=== PATIENT | female | born 1945 | race Caucasian/White ===

== ENCOUNTER 2022-05-27 07:14 | Outpatient (REF) | payer MEDICARE, OTHER, SELFPAY ==
--- NOTE | ~2022-05-27 | XR_ITS ---
EXAMINATION: XR HAND WRIST, RIGHT XR HAND WRIST, LEFT CLINICAL INFORMATION: Bilateral hand and wrist pain. No injury. Pain right ankle and joints right foot, M25.571 COMPARISON: None TECHNIQUE: The right hand and wrist are imaged together in 4 large [id number] images with an additional navicular view for a total of 5 views. The left hand and wrist are imaged together in 3 large [id number] images with an additional navicular view for a total of 4 views. FINDINGS: Right: Mild generalized osteopenia. No superimposed periarticular demineralization. Ulnar variance is within neutral. There is borderline narrowing proximal radial carpal compartment. No erosive change or chondrocalcinosis. There are moderate to prominent osteoarthritic changes first carpometacarpal joint. Mild narrowing second, third, and fifth MCP joints without erosive change or subchondral sclerosis. Mild narrowing PIP joints. There are mild degenerative changes DIP joints, greatest index finger. No erosive changes. Left: Mild generalized osteopenia. No superimposed periarticular demineralization. Ulnar variance is within neutral. No erosive change or chondrocalcinosis. There are moderate to prominent osteoarthritic changes first carpometacarpal joint. Mild narrowing second MCP joint without erosive change or subchondral sclerosis. Mild narrowing PIP joints. Mild degenerative changes DIP joints, greatest index finger. No erosive changes. XR/XR hand wrist RT IMPRESSION: -Bilateral moderate to prominent osteoarthritis first CMC joints. -Variable bilateral mild narrowing MCP and interphalangeal joints. No erosive changes.
--- NOTE | ~2022-05-27 | XR_ITS ---
EXAMINATION: XR HAND WRIST, RIGHT XR HAND WRIST, LEFT CLINICAL INFORMATION: Bilateral hand and wrist pain. No injury. Pain right ankle and joints right foot, M25.571 COMPARISON: None TECHNIQUE: The right hand and wrist are imaged together in 4 large [id number]-[id number] images with an additional navicular view for a total of 5 views. The left hand and wrist are imaged together in 3 large [id number] images with an additional navicular view for a total of 4 views. FINDINGS: Right: Mild generalized osteopenia. No superimposed periarticular demineralization. Ulnar variance is within neutral. There is borderline narrowing proximal radial carpal compartment. No erosive change or chondrocalcinosis. There are moderate to prominent osteoarthritic changes first carpometacarpal joint. Mild narrowing second, third, and fifth MCP joints without erosive change or subchondral sclerosis. Mild narrowing PIP joints. There are mild degenerative changes DIP joints, greatest index finger. No erosive changes. Left: Mild generalized osteopenia. No superimposed periarticular demineralization. Ulnar variance is within neutral. No erosive change or chondrocalcinosis. There are moderate to prominent osteoarthritic changes first carpometacarpal joint. Mild narrowing second MCP joint without erosive change or subchondral sclerosis. Mild narrowing PIP joints. Mild degenerative changes DIP joints, greatest index finger. No erosive changes. XR/XR hand wrist LT IMPRESSION: -Bilateral moderate to prominent osteoarthritis first CMC joints. -Variable bilateral mild narrowing MCP and interphalangeal joints. No erosive changes.
[2022-05-27 09:29] LABS: MANUAL DIFF FLAG NO
[2022-05-27 10:12] LABS: Basophils Absolute Auto 0.1 X10*3/uL (0.0-0.2); Basophils Percent Auto 0.5 % (0-2); Eosinophils Absolute Auto 0.2 X10*3/uL (0.0-0.4); Eosinophils Percent Auto 1.2 % (0-4); Hematocrit 39.7 % (37.0-47.0); Hemoglobin 12.4 g/dl (12.0-16.0); Imm Gran Pct Auto 0.8 % (0.0-0.4); Lymphocytes Absolute Auto 1.6 X10*3/uL (1.2-4.9); Mean Corpuscular HGB Conc 31.2 g/dl (31.0-35.0); Mean Corpuscular Hemoglobin 28.1 pg (27.0-33.0); Mean Platelet Volume 10.4 fL (9.4-12.3); Monocytes Absolute Auto 0.7 X10*3/uL (0.1-1.2); Monocytes Percent Auto 5.6 % (2-11); Neutrophils Absolute Auto 10.4 x10*3/uL (2.0-8.3); Neutrophils Percent Auto 79.9 % (45-73); Platelet Count 361 X10*3/uL (160-400); Red Blood Count 4.41 X10*6/uL (4.20-5.50); Red Cell Distribution Width 14.8 % (11.0-16.0)
[2022-05-27 10:53] LABS: Erythrocyte Sedimentation Rate 8 MM/HR (0-20)
[2022-05-27 11:06] LABS: Estimated Average Glucose 126 mg/dL
[2022-05-27 11:09] LABS: Alanine Aminotransferase 21 U/L (0-31); Albumin Level 4.3 g/dL (3.5-5.0); Alkaline Phosphatase 74 U/L (39-117); Anion Gap 17 (12-20); Aspartate Amino Transferase 14 U/L (5-31); Bilirubin Total 0.8 mg/dL (0.0-1.0); Blood Urea Nitrogen 22 mg/dL (9-16); C Reactive Protein 0.54 mg/dL (< or = 0.50); Calcium 9.8 mg/dL (8.4-10.2); Carbon Dioxide 27 mmol/L (22-29); Chloride 101 mmol/L (96-108); Estimated Glomerular Filt Rate > 60; Glucose Random 110 mg/dL (60-115); Potassium 4.2 mmol/L (3.3-5.1); Rheumatoid Factor < 13.0 IU/mL (<15.0); Sodium 141 mmol/L (135-145)
[2022-05-27 11:12] LABS: Creatinine Urine 124.45 mg/dL; Total Protein Urine Random 12 mg/dL (<12)
[2022-05-27 11:32] LABS: HBS Num1 86.19 mIU/mL (0-7.99); HBc Num1 0.14 S/CO (0.00-0.79); HBsAGNum1 0.27 S/CO (0.00-0.99); Hepatitis B Core Antibody Nonreactive (Nonreactive); Hepatitis B Surface Antigen Negative (Negative); ~HepC Num1 0.07 S/CO (0.00-0.79); ~Hepatitis A Antibody IgM Nonreactive (Nonreactive); ~Hepatitis B Surface Antibody REACTIVE (Nonreactive); ~Hepatitis C Antibody Nonreactive (Nonreactive)
[2022-05-27 15:24] LABS: Appearance Urine Cloudy; Color Urine Yellow; Glucose Urine UA Negative (Negative); Leukocyte Esterase Urine Moderate (2+) (Negative); Nitrite Urine Positive (Negative); UMIC TRIGGER UA YES; Urine Blood Negative (Negative); Urine Ketones Negative (Negative); Urine Protein Negative (Neg-Trace)
[2022-05-27 15:27] LABS: Bacteria Urine 4+ (None Seen); Hyaline Casts Urine 0-2 /LPF (0-2); RBC Urine 0-2 /HPF (0-2); WBC Urine 21-50 /HPF (0-5)
[2022-05-29 19:48] LABS: TS Negative Control Passed; TS Panel A 0; TS Panel B 0; TS Positive Control Passed; TSpotTB Negative (Negative)
[2022-05-30 13:33] LABS: IgA 123 mg/dL (70-320); IgG 1087 mg/dL (600-1540); IgM 29 mg/dL (50-300)
[2022-05-30 14:54] LABS: Anti Nuclear Antibody Screen POSITIVE (NEGATIVE); Anti Nuclear Antibody Titer 1:40 titer; Prot Elec - Albumin 4.2 g/dL (3.8-4.8); Prot Elec - Alpha1 0.3 g/dL (0.2-0.3); Prot Elec - Beta 1 0.5 g/dL (0.4-0.6); Prot Elec - Beta 2 0.3 g/dL (0.2-0.5); Prot Elec - Total Protein 7.3 g/dL (6.1-8.1)
[2022-05-30 20:58] LABS: Anti DNA DS Antibody <1 IU/mL; Antibody to SS-A Antigen <1.0 NEG AI (<1.0 NEG); Antibody to SS-B Antigen <1.0 NEG AI (<1.0 NEG); Myeloperoxidase Antibody <1.0 AI; Proteinase 3 PR3 Antibodies <1.0 AI; SM/Ribonucleoprotein Ab <1.0 NEG AI (<1.0 NEG); Smith Protein <1.0 NEG AI (<1.0 NEG)
[2022-05-31 06:09] LABS: Complement C3 158 mg/dL (83-193)
[2022-05-31 12:29] LABS: Cyclic Citrullinated Peptide <16 UNITS
[2022-06-01 23:44] LABS: PTT (LAC) Screen 31 sec (<=40)
[2022-06-02 14:24] LABS: DNAds, Crithidia Antibody Negative (Negative)
[2022-06-02 21:20] LABS: Aldolase 5.8 U/L (<=8.1)
[2022-06-03 14:54] LABS: Centromere Protein A Ab <11 SI (<11); Centromere Protein B Ab <11 SI (<11); Fibrillarin Ab <11 SI (<11); PM SCL 100 Ab <11 SI (<11); PM SCL 75 Ab <11 SI (<11); RNA Polymerase III RP11 Ab <11 SI (<11); RNA Polymerase III RP155 Ab <11 SI (<11); SCL-70 Extractable Nuclear Ab <11 SI (<11); Th-To Ab <11 SI (<11); U1 SNRNP RNP 70KD <11 SI (<11); U1 SNRNP RNP A <11 SI (<11); U1 SNRNP RNP C <11 SI (<11)
[2022-06-03 20:18] LABS: Beta-2 Glycoprotein IgG <2.0 U/mL (<20.0); Beta-2 Glycoprotein IgM <2.0 U/mL (<20.0)
[2022-06-09 17:07] LABS: Cytosolic 5'nuc 1A Ab IgG <5 Units; Ej Ab <11 SI (<11); HMGCR Ab IgG <2 CU (<20); Jo-1 Ab <11 SI (<11); MDA5 Ab <11 SI (<11); Mi-2 alpha Ab <11 SI (<11); Mi-2 beta Ab <11 SI (<11); NXP-2 (MJ) Ab <11 SI (<11); Oj Ab <11 SI (<11); Pl-12 Ab <11 SI (<11); Pl-7 Ab <11 SI (<11); SRP Ab <11 SI (<11); TIF1 gamma Ab <11 SI (<11)
[2022-06-18 04:47] LABS: Cardiolipin IgG Ab <2.0 GPL-U/mL (<20.0); Cardiolipin IgM Ab <2.0 MPL-U/mL (<20.0)
== END 2022-05-27 07:15 | disposition home or self-care (01) ==
LOC: HO.XRAY 07:14
PROVIDERS: PCP Internal Medicine; Visit Provider Student in an Organized Health Care Education/Training Program
DX: M25.571 Pain in right ankle and joints of right foot (principal); M32.9 Systemic lupus erythematosus, unspecified; D68.61 Antiphospholipid syndrome; G89.29 Other chronic pain; Z79.52 Long term (current) use of systemic steroids; Z11.59 Encounter for screening for other viral diseases; Z13.1 Encounter for screening for diabetes mellitus; Z11.7 Encounter for testing for latent tuberculosis infection; Z99.81 Dependence on supplemental oxygen; Z79.899 Other long term (current) drug therapy; Z72.89 Other problems related to lifestyle
CPT/HCPCS: 36415; 73110; 73130; 80053; 81001; 82085; 82550; 82784; 83036; 83516; 83520; 84156; 84165; 84182; 84550; 85025; 85597; 85613; 85652; 85730; 86021; 86038; 86039; 86140; 86146; 86147; 86160; 86200; 86225; 86235; 86255; 86334; 86431; 86481; 86704; 86706; 86709; 86803; 87340; 99202

== ENCOUNTER 2022-06-08 08:37 | Outpatient (REF) | payer MEDICARE, OTHER, SELFPAY ==
--- NOTE | ~2022-06-08 | MM_ITS ---
EXAMINATION: BONE DENSITOMETRY CLINICAL INDICATION: Long-term (current) use of systemic steroids. COMPARISON: None (current study represents initial baseline exam). TECHNIQUE: Using a [employer] DXA System (software version: 13.1) manufactured by [employer], dual-energy x-ray absorptiometry was performed of the lumbar spine and left hip. The images are of good technical quality. Summary results are attached. FINDINGS: AP SPINE L1-L4: BMD 1.267 g/cm2, Z-score 1.6, T-score 0.7, normal. LEFT FEMUR, NECK: BMD 0.830 g/cm2, Z-score -0.1, T-score -1.5, osteopenia. LEFT FEMUR, TOTAL: BMD 0.968 g/cm2, Z-score 0.9, T-score -0.3, normal. IDENTIFIED RISK FACTORS: Menopause, glucocorticoids (chronic), history of fracture (adult), thiazide. HISTORY OF FRACTURE: Other. MEDICATIONS: Calcium, vitamin D. MM/XR DEXA axial skeleton IMPRESSION: 1. DIAGNOSIS: Osteopenia based on the lowest T-score value of -1.5 in the femoral neck applying World Health Organization criteria. 2. 10-YEAR FRACTURE RISK PREDICTION, FRAX: Major osteoporotic fracture (clinical spine, forearm, hip or shoulder) 25.7%. Hip fracture 5.8%. 3. Treatment Recommendations: NOF guidelines recommend consideration for treatment in postmenopausal women and men age 50 and older presenting with the following: -A hip or vertebral (clinical or morphometric) fracture. -T-score less than or equal to -2.5 at the femoral neck or spine after appropriate evaluation to exclude secondary causes. -Low bone mass at the hip or spine and a 10-year fracture probability by FRAX of greater than or equal to 3% for hip fracture or greater than or equal to 20% for major osteoporotic fracture based on the [place] adapted WHO algorithm. 4. Other Recommendations: All treatment decisions require clinical judgment and consideration of individual patient factors, including patient preferences, comorbidities, previous drug use, risk factors not captured in the FRAX model (e.g. frailty, falls, vitamin D deficiency, increased bone turnover, interval significant decline in bone density) and possible under or overestimation of fracture risk by FRAX. Additional medical evaluation for secondary cause of low bone mineral density may be appropriate. FUTURE SCAN RECOMMENDATION: People with diagnosed cases of osteoporosis or at high risk for fracture should have regular bone mineral density tests. For patients eligible for Medicare, routine testing is allowed once every 2 years. The testing frequency can be increased to one year for patients who have rapidly progressing disease, those who are receiving or discontinuing medical therapy to restore bone mass, or have additional risk factors.
== END 2022-06-08 08:38 | disposition home or self-care (01) ==
LOC: HO.MAMMO 08:37
PROVIDERS: PCP Internal Medicine; Visit Provider Student in an Organized Health Care Education/Training Program
DX: Z13.820 Encounter for screening for osteoporosis (principal); Z79.52 Long term (current) use of systemic steroids; Z78.0 Asymptomatic menopausal state
CPT/HCPCS: 77080

== ENCOUNTER → 2022-07-01 14:06 | Outpatient (BNVA) | payer MEDICARE, OTHER, SELFPAY | PROVIDERS: PCP Internal Medicine; Visit Provider Student in an Organized Health Care Education/Training Program | DX: M06.9 Rheumatoid arthritis, unspecified (principal); J84.9 Interstitial pulmonary disease, unspecified; Z79.52 Long term (current) use of systemic steroids | CPT/HCPCS: 99212 ==

== ENCOUNTER → 2022-07-13 12:34 | Outpatient (REF) | payer MEDICARE, OTHER, SELFPAY ==
--- NOTE | 2022-07-13 12:40 | CA_ITS ---
Transthoracic Echo with Contrast Patient (Last, First, Middle): Feli Glover, Gender: Female Date of : 1945 Age: 76 Procedure Date: 07/13/2022 Procedure Type: Transthoracic Echo with Contrast Location: OP Height: 170.18 cm Weight: 106.6 kg BSA: 2.17 m2 Heart Rate: 69 bpm BP: 122 / 62 mmHg Certified Welder: SB Referring MD: Shaila Kelly MD [facility] Worker: Tien Issa MD Symptoms: R06.02 - Shortness of breath Study Quality: Adequate w contrast ECG Rhythm: Sinus Conclusions: - 1. Hyperdynamic LV ejection fraction greater than 70% with impaired relaxation filling pattern 2. Cardiac valvular Dopplers within normal limits 3. Upper limits of normal RV systolic pressure 4. Mildly dilated ascending aorta 5. No pericardial effusion Findings Procedure Information Contrast agent, definity, is being given per protocol without apparent complications. Left Ventricle Normal left ventricular cavity size. There is normal left ventricular wall thickness. The left ventricular systolic function is hyperdynamic. The visually estimated ejection fraction is >70%. Spectral Doppler is indicative of an impaired relaxation filling pattern. Right Ventricle The right ventricle was not well visualized. Atria The left atrium is normal in size. Interatrial shunt cannot be excluded. The right atrium was not well visualized. Aortic Valve The aortic valve was not well visualized. There is mild calcification of the aortic valve. There is no aortic valve stenosis. There is no aortic valve regurgitation. Mitral Valve The mitral valve was not well visualized. There is mild anterior mitral leaflet thickening. There is mild mitral annular calcification. There is trace mitral valve regurgitation. There is no mitral valve stenosis. Pulmonic Valve The pulmonic valve was not well visualized. Tricuspid Valve Likely normal tricuspid valve structure and function. There is mild tricuspid valve regurgitation. Normal right atrial pressure. There is no evidence of pulmonary hypertension. Great Vessels The pulmonary artery was not well visualized. There is mild dilatation of the ascending aorta. Venous The inferior vena cava is normal in size and collapses greater than 50% with inspiration. Pericardium/Pleural There is no evidence of pericardial effusion. Prior Study Comparison No prior study available for comparison. Measurements 2D Linear Measurements IVSd: 1.12 0.6-0.9/0.6-1.0 cm LVIDd: 4.67 3.9-5.3/4.2-5.9 cm LVIDd Index: 2.15 2.4-3.2/2.2-3.1 cm/m2 LVIDs: 3.15 2.0-3.6 cm LVPWd: 1.39 0.7-1.1 cm LA Diam: 3.90 2.7-3.8/3.0-4.0 cm LAIDs Index: 1.80 1.5-2.3 cm/m2 LV Mass: 279.03 67-162/88-224 g LV Mass Index: 128.59 43-95/49-115 g/m2 LVOT Diam: 2.20 3.0+(-)1.3 cm 2D Systolic Function EF 4C: 73.50 >55% EF 2C: 75.20 >55% EF BiP: 73.40 >55% Mitral Valve MV Pk E: 0.81 MV PK A: 1.22 MV Decel Time: 284.00 E/A: 0.70 E'Lateral: 4.73 E'Medial: 5.08 E/E' Med: 15.90 E/E' Lat: 17.10 PHT: 83.00 MVA PHT: 2.65 Decel Medina: 2.84 Aortic Valve AoV Pk Han: 1.48 AoV Pk Grad: 9.00 ANDREY: 3.42 LVOT LVOT Pk Han: 1.36 LVOT Mn Han: 0.98 LVOT VTI: 0.30 LVOT Pk Grad: 7.00 LVOT Mn Grad: 4.00 LVOT Diam: 2.20 LVOT Area: 3.80 Diastolic Function MV Pk E: 0.81 MV Pk A: 1.22 E/A: 0.70 E'Medial: 5.08 E/E' Med: 15.90 E' Laterial: 4.73 E/E' Lat: 17.10 Right Ventricle TAPSE (mm): 15.30 TVS' Han: 13.90 Tricuspid Valve TR Pk Han: 2.88 TR Pk Grad: 33.00 RA Press: 3.00 RVSP: 36.00 Great Vessels Aorta Sinus of Valsalva: 3.80 2.0-3.5 cm Ao Asc: 4.10 2.1-3.4 cm Pulmonary Valve PV Pk Han: 1.11 Peak PV Grad: 5.00 Updated in Other Vendor System with Status of Final Tien Issa MD electronically signed on 07/14/2022 11:58:56 AM with status of Final
[2022-07-13 12:51] LABS: MANUAL DIFF FLAG NO
[2022-07-13 13:16] LABS: Basophils Absolute Auto 0.1 X10*3/uL (0.0-0.2); Basophils Percent Auto 0.6 % (0-2); Eosinophils Percent Auto 0.3 % (0-4); Hematocrit 38.5 % (37.0-47.0); Hemoglobin 12.2 g/dl (12.0-16.0); Imm Gran Abs Auto 0.13 X10*3/uL (0.00-0.03); Imm Gran Pct Auto 1.1 % (0.0-0.4); Lymphocytes Absolute Auto 1.3 X10*3/uL (1.2-4.9); Lymphocytes Percent Auto 11.8 % (20-40); Mean Corpuscular HGB Conc 31.7 g/dl (31.0-35.0); Mean Corpuscular Hemoglobin 28.6 pg (27.0-33.0); Mean Corpuscular Volume 90.4 fL (80.0-98.0); Mean Platelet Volume 10.5 fL (9.4-12.3); Monocytes Absolute Auto 0.5 X10*3/uL (0.1-1.2); Monocytes Percent Auto 4.6 % (2-11); Neutrophils Absolute Auto 9.3 x10*3/uL (2.0-8.3); Neutrophils Percent Auto 81.6 % (45-73); Platelet Count 340 X10*3/uL (160-400); Red Blood Count 4.26 X10*6/uL (4.20-5.50); Red Cell Distribution Width 14.8 % (11.0-16.0); White Blood Count 11.4 X10*3/uL (4.8-10.8)
[2022-07-13 13:38] LABS: Alanine Aminotransferase 21 U/L (0-31); Albumin Level 4.4 g/dL (3.5-5.0); Alkaline Phosphatase 61 U/L (39-117); Anion Gap 14 (12-20); Aspartate Amino Transferase 18 U/L (5-31); Bilirubin Total 0.5 mg/dL (0.0-1.0); Blood Urea Nitrogen 25 mg/dL (9-16); C Reactive Protein < 0.10 mg/dL (< or = 0.50); Calcium 10.2 mg/dL (8.4-10.2); Carbon Dioxide 27 mmol/L (22-29); Chloride 101 mmol/L (96-108); Estimated Glomerular Filt Rate > 60; Glucose Random 130 mg/dL (60-115); Potassium 4.1 mmol/L (3.3-5.1); Sodium 138 mmol/L (135-145); Total Protein 6.8 g/dL (6.5-8.0)
[2022-07-13 14:03] LABS: Erythrocyte Sedimentation Rate 3 MM/HR (0-20)
== END ==
LOC: HO.CARD 12:34
PROVIDERS: PCP Internal Medicine; Visit Provider Student in an Organized Health Care Education/Training Program
DX: R06.02 Shortness of breath (principal); M06.9 Rheumatoid arthritis, unspecified
CPT/HCPCS: 36415; 80053; 85025; 85652; 86140; 93306; Q9957

== ENCOUNTER → 2022-08-23 11:48 | Outpatient (BNVA) | payer MEDICARE, OTHER, SELFPAY | PROVIDERS: Visit Provider Student in an Organized Health Care Education/Training Program | DX: Z71.89 Other specified counseling (principal) | CPT/HCPCS: 99211 ==

== ENCOUNTER 2022-10-18 11:44 | Outpatient (AMB) | payer MEDICARE, OTHER, SELFPAY ==
--- NOTE | 2022-10-18 12:04 | A.OFFVIS_ITS ---
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: No Allergies pirfenidone Adverse Reaction (Mild, Verified 10/18/22 12:11) Hives Iodinated Contrast Media Adverse Reaction (Unknown, Verified 10/18/22 12:11) Chest Pain Medication List - Last Reconciled 10/18/22 by Shaila Kelly MD alprazolam 1 mg PO TID PRN amlodipine 5 mg PO DAILY atorvastatin 40 mg PO DAILY benzonatate 100 mg PO TID PRN calcium carbonate-vitamin D2 600 mg calcium- 200 unit tabs PO DAILY clonidine HCl 0.2 mg PO BID diclofenac sodium 1% 4 grams topical QID fluoxetine 20 mg PO DAILY isosorbide mononitrate ER 30 mg PO DAILY lisinopril-hydrochlorothiazide 20-25 mg 1 tab PO DAILY montelukast 10 mg PO DAILY omeprazole 40 mg PO BID prednisone Take 2 tabs by mouth once daily for 2 weeks then 1.5 tabs for 2 weeks then 1 tab daily for 2 weeks then half tab daily for 2 weeks then stop tocilizumab (Actemra ACTPen) 162 mg (0.9 mL) subcut Q2W trazodone 50 mg PO BEDTIME PRN umeclidinium 62.5 mcg/actuation (Incruse Ellipta) ea inhalation HPI HPI Comments History of Present Illness Details 76-year-old female with seronegative rheumatoid arthritis and inters titial lung disease on 4 L of oxygen returns for follow-up. She has been using Actemra for almost 3 months now. She states that her joint inflammation is better overall but states that the medication works for about 1 week to 10 days and it starts wearing off. She continues to have pain in her lower back. States that her knees buckle and she feels that she is about to fall but she has not fallen any time recently. States that she sometimes gets chest pain with exertion. She is currently taking Ofev regularly without GI upset Initial history: This is a 76-year-old female with a past medical history of ILD on 4 L of oxygen who presents for evaluation of multiple joint pains. Patient states she used to follow up with tableau administrator Dr. Marroquin since her 50s. She states she was told she has osteoarthritis. She mentions that her sister was recently diagnosed with rheumatoid arthritis. 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 States that her shortness of breath have been progressively worsening. Patient mentions that over the last 6 months she has developed worsening joint pain affecting her wrists, knees, especially the ankles, back pain radiating to her hips.. Sometimes associated with swelling. States that the joint pain and stiffness is generally much worse in the morning, morning stiffness improving after at least 1 hour. She was prescribed varying doses of prednisone up to 40 mg daily, currently she is finishing up a prednisone taper. She is currently on 10 mg of prednisone daily. Stated that the prednisone at least gives her a 50% relief. She denies Raynaud's. Denies any skin changes. Mentions that recently she has been having difficulty swallowing liquids. Denies any history of DVT/PE. [facility] Medical History Anxiety Atherosclerosis Barretts esophagus Depression Gastroesophageal reflux disease with hiatal hernia Generalized osteoarthritis Hypertension [facility] systemic steroid user Low back pain Lung disease, interstitial Subclinical hypothyroidism Surgical History Hx of colonoscopy Family History Mother Type 2 diabetes mellitus Hypertension Rheumatoid arthritis Hyperlipidemia Renal failure Father Coronary artery disease Brother Hyperlipidemia Hypertension Sister Hyperlipidemia Hypertension Social History Alcohol intake: never Patient Tobacco Use Status: Former Tobacco user Quit Date: 1989 Current occupational status: retired 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 Review of Systems Const Reports weight gain (Due to reduced mobility) Eyes Reports no additional complaints ENT Reports dry mouth Card Reports dyspnea and Reports dyspnea on exertion Resp Reports dyspnea and Reports dyspnea on exertion GI Reports no additional complaints Musc Reports arthralgias, Reports joint swelling and Reports stiffness Neuro Reports no additional complaints Psych Reports abnormal sleep pattern, Reports anxiety and Reports depression Physical Exam Vital Signs: Last Vital Signs Temp 97.8 F 10/18/22 12:06 Pulse 96 10/18/22 12:06 Resp 19 10/18/22 12:06 BP 126/68 10/18/22 12:06 Oxygen Delivery Method Nasal Cannula 10/18/22 12:06 Oxygen Flow Rate 4 10/18/22 12:06 Const General: cooperative, healthy appearing and comfortable Nutritional Appearance: obese Orientation/consciousness: patient oriented x3 HEENT Other: Mildly dry oral mucosa Head: Yes normocephalic and Yes atraumatic Resp Effort & Inspection: normal respiratory effort and able to speak in complete sentences Auscultation: diminished lung sounds bilateral in the lower lung rayo Cardio Rate: regular rate Rhythm: regular rhythm Heart sounds: S1 normal heart sound present and S2 normal heart sound present GI Inspection: No distended Palpation (GI): Soft to palpation and nontender Skin General skin exam: no rashes or lesions noted Neuro General: patient oriented x3 Extrem Other: No synovitis hands wrists bilaterally Bilateral knee crepitus Left knee pain with full flexion Right ankle swelling and tenderness at the lateral aspect, left ankle swelling without tenderness Normal nailfold capillaroscopy Results Reviewed Results Reviewed: PFTs 2018? TLC 87%? FVC 87%? DLCO 62% PFTs 10/21/2019? TLC 73% FVC 89%? DLCO 52% PFTs 12/2020? TLC 69% FVC 74% DLCO 40% HRCT chest comment per patient's resource room teacher Dr. Robin Last CT chest was in 12/2020 and this noted subpleural reticulation and traction bronchiectasis, some mild ground-glass changes.? Overall the CT scan did show mild progresses since 2018 and the progression since 2016 Assessment & Plan Assessment & Plan (1) Rheumatoid arthritis: Comment: seroneg dx 06/23 Actemra started 07/24 Code(s): M06.9 - Rheumatoid arthritis, unspecified Plan: This is a 76-year-old female with seronegative RA& concomitant interstitial lung disease returns for follow-up. Was started on Actemra 3 months ago which is effective for about a week to 10 days then joint pain and swelling returns. Patient is heavier than 100 kg and should qualify for Actemra 162 mg once weekly. Advance Actemra to 162 mg once weekly. Patient stated that she has had labs done recently by her PCP and resource room teacher. Advised patient to reach out to her providers to send me recent labs. Labs before next visit in 3 months Patient has low back pain is likely due to degenerative disc disease of lumbar spine. Patient has done physical therapy for her back in the past without improvement. I suggested pain management evaluation but patient declined. She also states that her knees buckle, but no history of falls. 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 However her FRAX for major osteoporotic fracture is 25.7% and hip fracture is 5.8%. Steroids have been discontinued. Discussed risks and benefits of alendronate. Start alendronate 70 mg once weekly. Continue calcium and vitamin-D (3) Lung disease, interstitial: Code(s): J84.9 - Interstitial pulmonary disease, unspecified Plan: Patient now able to tolerate Ofev. Continue to follow-up with pulmonary. 2D echo did not show evidence of pulmonary arterial hypertension (4) Ascending aortic aneurysm: Code(s): I71.21 - Aneurysm of the ascending aorta, without rupture Qualifiers: Presence of rupture: without rupture Qualified Code(s): I71.21 - Aneurysm of the ascending aorta, without rupture Plan: Referred to Cardiology Plan I spent 49 minutes reviewing patient's chart, evaluating patient, ordering diagnostic workup, counseling patient and documenting in the chart Orders: Orders Complete Blood Count Auto Diff 3 Months M06.9 - Rheumatoid arthritis, unspecified Comprehensive Met. Panel 3 Months M06.9 - Rheumatoid arthritis, unspecified C Reactive Protein 3 Months M06.9 - Rheumatoid arthritis, unspecified Erythrocyte Sedimentation Rate 3 Months M06.9 - Rheumatoid arthritis, unspecified Vitamin D 25-OH (D2 and D3) Today Z13.21 - Encounter for screening for nutritional disorder Referrals Cardiology Referral I71.21 - Aneurysm of the ascending aorta, without rupture Medications: New alendronate Take 1 tab once weekly. 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
[2022-10-18 12:06] VITALS: BP 126/68; PULSE 96; RESP 19; TEMP 36.6; BMI 36.3
== END 2022-10-18 13:25 | disposition home or self-care (01) ==
PROVIDERS: PCP Internal Medicine; Visit Provider Student in an Organized Health Care Education/Training Program
DX: M06.9 Rheumatoid arthritis, unspecified (principal); Z79.52 Long term (current) use of systemic steroids; J84.9 Interstitial pulmonary disease, unspecified; I71.21 Aneurysm of the ascending aorta, without rupture
CPT/HCPCS: 99215

== ENCOUNTER → 2022-10-18 11:44 | Outpatient (BNVA) | payer MEDICARE, OTHER, SELFPAY | PROVIDERS: PCP Internal Medicine; Visit Provider Student in an Organized Health Care Education/Training Program | DX: M06.9 Rheumatoid arthritis, unspecified (principal); J84.9 Interstitial pulmonary disease, unspecified; M54.50 Low back pain, unspecified; I71.21 Aneurysm of the ascending aorta, without rupture; Z99.81 Dependence on supplemental oxygen; Z79.52 Long term (current) use of systemic steroids; Z79.899 Other long term (current) drug therapy | CPT/HCPCS: 99212 ==

== ENCOUNTER 2023-01-13 11:25 | Outpatient (REF) | payer MEDICARE, OTHER, SELFPAY ==
[2023-01-13 11:34] LABS: MANUAL DIFF FLAG NO
[2023-01-13 12:49] LABS: Basophils Absolute Auto 0.1 X10*3/uL (0.0-0.2); Basophils Percent Auto 0.8 % (0-2); Eosinophils Absolute Auto 0.5 X10*3/uL (0.0-0.4); Eosinophils Percent Auto 4.5 % (0-4); Hematocrit 37.5 % (37.0-47.0); Imm Gran Abs Auto 0.03 X10*3/uL (0.00-0.03); Imm Gran Pct Auto 0.3 % (0.0-0.4); Lymphocytes Absolute Auto 2.8 X10*3/uL (1.2-4.9); Lymphocytes Percent Auto 27.1 % (20-40); Mean Corpuscular Hemoglobin 27.9 pg (27.0-33.0); Mean Corpuscular Volume 87.2 fL (80.0-98.0); Mean Platelet Volume 10.7 fL (9.4-12.3); Monocytes Absolute Auto 0.9 X10*3/uL (0.1-1.2); Monocytes Percent Auto 8.8 % (2-11); Neutrophils Percent Auto 58.5 % (45-73); Platelet Count 351 X10*3/uL (160-400); Red Cell Distribution Width 15.6 % (11.0-16.0); White Blood Count 10.3 X10*3/uL (4.8-10.8)
[2023-01-13 13:21] LABS: Alanine Aminotransferase 15 U/L (0-31); Albumin Level 4.4 g/dL (3.5-5.0); Alkaline Phosphatase 67 U/L (39-117); Anion Gap 17 (12-20); Aspartate Amino Transferase 16 U/L (5-31); Bilirubin Total 0.6 mg/dL (0.0-1.0); Blood Urea Nitrogen 10 mg/dL (9-16); C Reactive Protein 0.88 mg/dL (< or = 0.50); Calcium 9.5 mg/dL (8.4-10.2); Carbon Dioxide 27 mmol/L (22-29); Chloride 100 mmol/L (96-108); Estimated Glomerular Filt Rate > 60; Glucose Random 88 mg/dL (60-115); Potassium 3.1 mmol/L (3.3-5.1); Sodium 141 mmol/L (135-145); Total Protein 7.7 g/dL (6.5-8.0)
[2023-01-13 13:29] LABS: Erythrocyte Sedimentation Rate 18 MM/HR (0-20)
[2023-01-17 15:48] LABS: Vitamin D 25-OH, D2 <4 ng/mL; Vitamin D 25-OH, D3 29 ng/mL; Vitamin D 25-OH, Total 29 ng/mL (30-100)
== END 2023-01-13 11:26 | disposition home or self-care (01) ==
LOC: HO.LAB 11:25
PROVIDERS: PCP Internal Medicine; Visit Provider Student in an Organized Health Care Education/Training Program
DX: M06.9 Rheumatoid arthritis, unspecified (principal); E55.9 Vitamin D deficiency, unspecified; Z13.21 Encounter for screening for nutritional disorder
CPT/HCPCS: 36415; 80053; 82306; 85025; 85652; 86140

== ENCOUNTER 2023-01-18 09:45 | Outpatient (AMB) | payer MEDICARE, OTHER, SELFPAY ==
[2023-01-18 10:06] VITALS: BP 106/78; PULSE 77; RESP 19; TEMP 36.6; O2SAT 95; BMI 35.5
--- NOTE | 2023-01-18 10:06 | MHC.OFFVIS ---
Intake Vital Signs 01/18/23 10:06 Height 5 ft 6 in Weight 220 lb BMI 35.5 BP 106/78 Blood Pressure Location Rt brachial Respiration 19 Pulse 77 Pulse Source Pulse Oximeter Temp 97.9 F Temp Source Skin Pulse Oximetry (%) 95 Oxygen Delivery Method Nasal Cannula Oxygen Flow Rate 4 Intake Visit Reasons: RA/follow up and actemra teaching Intake Note: Patient presents today to follow up on RA. Referrals- Cardio booked 01/16/23 Conservation Science Teacher Required: No Accompanied by: Self / Same As Patient Allergies pirfenidone Adverse Reaction (Mild, Verified 01/18/23 10:08) Hives Iodinated Contrast Media Adverse Reaction (Unknown, Verified 01/18/23 10:08) Chest Pain Medication List - Last Reconciled 01/18/23 by Sue Wiley RN alendronate 70 mg PO QWEEK alprazolam 1 mg PO TID PRN amlodipine 5 mg PO DAILY atorvastatin 40 mg PO DAILY benzonatate 100 mg PO TID PRN calcium carbonate-vitamin D2 600 mg calcium- 200 unit tabs PO DAILY clonidine HCl 0.2 mg PO BID diclofenac sodium 1% 4 grams topical QID fluoxetine 20 mg PO DAILY isosorbide mononitrate ER 30 mg PO DAILY lisinopril-hydrochlorothiazide 20-25 mg 1 tab PO DAILY montelukast 10 mg PO DAILY omeprazole 40 mg PO BID prednisone Take 2 tabs by mouth once daily for 2 weeks then 1.5 tabs for 2 weeks then 1 tab daily for 2 weeks then half tab daily for 2 weeks then stop tocilizumab (Actemra ACTPen) 162 mg (0.9 mL) subcut QWEEK trazodone 50 mg PO BEDTIME PRN umeclidinium 62.5 mcg/actuation (Incruse Ellipta) ea inhalation HPI HPI Comments History of Present Illness Details 76-year-old female with seronegative rheumatoid arthritis and interstitial lung disease on 4 L of oxygen returns for follow-up. States that since Actemra was increased to weekly dosing her joint stiffness and inflammation is much better overall. She states that some days she has difficulty with injecting the Actemra. She received teaching by Sue butterfield nurse in clinic today. Her her ankle swelling is improved and she can wear shoes now. She states however that she would still get some days with joint pain. Over the last 3 months, she used prednisone about 6 days. She recalls an episode of diffuse joint pain after taking the flu vaccine, COVID vaccine and RSV vaccine in 1 day. Mentions that her knees buckle rarely. Did not fall. Shortness of breath is about the same. She gets intermittent mid sternal chest pain. Unrelated to activity. Compliant with Fosamax. Initial history: This is a 76-year-old female with a past medical history of ILD on 4 L of oxygen who presents for evaluation of multiple joint pains. Patient states she used to follow up with wildlife conservation officer Dr. Marroquin since her 50s. She states she was told she has osteoarthritis. She mentions that her sister was recently diagnosed with rheumatoid arthritis. 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 States that her shortness of breath have been progressively worsening. Patient mentions that over the last 6 months she has developed worsening joint pain affecting her wrists, knees, especially the ankles, back pain radiating to her hips.. Sometimes associated with swelling. States that the joint pain and stiffness is generally much worse in the morning, morning stiffness improving after at least 1 hour. She was prescribed varying doses of prednisone up to 40 mg daily, currently she is finishing up a prednisone taper. She is currently on 10 mg of prednisone daily. Stated that the prednisone at least gives her a 50% relief. She denies Raynaud's. Denies any skin changes. Mentions that recently she has been having difficulty swallowing liquids. Denies any history of DVT/PE. [facility] Medical History [facility] systemic steroid user Subclinical hypothyroidism Depression Lung disease, interstitial Low back pain Hypertension Generalized osteoarthritis Gastroesophageal reflux disease with hiatal hernia Barretts esophagus Atherosclerosis Anxiety Surgical History Hx of colonoscopy Family History Mother Type 2 diabetes mellitus Hypertension Rheumatoid arthritis Hyperlipidemia Renal failure Father Coronary artery disease Brother Hyperlipidemia Hypertension Sister Hyperlipidemia Hypertension Social History Alcohol intake: never Patient Tobacco Use Status: Former Tobacco user Quit Date: 1989 Current occupational status: retired 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 Review of Systems Card Reports dyspnea and Reports dyspnea on exertion Resp Reports dyspnea and Reports dyspnea on exertion Musc Reports arthralgias and Reports stiffness Neuro Reports no additional complaints Psych Reports abnormal sleep pattern, Reports anxiety and Reports depression Physical Exam Vital Signs: Last Vital Signs Temp 97.9 F 01/18/23 10:06 Pulse 77 01/18/23 10:06 Resp 19 01/18/23 10:06 BP 106/78 01/18/23 10:06 Pulse Ox 95 01/18/23 10:06 Oxygen Delivery Method Nasal Cannula 01/18/23 10:06 Oxygen Flow Rate 4 01/18/23 10:06 BMI result Body Mass Index 35.5 Const General: cooperative, healthy appearing and comfortable Nutritional Appearance: obese Orientation/consciousness: patient oriented x3 HEENT Other: Mildly dry oral mucosa Head: Yes normocephalic and Yes atraumatic Resp Effort & Inspection: normal respiratory effort and able to speak in complete sentences Auscultation: diminished lung sounds bilateral in the lower lung rayo Cardio Rate: regular rate Rhythm: regular rhythm Heart sounds: S1 normal heart sound present and S2 normal heart sound present GI Inspection: No distended Palpation (GI): Soft to palpation and nontender Skin General skin exam: no rashes or lesions noted Neuro General: patient oriented x3 Extrem Other: No synovitis hands wrists bilaterally Bilateral knee crepitus Left knee pain with full flexion Bilateral soft tissue ankle swelling without tenderness or warmth Normal nailfold capillaroscopy Results Reviewed Results Reviewed: PFTs 2018? TLC 87%? FVC 87%? DLCO 62% PFTs 10/21/2019? TLC 73% FVC 89%? DLCO 52% PFTs 12/2020? TLC 69% FVC 74% DLCO 40% HRCT chest comment per patient's group home manager Dr. Robin Last CT chest was in 12/2020 and this noted subpleural reticulation and traction bronchiectasis, some mild ground-glass changes.? Overall the CT scan did show mild progresses since 2018 and the progression since 2016 Assessment & Plan Assessment & Plan (1) Rheumatoid arthritis: Comment: seroneg dx 06/23 Actemra started 07/24 Code(s): M06.9 - Rheumatoid arthritis, unspecified Qualifiers: Rheumatoid arthritis location: multiple sites Rheumatoid factor presence: without rheumatoid factor Qualified Code(s): M06.09 - Rheumatoid arthritis without rheumatoid factor, multiple sites Plan: This is a 76-year-old female with seronegative RA& concomitant interstitial lung disease returns for follow-up. Doing better since Actemra dose was increased to weekly dosing. Continue Actemra 162 mg weekly. Can take prednisone 5-10 mg once daily as needed for joint pain She also states that her knees buckle rarely, but no history of falls. I suggested Orthopedics evaluation, patient declined. 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 However her FRAX for major osteoporotic fracture is 25.7% and hip fracture is 5.8%. Patient is now only on prednisone 5-10 mg daily as needed. Over the last 3 months but, patient used prednisone 6 6 times Alendronate was started 10/2022. Well tolerated. Continue. Plan to repeat DEXA 10/2024 (3) Lung disease, interstitial: Code(s): J84.9 - Interstitial pulmonary disease, unspecified Plan: Patient now able to tolerate Ofev. Continue to follow-up with pulmonary. 2D echo did not show evidence of pulmonary arterial hypertension (4) Ascending aortic aneurysm: Code(s): I71.21 - Aneurysm of the ascending aorta, without rupture Qualifiers: Presence of rupture: without rupture Qualified Code(s): I71.21 - Aneurysm of the ascending aorta, without rupture Plan: Referred to Cardiology (5) Chest pain: Code(s): R07.9 - Chest pain, unspecified Qualifiers: Chest pain type: other chest pain Qualified Code(s): R07.89 - Other chest pain Plan: Patient has an appointment with Cardiology tomorrow (6) Chronic hypokalemia: Code(s): E87.6 - Hypokalemia Plan: Mild hypokalemia, can be related to diarrhea from Ofev. Advised patient to follow-up with her group home manager. Plan I spent 49 minutes reviewing patient's chart, evaluating patient, ordering diagnostic workup, counseling patient and documenting in the chart Orders: Orders Complete Blood Count Auto Diff 3 Months M06.9 - Rheumatoid arthritis, unspecified Erythrocyte Sedimentation Rate 3 Months M06.9 - Rheumatoid arthritis, unspecified Comprehensive Met. Panel 3 Months M06.9 - Rheumatoid arthritis, unspecified C Reactive Protein 3 Months M06.9 - Rheumatoid arthritis, unspecified Medications: Changed From prednisone Take 2 tabs by mouth once daily for 2 weeks then 1.5 tabs for 2 weeks then 1 tab daily for 2 weeks then half tab daily for 2 weeks then stop 70 tabs 1RF To prednisone 10 mg PO DAILY PRN 30 tabs 1RF pain NS Coding Level of Care Code Est Pt Level 5 (58006) Diagnoses Rheumatoid arthritis of multiple sites with negative rheumatoid factor M06.09 Rheumatoid arthritis location: multiple sites Rheumatoid factor presence: without rheumatoid factor [facility] systemic steroid user Z79.52 Lung disease, interstitial J84.9 Aneurysm of ascending aorta without rupture I71.21 Presence of rupture: without rupture Other chest pain R07.89 Chest pain type: other chest pain Chronic hypokalemia E87.6
== END 2023-01-18 10:44 | disposition home or self-care (01) ==
PROVIDERS: PCP Internal Medicine; Visit Provider Student in an Organized Health Care Education/Training Program
DX: M06.09 Rheumatoid arthritis without rheumatoid factor, multiple sites (principal); Z79.52 Long term (current) use of systemic steroids; J84.9 Interstitial pulmonary disease, unspecified; I71.21 Aneurysm of the ascending aorta, without rupture; R07.89 Other chest pain; E87.6 Hypokalemia
CPT/HCPCS: 99215

== ENCOUNTER → 2023-01-18 09:45 | Outpatient (BNVA) | payer MEDICARE, OTHER, SELFPAY | PROVIDERS: PCP Internal Medicine; Visit Provider Student in an Organized Health Care Education/Training Program | DX: M06.09 Rheumatoid arthritis without rheumatoid factor, multiple sites (principal); J84.9 Interstitial pulmonary disease, unspecified; I71.21 Aneurysm of the ascending aorta, without rupture; R07.89 Other chest pain; E87.6 Hypokalemia; Z79.52 Long term (current) use of systemic steroids | CPT/HCPCS: 99212 ==

== ENCOUNTER 2023-01-19 13:12 | Outpatient (AMB) | payer MEDICARE, OTHER, SELFPAY ==
[2023-01-19 13:19] VITALS: BP 114/62; PULSE 84
--- NOTE | 2023-01-19 13:19 | MHC.OFFVIS ---
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/Mild dilation of thoracic aorta+ CP Intake Note: NPV w/ EKG Speech And Language Assistant Required: No Accompanied by: Self / Same As Patient Allergies pirfenidone Adverse Reaction (Mild, Verified 01/18/23 10:08) Hives Iodinated Contrast Media Adverse Reaction (Unknown, Verified 01/18/23 10:08) Chest Pain Medication List - Last Reconciled 01/19/23 by Ashutosh Valdovinos MD alendronate 70 mg PO QWEEK alprazolam 1 mg PO TID PRN amlodipine 5 mg PO DAILY atorvastatin 40 mg PO DAILY benzonatate 100 mg PO TID PRN calcium carbonate-vitamin D2 600 mg calcium- 200 unit tabs PO DAILY clonidine HCl 0.2 mg PO BID diclofenac sodium 1% 4 grams topical QID fluoxetine 20 mg PO DAILY isosorbide mononitrate ER 30 mg PO DAILY lisinopril-hydrochlorothiazide 20-25 mg 1 tab PO DAILY montelukast 10 mg PO DAILY omeprazole 40 mg PO BID prednisone 10 mg PO DAILY PRN NS tocilizumab (Actemra ACTPen) 162 mg (0.9 mL) subcut QWEEK trazodone 50 mg PO BEDTIME PRN umeclidinium 62.5 mcg/actuation (Incruse Ellipta) ea inhalation HPI HPI Comments History of Present Illness Details Feli is here for evaluation of dilated aorta seen on the echocardiogram. Patient herself denies any history of coronary disease or myocardial infarction. She states that she has seen [facility] [place] cardiology few years ago but does not have any regular follow-up. She gets occasional chest pains as well as jaw pain. These can happen randomly at rest as well as during exertion. However, her main issues rather chronic lung disease. She states she has a diagnosis of idiopathic pulmonary fibrosis and is on supplemental oxygen. Her life is quite limited because of that. She also has significant anxiety and depression which is evident on just having a conversation with her. [facility] Medical History nursing home systemic steroid user Subclinical hypothyroidism Depression Lung disease, interstitial Low back pain Hypertension Generalized osteoarthritis Gastroesophageal reflux disease with hiatal hernia Barretts esophagus Atherosclerosis Anxiety Surgical History Hx of colonoscopy Family History Mother Type 2 diabetes mellitus Hypertension Rheumatoid arthritis Hyperlipidemia Renal failure Father Coronary artery disease Brother Hyperlipidemia Hypertension Sister Hyperlipidemia Hypertension Social History Alcohol intake: never Patient Tobacco Use Status: Former Tobacco user Quit Date: 1989 Current occupational status: retired 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) Review of Systems Const Denies chills, Denies daytime sleepiness, Denies fatigue, Denies fever(s), Denies frequent falls, Denies night sweats, Denies snoring, Denies weakness, Denies weight gain and Denies weight loss Eyes Denies loss of vision ENT Denies dizziness and Denies hearing loss Card Denies chest pain, Denies chest pain with activity, Denies syncope, Denies rapid heart rate, Denies edema, Denies claudication, Denies leg edema, Denies lightheadedness, Denies palpitations, Denies dyspnea, Denies dyspnea on exertion and Denies orthopnea Resp Denies cough, Denies excessive phlegm production, Denies dyspnea, Denies dyspnea on exertion, Denies snoring and Denies wheezing GI Denies abdominal pain, Denies hematochezia, Denies change in bowel habits, Denies change in stool character, Denies heartburn, Denies nausea and Denies vomiting Denies hematuria, Denies urinary frequency and Denies dysuria Musc Denies arthralgias, Denies muscle weakness, Denies numbness and Denies tingling Skin/Breast Denies nail changes and Denies rash Neuro Denies Abnormal speech present, Denies dizziness, Denies syncope, Denies frequent falls, Denies loss of vision, Denies memory loss, Denies numbness, Denies tingling and Denies weakness Psych Denies depression and Denies memory loss Endo Denies fatigue and Denies palpitations Aller/Immun Denies wheezing Physical Exam Vital Signs: Last Vital Signs Pulse 84 01/19/23 13:19 BP 114/62 01/19/23 13:19 Const General: comfortable and no acute distress Orientation/consciousness: patient oriented x3 HEENT Other: Unremarkable Head: Yes normal to inspection Neck Neck: Yes normal visual inspection Chest Chest palpation & inspection: normal inspection of the chest Resp Auscultation: crackles Cardio Palpation: normal PMI Heart sounds: S1 normal heart sound present, S2 normal heart sound present, no gallops, no murmurs and no rubs GI Palpation (GI): Soft to palpation Back/Spine/Pelvis Other: unremarkable Skin General skin exam: no rashes or lesions noted Neuro General: patient oriented x3 Speech: No Abnormal speech present Extrem General: Yes normal to inspection Psych Mental Status: mental status grossly normal Office Procedures EKG Details: EKG with sinus rhythm at 84/Min; rightward axis; incomplete right bundle-branch block; inferior as well as anterolateral ST depression. In her specific case, suspect mostly from right ventricular strain. Less likely from LAD ischemia. [id number], Complete Assessment & Plan Assessment & Plan (1) Ascending aortic aneurysm: Code(s): I71.21 - Aneurysm of the ascending aorta, without rupture Qualifiers: Presence of rupture: without rupture Qualified Code(s): I71.21 - Aneurysm of the ascending aorta, without rupture (2) Chest pain: Code(s): R07.9 - Chest pain, unspecified Qualifiers: Chest pain type: other chest pain Qualified Code(s): R07.89 - Other chest pain (3) Abnormal EKG: Code(s): R94.31 - Abnormal electrocardiogram [ECG] [EKG] Plan In the recent echocardiogram, LVEF hyperdynamic at greater than 70%. No reported wall motion abnormalities. Otherwise unremarkable. Ascending aortic size 4.[address] chest from [facility] [place] 2021, ascending aortic size was 4.4 cm with heavy mural calcification. With regard to the dilated aorta itself, no specific management in her case. Pathophysiology discussed. The current size, no indication for intervention. Due to chronic lung disease, highly unlikely that she will ever qualify for surgery even if it enlarges to a massive size in the future. With regard to abnormal EKG with ST depressions, suspect it is all because of the chronic lung disease and right ventricular strain type patterns. Suspect LAD ischemia to be less likely but can not rule it out. Discussed about this with the patient. Considering her chronic lung issues as well as supplemental oxygen use, not a candidate for stress testing. Cardiac catheterization may also be too invasive as she does not have any clear-cut symptoms apart from occasional chest pains. Rational for care discussed. Patient also feels that she would rather not get any procedures and just take medications only, as she feels that the lung disease is going to keep progressing- limiting her quality as well as length of her life. Hence she can continue long-acting nitrates that she already takes. Additionally, take sublingual nitroglycerin as needed. She is on aspirin statins. Risk factor modification as much able. Will try to review old cardiology records from [facility] [place] and a prior EKG. Medications: New nitroglycerin do not exceed 3 doses per episode 0.4 mg sublingual Q5M PRN 30 tabs 5RF chest pain R07.2 - Precordial pain nitroglycerin do not exceed 3 doses per episode 0.4 mg sublingual Q5M PRN 30 tabs 5RF chest pain R07.2 - Precordial pain Coding Level of Care Code New Pt Level 4 (46004) Diagnoses Aneurysm of ascending aorta without rupture I71.21 Presence of rupture: without rupture Other chest pain R07.89 Chest pain type: other chest pain Abnormal EKG R94.31 CPT Codes EKG - CPT: 95553-[id number], Complete ([id number])
== END 2023-01-19 13:59 | disposition home or self-care (01) ==
PROVIDERS: PCP Internal Medicine; Visit Provider Internal Medicine
DX: I71.21 Aneurysm of the ascending aorta, without rupture (principal); R07.89 Other chest pain; R94.31 Abnormal electrocardiogram [ECG] [EKG]
CPT/HCPCS: 93010; 99204

== ENCOUNTER → 2023-01-19 13:12 | Outpatient (BNVA) | payer MEDICARE, OTHER, SELFPAY | PROVIDERS: PCP Internal Medicine; Visit Provider Internal Medicine | DX: R94.31 Abnormal electrocardiogram [ECG] [EKG] (principal); R07.89 Other chest pain; I71.21 Aneurysm of the ascending aorta, without rupture | CPT/HCPCS: 93005 ==

== ENCOUNTER 2023-04-17 13:27 | Outpatient (REF) | payer MEDICARE, OTHER, SELFPAY ==
[2023-04-17 13:39] LABS: MANUAL DIFF FLAG NO
[2023-04-17 13:58] LABS: Basophils Absolute Auto 0.1 X10*3/uL (0.0-0.2); Basophils Percent Auto 0.7 % (0-2); Eosinophils Absolute Auto 0.4 X10*3/uL (0.0-0.4); Hemoglobin 12.1 g/dl (12.0-16.0); Imm Gran Abs Auto 0.05 X10*3/uL (0.00-0.03); Imm Gran Pct Auto 0.5 % (0.0-0.4); Lymphocytes Absolute Auto 2.8 X10*3/uL (1.2-4.9); Mean Corpuscular HGB Conc 31.8 g/dl (31.0-35.0); Mean Corpuscular Hemoglobin 28.3 pg (27.0-33.0); Mean Platelet Volume 10.7 fL (9.4-12.3); Monocytes Absolute Auto 0.8 X10*3/uL (0.1-1.2); Monocytes Percent Auto 7.4 % (2-11); Neutrophils Absolute Auto 6.3 x10*3/uL (2.0-8.3); Neutrophils Percent Auto 60.4 % (45-73); Platelet Count 330 X10*3/uL (160-400); Red Blood Count 4.27 X10*6/uL (4.20-5.50); Red Cell Distribution Width 15.2 % (11.0-16.0); White Blood Count 10.4 X10*3/uL (4.8-10.8)
[2023-04-17 14:31] LABS: Alanine Aminotransferase 19 U/L (0-31); Albumin Level 4.1 g/dL (3.5-5.0); Alkaline Phosphatase 65 U/L (39-117); Anion Gap 14 (12-20); Aspartate Amino Transferase 16 U/L (5-31); Bilirubin Total 0.4 mg/dL (0.0-1.0); Blood Urea Nitrogen 19 mg/dL (9-16); C Reactive Protein 0.41 mg/dL (< or = 0.50); Calcium 9.6 mg/dL (8.4-10.2); Carbon Dioxide 28 mmol/L (22-29); Chloride 101 mmol/L (96-108); Estimated Glomerular Filt Rate > 60; Glucose Random 105 mg/dL (60-115); Sodium 140 mmol/L (135-145); Total Protein 7.4 g/dL (6.5-8.0)
[2023-04-17 14:38] LABS: Erythrocyte Sedimentation Rate 12 MM/HR (0-20)
== END 2023-04-17 13:28 | disposition home or self-care (01) ==
LOC: HO.LAB 13:27
PROVIDERS: PCP Internal Medicine; Visit Provider Student in an Organized Health Care Education/Training Program
DX: M06.9 Rheumatoid arthritis, unspecified (principal)
CPT/HCPCS: 36415; 80053; 85025; 85652; 86140

== ENCOUNTER 2023-04-24 10:41 | Outpatient (AMB) | payer MEDICARE, OTHER, SELFPAY ==
[2023-04-24 10:51] VITALS: BP 100/60; PULSE 96
--- NOTE | 2023-04-24 10:51 | A.OFFVIS_ITS ---
Intake Vital Signs 04/24/23 10:51 Height 5 ft 6 in BMI Reason not done Patient refused/unable BP 100/60 Blood Pressure Location Lt brachial Position Sitting Pulse 96 Intake Visit Reasons: 3 month Intake Note: 3 month follow up Fish Housekeeper Required: No Accompanied by: Self / Same As Patient Allergies pirfenidone Adverse Reaction (Mild, Verified 04/24/23 10:56) Hives Iodinated Contrast Media Adverse Reaction (Unknown, Verified 04/24/23 10:56) Chest Pain Medication List - Last Reconciled 04/24/23 by Ashutosh Valdovinos MD alendronate 70 mg PO QWEEK alprazolam 1 mg PO TID PRN amlodipine 5 mg PO DAILY aspirin 81 mg PO DAILY atorvastatin 40 mg PO DAILY benzonatate 100 mg PO TID PRN calcium carbonate-vitamin D2 600 mg calcium- 200 unit tabs PO DAILY clonidine HCl 0.2 mg PO BID diclofenac sodium 1% 4 grams topical QID fluoxetine 20 mg PO DAILY isosorbide mononitrate ER 30 mg PO DAILY lisinopril-hydrochlorothiazide 20-25 mg 1 tab PO DAILY montelukast 10 mg PO DAILY nitroglycerin 0.4 mg sublingual Q5M PRN omeprazole 40 mg PO BID prednisone 10 mg PO DAILY PRN tocilizumab (Actemra ACTPen) 162 mg (0.9 mL) subcut QWEEK trazodone 50 mg PO BEDTIME PRN umeclidinium 62.5 mcg/actuation (Incruse Ellipta) ea inhalation HPI HPI Comments History of Present Illness Details Feli returns for follow-up. In the past seen regarding dilated aorta on the echocardiogram. Patient herself does not have any known coronary disease. She does occasionally get chest/jaw pain. Can randomly happened. Main issue still chronic pulmonary disease with diagnosis of idiopathic pulmonary fibrosis and she is also on supplemental oxygen. Overall, limited activities mainly from shortness of breath. 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 Subclinical hypothyroidism Depression Lung disease, interstitial Low back pain Hypertension Generalized osteoarthritis Gastroesophageal reflux disease with hiatal hernia Barretts esophagus Atherosclerosis Anxiety Surgical History Hx of colonoscopy Family History Mother Type 2 diabetes mellitus Hypertension Rheumatoid arthritis Hyperlipidemia Renal failure Father Coronary artery disease Brother Hyperlipidemia Hypertension Sister Hyperlipidemia Hypertension Social History Alcohol intake: never Patient Tobacco Use Status: Former Tobacco user Quit Date: 1989 Current occupational status: retired 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 Review of Systems Const Denies weakness ENT Denies dizziness Card Denies chest pain, Denies chest pain with activity, Denies syncope, Denies rapid heart rate, Denies pedal edema, Denies edema, Denies leg edema, Denies lightheadedness, Denies palpitations, Denies dyspnea, Denies dyspnea on exertion and Denies orthopnea Resp Denies cough, Denies dyspnea and Denies dyspnea on exertion GI Denies hematochezia and Denies change in stool character Musc Denies abnormal gait, Denies muscle cramps, Denies muscle weakness, Denies numbness, Denies radiating pain into limb and Denies tingling Neuro Denies Abnormal speech present, Denies abnormal gait, Denies dizziness, Denies syncope, Denies numbness, Denies tingling and Denies weakness Endo Denies palpitations Physical Exam Vital Signs: Last Vital Signs Pulse 96 04/24/23 10:51 BP 100/60 04/24/23 10:51 Const General: comfortable and no acute distress Orientation/consciousness: patient oriented x3 HEENT Other: Unremarkable Head: Yes normal to inspection Neck Neck: Yes normal visual inspection Chest Chest palpation & inspection: normal inspection of the chest Resp Auscultation: crackles Cardio Palpation: normal PMI Heart sounds: S1 normal heart sound present, S2 normal heart sound present, no gallops, no murmurs and no rubs GI Palpation (GI): Soft to palpation Back/Spine/Pelvis Other: unremarkable Skin General skin exam: no rashes or lesions noted Neuro General: patient oriented x3 Speech: No Abnormal speech present Extrem General: Yes normal to inspection Psych Mental Status: mental status grossly normal Assessment & Plan Assessment & Plan (1) Ascending aortic aneurysm: Code(s): I71.21 - Aneurysm of the ascending aorta, without rupture Qualifiers: Presence of rupture: without rupture Qualified Code(s): I71.21 - Aneurysm of the ascending aorta, without rupture (2) Chest pain: Code(s): R07.9 - Chest pain, unspecified Qualifiers: Chest pain type: other chest pain Qualified Code(s): R07.89 - Other chest pain (3) Abnormal EKG: Code(s): R94.31 - Abnormal electrocardiogram [ECG] [EKG] Plan Echocardiogram from 2022- LVEF hyperdynamic at greater than 70%. No reported wall motion abnormalities. Otherwise unremarkable. Ascending aortic size 4.[address] chest from [facility] 2021, ascending aortic size was 4.4 cm with heavy mural calcification. With regard to the ascending aortic size, no specific management in her care. She will not be suitable for any major aortic surgery even if it enlarges mainly due to her advanced lung disease. Specifically discussed this in great detail. She also has an abnormal EKG with ST depressions. It was thought to be from chronic lung disease and right ventricular strain but less likely from LAD ischemia. With regard to the occasional chest/jaw pain, we discussed different options. She is certainly not suitable for stress testing from advanced lung disease. With regard to cardiac catheterization, again will be difficult as she may not be able to lie flat and also on supplemental oxygen. We discussed risks/benefits at great length and per her own preference, we decided to just manage this medically as we had done in the past. Any case, this chest pain/jaw pain is too bothersome, she will immediately contact us. She can continue long-acting nitrates and sublingual nitroglycerin as needed. Aspirin/statins. [facility] cardiology note from 2021 also reviewed and plan was somewhat similar with mainly recommend medical therapy and avoid cardiac catheterization as much able. Coding Level of Care Code Est Pt Level 4 (83755) Diagnoses Aneurysm of ascending aorta without rupture I71.21 Presence of rupture: without rupture Other chest pain R07.89 Chest pain type: other chest pain Abnormal EKG R94.31
== END 2023-04-24 11:21 | disposition home or self-care (01) ==
PROVIDERS: PCP Internal Medicine; Visit Provider Internal Medicine
DX: I71.21 Aneurysm of the ascending aorta, without rupture (principal); R07.89 Other chest pain; R94.31 Abnormal electrocardiogram [ECG] [EKG]
CPT/HCPCS: 99214

== ENCOUNTER → 2023-04-24 10:41 | Outpatient (BNVA) | payer MEDICARE, OTHER, SELFPAY | PROVIDERS: PCP Internal Medicine; Visit Provider Internal Medicine | DX: I71.21 Aneurysm of the ascending aorta, without rupture (principal); R94.31 Abnormal electrocardiogram [ECG] [EKG]; R07.89 Other chest pain | CPT/HCPCS: 99212 ==

== ENCOUNTER 2023-04-25 09:21 | Outpatient (AMB) | payer MEDICARE, OTHER, SELFPAY ==
--- NOTE | 2023-04-25 09:24 | MHC.OFFVIS ---
Intake Vital Signs 04/25/23 09:32 Height 5 ft 6 in BMI Reason not done Patient refused/unable BP 98/60 Pulse 78 Pulse Source Pulse Oximeter Temp 96.4 F L Temp Source Skin Pulse Oximetry (%) 95 Oxygen Delivery Method Room Air Comment Pt states she weighs 224lbs. Intake Visit Reasons: RA Intake Note: Patient last seen 01/18/23 presents today for follow up and test results. Reports increased joint pain, especially with cold weather. 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 Accompanied by: Self / Same As Patient Allergies pirfenidone Adverse Reaction (Mild, Verified 04/25/23 09:35) Hives Iodinated Contrast Media Adverse Reaction (Unknown, Verified 04/25/23 09:35) Chest Pain Medication List - Last Reconciled 04/25/23 by Shaila Kelly MD alendronate 70 mg PO QWEEK alprazolam 1 mg PO TID PRN amlodipine 5 mg PO DAILY aspirin 81 mg PO DAILY atorvastatin 40 mg PO DAILY benzonatate 100 mg PO TID PRN calcium carbonate-vitamin D2 600 mg calcium- 200 unit tabs PO DAILY clonidine HCl 0.2 mg PO BID diclofenac sodium 1% 4 grams topical QID fluoxetine 20 mg PO DAILY isosorbide mononitrate ER 30 mg PO DAILY lisinopril-hydrochlorothiazide 20-25 mg 1 tab PO DAILY loperamide (Anti-Diarrheal (loperamide)) mg PO montelukast 10 mg PO DAILY nintedanib (Ofev) 100 mg PO Q12H nitroglycerin 0.4 mg sublingual Q5M PRN omeprazole 40 mg PO BID prednisone 10 mg PO DAILY PRN tocilizumab (Actemra ACTPen) 162 mg (0.9 mL) subcut QWEEK trazodone 50 mg PO BEDTIME PRN umeclidinium 62.5 mcg/actuation (Incruse Ellipta) ea inhalation HPI HPI Comments History of Present Illness Details 77-year-old female with seronegative rheumatoid arthritis and interstitial lung disease on 4 L of oxygen returns for follow-up. On Actemra weekly and prednisone 5-10 mg as needed for joint pain. She generally uses prednisone about 3 times a month. She stated that over the last 2 weeks she has been having more joint pain especially in her lower back, ankles, knees she took prednisone today. She states that she has been having back pain for years. It radiates to her hips. She does not recall getting any specific treatment related to her back arthritis Compliant with Fosamax. Initial history: This is a 76-year-old female with a past medical history of ILD on 4 L of oxygen who presents for evaluation of multiple joint pains. Patient states she used to follow up with general office associate Dr. Marroquin since her 50s. She states she was told she has osteoarthritis. She mentions that her sister was recently diagnosed with rheumatoid arthritis. 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 States that her shortness of breath have been progressively worsening. Patient mentions that over the last 6 months she has developed worsening joint pain affecting her wrists, knees, especially the ankles, back pain radiating to her hips.. Sometimes associated with swelling. States that the joint pain and stiffness is generally much worse in the morning, morning stiffness improving after at least 1 hour. She was prescribed varying doses of prednisone up to 40 mg daily, currently she is finishing up a prednisone taper. She is currently on 10 mg of prednisone daily. Stated that the prednisone at least gives her a 50% relief. She denies Raynaud's. Denies any skin changes. Mentions that recently she has been having difficulty swallowing liquids. Denies any history of DVT/PE. [facility] Medical History care home systemic steroid user Subclinical hypothyroidism Depression Lung disease, interstitial Low back pain Hypertension Generalized osteoarthritis Gastroesophageal reflux disease with hiatal hernia Barretts esophagus Atherosclerosis Anxiety Surgical History Hx of colonoscopy Family History Mother Type 2 diabetes mellitus Hypertension Rheumatoid arthritis Hyperlipidemia Renal failure Father Coronary artery disease Brother Hyperlipidemia Hypertension Sister Hyperlipidemia Hypertension Social History Alcohol intake: never Patient Tobacco Use Status: Former Tobacco user Quit Date: 1989 Current occupational status: retired Current occupation: [employer] Review of Systems Card Reports dyspnea and Reports dyspnea on exertion Resp Reports dyspnea and Reports dyspnea on exertion Musc Reports back pain, Reports arthralgias, Reports joint swelling and Reports stiffness Neuro Reports no additional complaints Psych Reports abnormal sleep pattern, Reports anxiety and Reports depression Physical Exam Vital Signs: Last Vital Signs Temp 96.4 F L 04/25/23 09:32 Pulse 78 04/25/23 09:32 BP 98/60 04/25/23 09:32 Pulse Ox 95 04/25/23 09:32 Oxygen Delivery Method Room Air 04/25/23 09:32 Const General: cooperative, healthy appearing and comfortable Nutritional Appearance: obese Orientation/consciousness: patient oriented x3 HEENT Other: Mildly dry oral mucosa Head: Yes normocephalic and Yes atraumatic Resp Effort & Inspection: normal respiratory effort and able to speak in complete sentences Auscultation: crackles bilateral at the base and diminished lung sounds bilateral in the lower lung rayo Cardio Rate: regular rate Rhythm: regular rhythm Heart sounds: S1 normal heart sound present and S2 normal heart sound present GI Inspection: No distended Palpation (GI): Soft to palpation and nontender Skin General skin exam: no rashes or lesions noted Neuro General: patient oriented x3 Extrem Other: No synovitis hands wrists bilaterally Bilateral knee crepitus Left knee pain with full flexion Right lateral malleolus swelling and tenderness Normal nailfold capillaroscopy Results Reviewed Results Reviewed: PFTs 2018? TLC 87%? FVC 87%? DLCO 62% PFTs 10/21/2019? TLC 73% FVC 89%? DLCO 52% PFTs 12/2020? TLC 69% FVC 74% DLCO 40% HRCT chest comment per patient's soaking tank worker Dr. Robin Last CT chest was in 12/2020 and this noted subpleural reticulation and traction bronchiectasis, some mild ground-glass changes.? Overall the CT scan did show mild progresses since 2018 and the progression since 2016 Assessment & Plan Assessment & Plan (1) Rheumatoid arthritis: Comment: seroneg dx 06/23 Actemra started 07/24 advanced to weekly 11/2022 Code(s): M06.9 - Rheumatoid arthritis, unspecified Qualifiers: Rheumatoid arthritis location: multiple sites Rheumatoid factor presence: without rheumatoid factor Qualified Code(s): M06.09 - Rheumatoid arthritis without rheumatoid factor, multiple sites Plan: This is a 77-year-old female with seronegative RA& concomitant interstitial lung disease returns for follow-up. On Actemra weekly. Doing well overall except for mild RA flare. Continue Actemra 162 mg weekly. Take prednisone 10 mg daily for 5 days then 5 mg daily for 5 days then go back to her usual dosing schedule (5-10 mg once daily as needed for joint pain). 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 However her FRAX for major osteoporotic fracture is 25.7% and hip fracture is 5.8%. Patient is now only on prednisone 5-10 mg daily as needed. Over the last 3 months but, patient used prednisone 6 6 times Alendronate was started 10/2022. Well tolerated. Continue. Plan to repeat DEXA 10/2024 (3) Lung disease, interstitial: Code(s): J84.9 - Interstitial pulmonary disease, unspecified Plan: Patient now able to tolerate Ofev. Continue to follow-up with pulmonary. 2D echo did not show evidence of pulmonary arterial hypertension (4) Ascending aortic aneurysm: Code(s): I71.21 - Aneurysm of the ascending aorta, without rupture Qualifiers: Presence of rupture: without rupture Qualified Code(s): I71.21 - Aneurysm of the ascending aorta, without rupture Plan: Per cardiology. Patient will not be a candidate for any major intervention (5) Chest pain: Code(s): R07.9 - Chest pain, unspecified Qualifiers: Chest pain type: other chest pain Qualified Code(s): R07.89 - Other chest pain Plan: Evaluated by clinical academic allergist. They recommended against stress testing or cardiac catheterization as patient has advanced lung disease and will not tolerate the procedure (6) Chronic hypokalemia: Code(s): E87.6 - Hypokalemia Plan: Mild hypokalemia, can be related to diarrhea from Ofev. Advised patient to follow-up with her soaking tank worker. Plan I spent 49 minutes reviewing patient's chart, evaluating patient, ordering diagnostic workup, counseling patient and documenting in the chart Orders: Orders Complete Blood Count Auto Diff 3 Months M06.9 - Rheumatoid arthritis, unspecified Comprehensive Met. 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
[2023-04-25 09:32] VITALS: BP 98/60; PULSE 78; TEMP 35.8; O2SAT 95
== END 2023-04-25 10:11 | disposition home or self-care (01) ==
PROVIDERS: PCP Internal Medicine; Visit Provider Student in an Organized Health Care Education/Training Program
DX: M06.09 Rheumatoid arthritis without rheumatoid factor, multiple sites (principal); Z79.52 Long term (current) use of systemic steroids; J84.9 Interstitial pulmonary disease, unspecified; I71.21 Aneurysm of the ascending aorta, without rupture; R07.89 Other chest pain; E87.6 Hypokalemia
CPT/HCPCS: 99215

== ENCOUNTER → 2023-04-25 09:21 | Outpatient (BNVA) | payer MEDICARE, OTHER, SELFPAY | PROVIDERS: PCP Internal Medicine; Visit Provider Student in an Organized Health Care Education/Training Program | DX: M06.09 Rheumatoid arthritis without rheumatoid factor, multiple sites (principal); J98.4 Other disorders of lung; I71.21 Aneurysm of the ascending aorta, without rupture; R07.89 Other chest pain; E87.6 Hypokalemia; Z79.52 Long term (current) use of systemic steroids; Z79.899 Other long term (current) drug therapy | CPT/HCPCS: 99212 ==

== ENCOUNTER 2023-05-05 08:58 | Outpatient (AMB) | payer MEDICARE, OTHER, SELFPAY ==
--- NOTE | 2023-05-05 09:05 | MHC.OFFVIS ---
Intake Vital Signs 05/05/23 09:10 Height 5 ft 6 in Weight 220 lb BMI 35.5 BP 117/62 Blood Pressure Location Rt brachial Position Sitting Pulse 84 Pulse Source Pulse Oximeter Intake Visit Reasons: Other intervertebral disc degen, lumbar region Intake Note: Pain today 10/10. Forensic Science Technician Required: No Accompanied by: Self / Same As Patient Allergies pirfenidone Adverse Reaction (Mild, Verified 05/05/23 09:10) Hives Iodinated Contrast Media Adverse Reaction (Unknown, Verified 05/05/23 09:10) Chest Pain HPI Other intervertebral disc degen, lumbar region HPI Details Patient is a pleasant 77 years old female with prior history of seronegative rheumatoid arthritis, idiopathic pulmonary fibrosis, interstitial lung disease on 4 L of oxygen, knee osteoarthritis and polyarthralgia, presents today for initial evaluation of chronic low back pain. Denies any past or recent trauma, injury or falls. Back pain is constant, starts early in the morning as aching and stiffness and worsens through the day as pulsing and throbbing with intermittent radiation of pain into her lateral hips but not lower extremities. She also have bilateral knee pain in medial and lateral joint lines due to OA. Denies previous spine or knee surgery or injections. Patient is under the care of our [facility] and receives Actemra weekly and prednisone 5-10 mg as needed for joint pain for flare ups which she can use up to 3 times per month. She has tried toical applications, Tylenol, and heat therapy as well as course of physical therapy with continued symptoms. Pain affects her daily functioning, mobility, mood, sleep and quality of life. Denies any fever, abdominal or groin pain, foot drop, bladder or bowel dysfunction or saddle anesthesia. Patient lives alone and receives housekeeping assistance once a week for 2 hours which is insufficient and she is requesting her PCP to increase LICENSED PHYSICAL THERAPIST's weekly hours. 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 Subclinical hypothyroidism Depression Lung disease, interstitial Low back pain Hypertension Generalized osteoarthritis Gastroesophageal reflux disease with hiatal hernia Barretts esophagus Atherosclerosis Anxiety Surgical History Hx of colonoscopy Family History Mother Type 2 diabetes mellitus Hypertension Rheumatoid arthritis Hyperlipidemia Renal failure Father Coronary artery disease Brother Hyperlipidemia Hypertension Sister Hyperlipidemia Hypertension Social History Alcohol intake: never Patient Tobacco Use Status: Former Tobacco user Quit Date: 1989 Substance Use Type: Caffiene Current occupational status: retired 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 Alert and oriented. Mood and affect appropriate. Follows and participates in conversation appropriately. Respiratory effort is unlabored. No cough. Able to transition from sit to stand with assistance of walker. Continous O2 @4L via nasal cannula. Back/Spine/Pelvis Other: Limited lumbar ROM due to pain. Antalgic, slow gait. O2 dependant. Can flex forward to 50-60 degrees and extend to 5-10 degrees before experiencing lumbar pain. Demonstrates 5/5 strength of quadriceps bilaterally as well as flexion/dorsiflexion of bilateral feet against resistance. 2+ pedal pulses bilaterally. Seated straight leg rise with dorsiflexion negative bilaterally. Diminished patellar and achilles reflexes bilaterally. Facet loading test positive bilaterally. Eric sign negative bilaterally. No groin pain with I/E hip rotations. Unable to complete exam due to aggravation of pain. Cervical Spine: cervical ROM normal Thoracic/Lumbar Spine: thoracic and lumbar spine normal to inspection, No Thoracic/lumbar spine scar(s), Lasegue's sign negative, straight leg raise negative bilaterally, pain with thoraco-lumbar ROM, thoraco-lumbar ROM limited, No thoracic spinal tenderness and lumbar spinal tenderness at L4 and at L5 Extrem General: Yes capillary refill normal, Yes no calf tenderness, No clubbing, No cyanosis and Yes edema (nonpitting bilateral ankle) Results Reviewed Results Reviewed: BONE DENSITOMETRY 06/08/22 CLINICAL INDICATION: Long-term (current) use of systemic steroids. FINDINGS: AP SPINE L1-L4: BMD 1.267 g/cm2, Z-score 1.6, T-score 0.7, normal. LEFT FEMUR, NECK: BMD 0.830 g/cm2, Z-score -0.1, T-score -1.5, osteopenia. LEFT FEMUR, TOTAL: BMD 0.968 g/cm2, Z-score 0.9, T-score -0.3, normal. IDENTIFIED RISK FACTORS: Menopause, glucocorticoids (chronic), history of fracture (adult), thiazide. HISTORY OF FRACTURE: Other. MEDICATIONS: Calcium, vitamin D. IMPRESSION: 1. DIAGNOSIS: Osteopenia based on the lowest T-score value of -1.5 in the femoral neck applying World Health Organization criteria. Assessment & Plan Assessment & Plan (1) Lumbar degenerative disc disease: Code(s): M51.36 - Other intervertebral disc degeneration, lumbar region (2) Lumbosacral spondylosis: Code(s): M47.817 - Spondylosis without myelopathy or radiculopathy, lumbosacral region (3) Osteopenia: Code(s): M85.80 - Other specified disorders of bone density and structure, unspecified site (4) Bilateral knee pain: Code(s): M25.561 - Pain in right knee; M25.562 - Pain in left knee Plan Lumbar spine imaging to assess degree of degenerative changes, any subluxation, listhesis, compression fractures or pars defects. For axial low back pain, we discussed diagnostic injections for potential Sprint PNS trial vs lumbar medial branch RFA procedure or therapeutic injections. Tentatively plan for Bilateral Diagnostic L3-L4 DR L5 MBB with local and fluoroscopy. Expectations, risks and benefits were reviewed. Patient is aware she will be contacted to schedule this procedure. Scripts provided for lidocaine patches and Tylenol Arthritis, side effects and precautions reviewed with patient. All questions were answered and the patient is in agreement of plan. Follow-up after xray/injections and sooner as needed. Orders: Orders XR lumbar spine 4V min 05/05/23 M47.817 - Spondylosis without myelopathy or radiculopathy, lumbosacral region, M51.36 - Other intervertebral disc degeneration, lumbar region Medications: New lidocaine 5% 1 patch topical DAILY 30 ea 0RF pain 30 days M47.817 - Spondylosis without myelopathy or radiculopathy, lumbosacral region, M51.36 - Other intervertebral disc degeneration, lumbar region acetaminophen ER (Tylenol Arthritis Pain) 650 mg PO Q8H PRN 90 tabs 5RF pain 30 days M47.817 - Spondylosis without myelopathy or radiculopathy, lumbosacral region, M51.36 - Other intervertebral disc degeneration, lumbar region Coding Level of Care Code New Pt Level 4 (81415) Diagnoses Lumbar degenerative disc disease M51.36 Lumbosacral spondylosis M47.817 Osteopenia M85.80 Bilateral knee pain M25.561; M25.562
[2023-05-05 09:10] VITALS: BP 117/62; PULSE 84; BMI 35.5
== END 2023-05-05 09:57 | disposition home or self-care (01) ==
PROVIDERS: PCP Internal Medicine; Referring Provider Student in an Organized Health Care Education/Training Program; Visit Provider Nurse Practitioner Family
DX: M51.36 Other intervertebral disc degeneration, lumbar region (principal); M47.817 Spondylosis without myelopathy or radiculopathy, lumbosacral region; M85.80 Other specified disorders of bone density and structure, unspecified site; M25.561 Pain in right knee; M25.562 Pain in left knee
CPT/HCPCS: 99204

== ENCOUNTER → 2023-05-05 08:58 | Outpatient (BNVA) | payer MEDICARE, OTHER, SELFPAY | PROVIDERS: PCP Internal Medicine; Referring Provider Student in an Organized Health Care Education/Training Program; Visit Provider Nurse Practitioner Family | DX: M51.36 Other intervertebral disc degeneration, lumbar region (principal); M47.817 Spondylosis without myelopathy or radiculopathy, lumbosacral region; M85.80 Other specified disorders of bone density and structure, unspecified site; M25.561 Pain in right knee; M25.562 Pain in left knee | CPT/HCPCS: 99202 ==

== ENCOUNTER 2023-05-11 10:05 | Outpatient (REF) | payer MEDICARE, OTHER, SELFPAY ==
--- NOTE | ~2023-05-11 | XR_ITS ---
EXAMINATION: XR LUMBOSACRAL SPINE CLINICAL INFORMATION: Reason for Exam M51.36 - Other intervertebral disc degeneration, lumbar region COMPARISON: None TECHNIQUE: 5 views of the lumbar spine FINDINGS: 5 nonrib-bearing lumbar-type vertebral bodies. Vertebral body heights are maintained. Dextroconvex curvature of the lumbar spine. Grade 1 retrolisthesis of T12 on L1 and L1 on L2. No pars defects. Moderate multilevel degenerative disease with loss of disc space height, facet arthropathy and vacuum disc phenomenon. Atherosclerotic calcifications of the abdominal aorta which appears ectatic to 2.8 cm, recommend correlation with dedicated abdominal aortic ultrasound. XR/XR lumbar spine 4V min IMPRESSION: 1. Dextroconvex curvature of the lumbar spine. Grade 1 retrolisthesis of T12 on L1 and L1 on L2. 2. Moderate multilevel degenerative disease with loss of disc space height, facet arthropathy and vacuum disc phenomenon. 3. Atherosclerotic calcifications of the abdominal aorta which appears ectatic to 2.8 cm, recommend correlation with dedicated abdominal aortic ultrasound.
== END 2023-05-11 10:06 | disposition home or self-care (01) ==
LOC: HO.XRAY 10:05
PROVIDERS: PCP Internal Medicine; Visit Provider Nurse Practitioner Family
DX: M47.817 Spondylosis without myelopathy or radiculopathy, lumbosacral region (principal); M51.36 Other intervertebral disc degeneration, lumbar region
CPT/HCPCS: 72110

== ENCOUNTER 2023-06-06 08:37 | Outpatient (REF) | payer MEDICARE, OTHER, SELFPAY ==
--- NOTE | ~2023-06-06 | US_ITS ---
EXAMINATION: US RETROPERITONEAL LIMITED (AORTA) CLINICAL INFORMATION: Atherosclerosis of aorta. Atherosclerotic calcifications of the abdominal aorta which appears ectatic to 2.8 cm per recent lumbar spine x-ray. COMPARISON: X-ray lumbosacral spine 05/11/2023. TECHNIQUE: Cornejo-scale, color Doppler and spectral Doppler evaluation of the abdominal aorta. FINDINGS: There is atherosclerotic disease. The measurements of the aorta in maximum AP and transverse dimensions respectively are as follows: Proximal: 2.2 x 2.7 cm. Mid: 2.5 x 3.2 cm. Distal: 1.9 x 2.0 cm. PSV: 86.1 cm/s. The measurements of the common iliac arteries in maximum AP and TRV dimensions are as follows: Right Common Iliac Artery: 1.0 x 1.2 cm. Left Common Iliac Artery: 1.2 x 1.1 cm. US/US abdominal aortic aneurysm IMPRESSION: No abdominal aortic or iliac artery aneurysm.
== END 2023-06-06 08:38 | disposition home or self-care (01) ==
LOC: HO.US 08:37
PROVIDERS: PCP Internal Medicine; Visit Provider Nurse Practitioner Family
DX: I70.0 Atherosclerosis of aorta (principal)
CPT/HCPCS: 76706

== ENCOUNTER 2023-06-08 06:14 | Outpatient (REF) | payer MEDICARE, OTHER, SELFPAY ==
--- NOTE | ~2023-06-08 | FL_ITS ---
INDICATION: Intraoperative fluoroscopy. FLUOROSCOPY: Fluoroscopy Time: 0.1 minutes Dose/air kerma: 3.56 mGy Images saved: 2 FINDINGS: Multiple intraoperative fluoroscopic images are submitted during bilateral lumbar injection. Correlation with operative report. Evaluation is limited secondary to fluoroscopic technique. IMPRESSION: Intra-operative fluoroscopic imaging provided by radiology during bilateral lumbar injection. Please refer to operative note for further information.
== END 2023-06-08 06:15 | disposition home or self-care (01) ==
LOC: CF 06:14
PROVIDERS: Visit Provider Internal Medicine
DX: M47.817 Spondylosis without myelopathy or radiculopathy, lumbosacral region (principal)
CPT/HCPCS: 64493; 64494; J2795; Q9967

== ENCOUNTER 2023-06-08 08:01 | Outpatient (AMB) | payer MEDICARE, OTHER, SELFPAY ==
[2023-06-08 08:12] VITALS: BP 110/64; PULSE 94; RESP 16; O2SAT 93; BMI 35.5
--- NOTE | 2023-06-08 08:12 | MHC.OFFVIS ---
Intake Vital Signs 06/08/23 08:12 06/08/23 08:47 Height 5 ft 6 in Weight 220 lb BMI 35.5 BP 110/64 102/62 Blood Pressure Location Lt brachial Lt brachial Position Sitting Sitting Respiration 16 Pulse 94 90 Pulse Source Pulse Oximeter Pulse Oximeter Pulse Oximetry (%) 93 94 Oxygen Delivery Method Room Air Room Air Comment Pre-Op Post-Op Intake Visit Reasons: maulik Dx L3-L4-DR-L5 MBB Allergies pirfenidone Adverse Reaction (Mild, Verified 05/05/23 09:10) Hives Iodinated Contrast Media Adverse Reaction (Unknown, Verified 05/05/23 09:10) Chest Pain HPI maulik Dx L3-L4-DR-L5 MBB HPI Details Patient presents for scheduled procedure. Denies any recent cough, cold, infection, fever or other significant changes in medical history since last office visit. 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 Subclinical hypothyroidism Depression Lung disease, interstitial Low back pain Hypertension Generalized osteoarthritis Gastroesophageal reflux disease with hiatal hernia Barretts esophagus Atherosclerosis Anxiety Surgical History Hx of colonoscopy Family History Mother Type 2 diabetes mellitus Hypertension Rheumatoid arthritis Hyperlipidemia Renal failure Father Coronary artery disease Brother Hyperlipidemia Hypertension Sister Hyperlipidemia Hypertension Social History Alcohol intake: never Patient Tobacco Use Status: Former Tobacco user Quit Date: 1989 Substance Use Type: Caffiene Current occupational status: retired 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 The patient was placed in a prone position. The respective lumbosacral area was prepped with chloraprep and draped in sterile fashion. The skin over the target medial branch nerves was anesthetized with 0.5% lidocaine. A 22 gauge 3.5 inch needle was inserted into the target medial branch nerve under fluoroscopic guidance. No paresthesias were elicited with needle placement and aspiration was negative for blood and CSF. Next, 0.2cc of omnipaque 180 was injected to verify positioning. Next [10mg of methylprednisone mixed with] 0.5 ml 0.5% bupivicaine was injected (0.5cc total per level). The identical procedure was performed at the remaining levels. The skin was cleansed and a sterile bandage was applied. Following the procedure the patient's vital signs were stable. The patient tolerated the procedure well and no complications were encountered. Following the procedure the patient's vital signs were stable. The patient was discharged home in good condition with post-procedural instructions. Time Out: Immediately prior to the procedure, the following was verbally confirmed that there is a signed consent form and that the correct patient, planned procedure, site and side are consistent with documentation and that necessary equipment and/or blood products are available prior to the start of the case. Complications: none EBL: <5 cc 56639 - second level, with Fluoroscopy (bilateral) Procedure code (CPT) selection complete Assessment & Plan Assessment & Plan (1) Lumbosacral spondylosis: Code(s): M47.817 - Spondylosis without myelopathy or radiculopathy, lumbosacral region Plan Patient is status post diagnostic L3, L4 medial branch, L5 dorsal ramus blocks. Patient tolerated procedure well and was discharged home in stable condition with discharge instructions. All questions were answered. We will follow-up via telephone or in clinic to assess response to therapy. A follow-up appointment was made during today's visit. Orders: Orders FL guidance in treatment room Today M47.817 - Spondylosis without myelopathy or radiculopathy, lumbosacral region Coding Level of Care Code Procedure Only Diagnoses Lumbosacral spondylosis M47.817 CPT Codes Facet Injection-Lumbar/Sacral - CPT: 10598 - second level, with Fluoroscopy ([id number])
[2023-06-08 08:47] VITALS: BP 102/62; PULSE 90; O2SAT 94
== END 2023-06-08 08:41 | disposition home or self-care (01) ==
LOC: HO.PMCPRC 08:01
PROVIDERS: PCP Internal Medicine; Visit Provider Internal Medicine
DX: M47.817 Spondylosis without myelopathy or radiculopathy, lumbosacral region (principal)
CPT/HCPCS: 64493; 64494

== ENCOUNTER 2023-06-12 08:23 | Outpatient (AMB) | payer MEDICARE, OTHER, SELFPAY ==
--- NOTE | 2023-06-12 08:32 | A.OFFVIS_ITS ---
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 Bowman. Patient reports 100% pain relief for 2 hours and after that her pain returned to 5-6/10 across her lower back and into her sacral areas and left lateral hip. She has tenderness in her both sacroiliac joint areas bilaterally. Patient denies any significant improvement in her functioning or ROM since procedure. We are awaiting [place] [facility] [place] will resubmit this request again today. She reports this was completed within past 2-3 years. Patient continues to experience intermittent unsteadiness with walking and significant pain with forward flexion, bending and prolonged standing or walking. Patient continues to take Tylenol, ice/heat therapy and prednisone 10 mg daily prn for her COPD but also finds partial relief in her joints and lower back. Denies any groin pain, bladder or bowel dysfunction or saddle anesthesia. Past Procedures: 06/08/23: Bilateral Diagnostic L3-L4 DR L5-100% for 2hours, 50% for 20 hours PRIOR: Patient is a pleasant 77 years old female with prior history of seronegative rheumatoid arthritis, idiopathic pulmonary fibrosis, interstitial lung disease on 4 L of oxygen, knee osteoarthritis and polyarthralgia, presents today for initial evaluation of chronic low back pain. Denies any past or recent trauma, injury or falls. Back pain is constant, starts early in the morning as aching and stiffness and worsens through the day as pulsing and throbbing with intermittent radiation of pain into her lateral hips but not lower extremities. She also have bilateral knee pain in medial and lateral joint lines due to OA. Denies previous spine or knee surgery or injections. Patient [place] under the [place] [facility] [place] and receives Actemra weekly and prednisone 5-10 mg as needed for joint pain for flare ups which she can use up to 3 times per month. She has tried toical applications, Tylenol, and heat therapy as well as course of physical therapy with continued symptoms. Pain affects her daily functioning, mobility, mood, sleep and quality of life. Denies any fever, abdominal or groin pain, foot drop, bladder or bowel dysfunction or saddle anesthesia. 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 Location Bilateral lower back, at times will radiate to hips Duration Chronic pain for many years, worsening for past 6 months Characteristics of symptom or complaint Aching, stiffness, heavy, pulsing, throbbing Aggravating or associated factors Any movements or activity, bending, walking, standing Relieving factors Valtrum topical, Tylenol, heating pad Treatment PT- no improvement; O2 dependant PFSH Medical History [facility] systemic steroid user Subclinical hypothyroidism Depression Lung disease, interstitial Low back pain Hypertension Generalized osteoarthritis Gastroesophageal reflux disease with hiatal hernia Barretts esophagus Atherosclerosis Anxiety Surgical History Hx of colonoscopy Family History Mother Type 2 diabetes mellitus Hypertension Rheumatoid arthritis Hyperlipidemia Renal failure Father Coronary artery disease Brother Hyperlipidemia Hypertension Sister Hyperlipidemia Hypertension Social History Alcohol intake: never Patient Tobacco Use Status: Former Tobacco user Quit Date: 1989 Substance Use Type: Caffiene Current occupational status: retired 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 Alert and oriented. Mood and affect appropriate. Follows and participates in conversation appropriately. Respiratory effort is unlabored. No cough. Able to transition from sit to stand with assistance of walker. Continous O2 @4L via nasal cannula. Back/Spine/Pelvis Other: Limited lumbar ROM due to pain. Antalgic, slow gait. O2 dependant. Lumbar flexion and extension with lateral rotation reproduce moderate symptoms. Cervical Spine: cervical ROM normal Thoracic/Lumbar Spine: thoracic and lumbar spine normal to inspection, No Thoracic/lumbar spine scar(s), Lasegue's sign negative, straight leg raise negative bilaterally, pain with thoraco-lumbar ROM, thoraco-lumbar ROM limited, No thoracic spinal tenderness and lumbar spinal tenderness at L4 and at L5 Extrem General: Yes capillary refill normal, Yes no calf tenderness, No clubbing, No cyanosis and Yes edema (nonpitting bilateral ankle) Results Reviewed Results Reviewed: BONE DENSITOMETRY 06/08/22 CLINICAL INDICATION: Long-term (current) use of systemic steroids. FINDINGS: AP SPINE L1-L4: BMD 1.267 g/cm2, Z-score 1.6, T-score 0.7, normal. LEFT FEMUR, NECK: BMD 0.830 g/cm2, Z-score -0.1, T-score -1.5, osteopenia. LEFT FEMUR, TOTAL: BMD 0.968 g/cm2, Z-score 0.9, T-score -0.3, normal. IDENTIFIED RISK FACTORS: Menopause, glucocorticoids (chronic), history of fracture (adult), thiazide. HISTORY OF FRACTURE: Other. MEDICATIONS: Calcium, vitamin D. IMPRESSION: 1. DIAGNOSIS: Osteopenia based on the lowest T-score value of -1.5 in the femoral neck applying World Health Organization criteria. Assessment & Plan Assessment & Plan (1) Lumbar degenerative disc disease: Code(s): M51.36 - Other intervertebral disc degeneration, lumbar region (2) Lumbosacral spondylosis: Code(s): M47.817 - Spondylosis without myelopathy or radiculopathy, lumbosacral region (3) Osteopenia: Code(s): M85.80 - Other specified disorders of bone density and structure, unspecified site (4) Vertebrogenic low back pain: Code(s): M54.51 - Vertebrogenic low back pain Plan Patient status post diagnostic bilateral lumbar medial branch blocks with partial pain relief and no significant function improvement. We will send another medical release [place] [facility] [place] recent [place] spine [place] prior to consideration of therapeutic TIAGO for her discogenic related pain. Continue lidocaine patches and Tylenol Arthritis, ice and heat therapy and activity modifications. All questions were answered and the patient is in agreement of plan. Follow-up as needed. Coding Level of Care Code Est Pt Level 3 (21488) Diagnoses Lumbar degenerative disc disease M51.36 Lumbosacral spondylosis M47.817 Osteopenia M85.80 Vertebrogenic low back pain M54.51
[2023-06-12 08:38] VITALS: BP 110/57; PULSE 85; O2SAT 90; BMI 35.5
== END 2023-06-12 09:04 | disposition home or self-care (01) ==
PROVIDERS: PCP Internal Medicine; Visit Provider Nurse Practitioner Family
DX: M51.36 Other intervertebral disc degeneration, lumbar region (principal); M47.817 Spondylosis without myelopathy or radiculopathy, lumbosacral region; M85.80 Other specified disorders of bone density and structure, unspecified site; M54.51 Vertebrogenic low back pain
CPT/HCPCS: 99213

== ENCOUNTER → 2023-06-12 08:23 | Outpatient (BNVA) | payer MEDICARE, OTHER, SELFPAY | PROVIDERS: PCP Internal Medicine; Visit Provider Nurse Practitioner Family | DX: M51.36 Other intervertebral disc degeneration, lumbar region (principal); M47.817 Spondylosis without myelopathy or radiculopathy, lumbosacral region; M85.80 Other specified disorders of bone density and structure, unspecified site; M54.51 Vertebrogenic low back pain | CPT/HCPCS: 99212 ==

== ENCOUNTER 2023-06-29 11:16 | Outpatient (AMB) | payer MEDICARE, OTHER, SELFPAY ==
[2023-06-29 11:17] VITALS: BMI 35.5
--- NOTE | 2023-06-29 11:17 | MHC.OFFVIS ---
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 She reports significant ongoing low back pain with radicular symptoms to both of her lateral hips and legs with walking or prolonged standing. Patient has been taking prednisone for COPD and Tylenol daily for pain with continued symptoms. Denies any fever, chills, groin pain, bladder or bowel dysfunction or saddle anesthesia. Past Procedures: 06/08/23: Bilateral Diagnostic L3-L4 DR L5-100% for 2 hours, 50% for 20 hours PRIOR: Patient is a pleasant 77 years old female with prior history of seronegative rheumatoid arthritis, idiopathic pulmonary fibrosis, interstitial lung disease on 4 L of oxygen, knee osteoarthritis and polyarthralgia, presents today for initial evaluation of chronic low back pain. Denies any past or recent trauma, injury or falls. Back pain is constant, starts early in the morning as aching and stiffness and worsens through the day as pulsing and throbbing with intermittent radiation of pain into her lateral hips but not lower extremities. She also have bilateral knee pain in medial and lateral joint lines due to OA. Denies previous spine or knee surgery or injections. Patient is under the care of our [facility] services and receives Actemra weekly and prednisone 5-10 mg as needed for joint pain for flare ups which she can use up to 3 times per month. She has tried toical applications, Tylenol, and heat therapy as well as course of physical therapy with continued symptoms. Pain affects her daily functioning, mobility, mood, sleep and quality of life. Denies any fever, abdominal or groin pain, foot drop, bladder or bowel dysfunction or saddle anesthesia. 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 Location Bilateral lower back, at times will radiate to hips Duration Chronic pain for many years, worsening for past 6 months Characteristics of symptom or complaint Aching, stiffness, heavy, pulsing, throbbing Aggravating or associated factors Any movements or activity, bending, walking, standing Relieving factors Valtrum topical, Tylenol, heating pad Treatment PT- no improvement; O2 dependant PFSH Medical History residential systemic steroid user Subclinical hypothyroidism Depression Lung disease, interstitial Low back pain Hypertension Generalized osteoarthritis Gastroesophageal reflux disease with hiatal hernia Barretts esophagus Atherosclerosis Anxiety Surgical History Hx of colonoscopy Family History Mother Type 2 diabetes mellitus Hypertension Rheumatoid arthritis Hyperlipidemia Renal failure Father Coronary artery disease Brother Hyperlipidemia Hypertension Sister Hyperlipidemia Hypertension Social History Alcohol intake: never Patient Tobacco Use Status: Former Tobacco user Quit Date: 1989 Substance Use Type: Caffiene Current occupational status: retired 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 Review of Systems Const All systems reviewed & are unremarkable except as noted in HPI and below ENT Reports Normal hearing present Neuro Reports Normal hearing present and Denies confusion Psych Denies confusion Physical Exam Vital Signs: BMI result Body Mass Index 35.5 Const General: cooperative, alert and awake; No confusion Orientation/consciousness: patient oriented x3 and No confusion Resp Effort & Inspection: able to speak in complete sentences, no audible wheezes and no cough Neuro General: patient oriented x3 and No confusion Cranial nerves: Yes Normal hearing present Cognition (Neuro): normal cognition Psych Mental Status: mental status grossly normal Speech and movement: Clear speech present Affect: normal affect Attitude: cooperative Thought process: Normal thought process present Thought content: Normal thought content present and No Depressive thoughts present Insight: Good insight present (Psych) Judgement: Good judgement present (Psych) Results Reviewed Results Reviewed: MR SPINE LUMBAR without CONTRAST at [facility] on 06/22/23 INDICATION: Low back pain for six months. TECHNIQUE: Unenhanced multiplanar, multisequence MR imaging of the lumbar spine. FINDINGS: Normal lumbar alignment is demonstrated. Vertebral heights are well maintained. Bone marrow signal is within normal limits, and no suspicious osseous lesion is identified. Intraosseous hemangioma noted at T12. Conus medullaris is unremarkable and terminates at L1. Partially imaged sacral perineural cysts. Perineural cysts also noted in the thoracic spine. T2 hyperintense Bosniak cyst within the left kidney. Colonic diverticula without adjacent fat stranding. T10-11: Small circumferential disc bulge mildly indents the ventral thecal sac. No significant spinal canal or neural foraminal stenosis. T11-12: Small circumferential disc bulge mildly indents the ventral thecal sac. No significant spinal canal or neural foraminal stenosis. T12-L1: Small circumferential disc bulge mildly indents the ventral thecal sac. No significant spinal canal stenosis. Mild bilateral facet arthrosis. Moderate left and mild right neural foraminal stenosis. At L1-2 there is a moderate circumferential disc bulge which mildly indents the ventral thecal sac. Mild right and moderate left facet arthrosis no significant spinal canal stenosis. Mild right and severe left neural foraminal stenosis.. At L2-3 there is moderate disc osteophyte complex, which mildly indents the ventral thecal sac. Mild bilateral facet arthrosis. Mild bilateral neural foraminal stenosis. At L3-4 there is a moderate disc osteophyte complex which moderately indents the ventral thecal sac. Moderate bilateral facet arthrosis contributes to mild spinal canal stenosis. Mild narrowing of bilateral subarticular recesses. Severe right and moderate left neural foraminal stenosis.. At L4-5 there is moderate disc osteophyte complex with a left subarticular disc protrusion which mildly impinges the left L5 nerve root in the subarticular zone. Moderate bilateral facet arthrosis. Moderate spinal canal stenosis. Mild bilateral neural foraminal stenosis. At L5-S1 there is moderate circumferential disc bulge. Moderate bilateral facet arthrosis. No significant spinal canal stenosis. Moderate right and mild left neural foraminal stenosis. IMPRESSION: Multilevel degenerative disc, worse at L4-5 with disc osteophyte complex and left subarticular disc protrusion which impinges the left L5 nerve root. Correlate for left L5 radicular symptoms. Moderate spinal canal stenosis at this level. Advanced multilevel neural foraminal stenoses as above. Correlate for reticular symptoms. MM/XR DEXA axial skeleton 06/08/22 IMPRESSION: 1. DIAGNOSIS: Osteopenia based on the lowest T-score value of -1.5 in the femoral neck applying World Health Organization criteria. Assessment & Plan Assessment & Plan (1) Lumbar degenerative disc disease: Code(s): M51.36 - Other intervertebral disc degeneration, lumbar region (2) Lumbosacral spondylosis: Code(s): M47.817 - Spondylosis without myelopathy or radiculopathy, lumbosacral region (3) Osteopenia: Code(s): M85.80 - Other specified disorders of bone density and structure, unspecified site (4) Vertebrogenic low back pain: Code(s): M54.51 - Vertebrogenic low back pain (5) Spinal stenosis of lumbar region with neurogenic claudication: Code(s): M48.062 - Spinal stenosis, lumbar region with neurogenic claudication Plan Lumbar spine MRI results were discussed with patient today and are noted above. Patient had no pain relief with diagnostic lumbar medial branch block injections. She continues with significant low back pain and spinal-stenosis related pain with neurogenic claudication. Patient requests epidural steroid injection for her symptoms. She reports she cannot undergo surgery due to her pulmonary status and Oxygen dependence. Schedule L4-L5 Interlaminal TIAGO with local and fluoroscopy. Expectations, risks and benefits were reviewed. Patient is aware she will be contacted to schedule this procedure. Discussed effects of steroids which increase risk for osteoporotic fractures. She verbalized understanding steroid use risks on her bone quality. Patient has osteopenia and has been taking Calcium with Vitamin D and Fosamax. Continue lidocaine patches and Tylenol Arthritis, patient is aware not to exceed more than 4 g of Tylenol per day. All questions were answered and the patient is in agreement of plan. Follow-up after xray/injections and sooner as needed. I hereby testify that I spent 16 minutes in conversation with this patient as well as with planning and coordinating care for this patient and organizing this note. Telehealth Telehealth Location of provider rendering services: practice address Location of patient: address on file Patient Identification confirmed using: Name, : Yes Telehealth method: voice only Patient verbally consented to treatment: Yes Patient verbally consented to billing insurance company: Yes Patient informed of any privacy concerns related to visit: Yes Minutes spent on Phone/Video with Pt.: 16 Coding Level of Care Code Tele Est Pt Level 4 (11336) Diagnoses Lumbar degenerative disc disease M51.36 Lumbosacral spondylosis M47.817 Osteopenia M85.80 Vertebrogenic low back pain M54.51 Spinal stenosis of lumbar region with neurogenic claudication M48.062
== END 2023-06-29 11:26 | disposition home or self-care (01) ==
LOC: HO.PMC 11:16
PROVIDERS: PCP Internal Medicine; Visit Provider Nurse Practitioner Family
DX: M51.36 Other intervertebral disc degeneration, lumbar region (principal); M47.817 Spondylosis without myelopathy or radiculopathy, lumbosacral region; M85.80 Other specified disorders of bone density and structure, unspecified site; M54.51 Vertebrogenic low back pain; M48.062 Spinal stenosis, lumbar region with neurogenic claudication
CPT/HCPCS: 99442

== ENCOUNTER → 2023-06-29 11:16 | Outpatient (BNVA) | payer MEDICARE, OTHER, SELFPAY | PROVIDERS: PCP Internal Medicine; Visit Provider Nurse Practitioner Family ==

== ENCOUNTER 2023-07-18 11:43 | Outpatient (REF) | payer MEDICARE, OTHER, SELFPAY ==
[2023-07-18 12:01] LABS: MANUAL DIFF FLAG NO
[2023-07-18 12:53] LABS: Basophils Absolute Auto 0.1 X10*3/uL (0.0-0.2); Basophils Percent Auto 0.7 % (0-2); Eosinophils Absolute Auto 0.2 X10*3/uL (0.0-0.4); Eosinophils Percent Auto 1.6 % (0-4); Hematocrit 39.3 % (37.0-47.0); Hemoglobin 12.2 g/dl (12.0-16.0); Imm Gran Abs Auto 0.07 X10*3/uL (0.00-0.03); Imm Gran Pct Auto 0.7 % (0.0-0.4); Lymphocytes Absolute Auto 1.8 X10*3/uL (1.2-4.9); Lymphocytes Percent Auto 17.9 % (20-40); Mean Corpuscular Hemoglobin 27.8 pg (27.0-33.0); Mean Corpuscular Volume 89.5 fL (80.0-98.0); Mean Platelet Volume 10.9 fL (9.4-12.3); Monocytes Absolute Auto 0.6 X10*3/uL (0.1-1.2); Monocytes Percent Auto 6.2 % (2-11); Neutrophils Absolute Auto 7.2 x10*3/uL (2.0-8.3); Neutrophils Percent Auto 72.9 % (45-73); Platelet Count 282 X10*3/uL (160-400); Red Blood Count 4.39 X10*6/uL (4.20-5.50); Red Cell Distribution Width 16.4 % (11.0-16.0); White Blood Count 9.9 X10*3/uL (4.8-10.8)
[2023-07-18 13:47] LABS: Erythrocyte Sedimentation Rate 10 MM/HR (0-20)
[2023-07-18 14:17] LABS: Alanine Aminotransferase 17 U/L (0-31); Albumin Level 4.3 g/dL (3.5-5.0); Alkaline Phosphatase 60 U/L (39-117); Anion Gap 13 (12-20); Aspartate Amino Transferase 15 U/L (5-31); Bilirubin Total 0.6 mg/dL (0.0-1.0); Blood Urea Nitrogen 13 mg/dL (9-16); C Reactive Protein 1.01 mg/dL (< or = 0.50); Calcium 9.4 mg/dL (8.4-10.2); Carbon Dioxide 26 mmol/L (22-29); Chloride 100 mmol/L (96-108); Estimated Glomerular Filt Rate > 60; Glucose Random 93 mg/dL (60-115); Potassium 3.6 mmol/L (3.3-5.1); Sodium 135 mmol/L (135-145); Total Protein 7.6 g/dL (6.5-8.0)
== END 2023-07-18 11:44 | disposition home or self-care (01) ==
LOC: HO.LAB 11:43
PROVIDERS: Visit Provider Student in an Organized Health Care Education/Training Program
DX: M06.9 Rheumatoid arthritis, unspecified (principal)
CPT/HCPCS: 36415; 80053; 85025; 85652; 86140

== ENCOUNTER 2023-07-25 11:14 | Outpatient (AMB) | payer MEDICARE, OTHER, SELFPAY ==
[2023-07-25 11:15] VITALS: BP 122/70; PULSE 82; O2SAT 92
--- NOTE | 2023-07-25 11:15 | MHC.OFFVIS ---
Vital Signs 07/25/23 11:15 Height 5 ft 6 in BP 122/70 Blood Pressure Location Rt brachial Position Sitting Pulse 82 Pulse Source Pulse Oximeter Pulse Oximetry (%) 92 Oxygen Delivery Method Nasal Cannula Comment Pt states 221lbs Intake Visit Reasons: RA Intake Note: Patient last seen 04/25/23 presents today for follow up and test results. States she is not doing good, lots of back pain. Lumbar injection scheduled this week with pain mgmt [employer] Required: No Information Interpreted: clinical only Accompanied by: Self / Same As Patient Allergies pirfenidone Adverse Reaction (Mild, Verified 07/25/23 11:24) Hives Iodinated Contrast Media Adverse Reaction (Unknown, Verified 07/25/23 11:24) Chest Pain Medication List - Last Reconciled 07/25/23 by Shaila Kelly MD acetaminophen ER (Tylenol Arthritis Pain) 650 mg PO Q8H PRN 30 days alendronate 70 mg PO QWEEK alprazolam 1 mg PO TID PRN amlodipine 5 mg PO DAILY aspirin 81 mg PO DAILY atorvastatin 40 mg PO DAILY benzonatate 100 mg PO TID PRN calcium carbonate-vitamin D2 600 mg calcium- 200 unit tabs PO DAILY clonidine HCl 0.2 mg PO BID diclofenac sodium 1% 4 grams topical QID fluoxetine 20 mg PO DAILY isosorbide mononitrate ER 30 mg PO DAILY lidocaine 5% 1 patch topical DAILY 30 days lisinopril-hydrochlorothiazide 20-25 mg 1 tab PO DAILY loperamide (Anti-Diarrheal (loperamide)) mg PO loperamide mg PO montelukast 10 mg PO DAILY nintedanib (Ofev) 100 mg PO Q12H nitroglycerin 0.4 mg sublingual Q5M PRN omeprazole 40 mg PO BID prednisone 10 mg PO DAILY PRN tocilizumab (Actemra ACTPen) 162 mg (0.9 mL) subcut QWEEK trazodone 50 mg PO BEDTIME PRN umeclidinium 62.5 mcg/actuation (Incruse Ellipta) ea inhalation HPI Comments Details: 77-year-old female with seronegative rheumatoid arthritis and interstitial lung disease on 5 L of oxygen returns for follow-up. On Actemra weekly and prednisone 10 mg daily. She states that she has been having progressively worsening lower back pain recently over the last 3-4 weeks. He was evaluated by pain management and had a therapeutic trial injection with anesthetic which did provide 100% relief but the pain came back in a few hours. She is scheduled for a therapeutic steroid injection this . She has been taking the prednisone 10 mg daily over the last few weeks and she feels it helps with her spine. She continues to take the Ofev and Fosamax. That the joint pain and swelling in her hands, knees and ankles has been well controlled. States that recently her waste water or water plant operator increased her O2 to 5 L. she will be going back for a walk test Initial history: This is a 76-year-old female with a past medical history of ILD on 4 L of oxygen who presents for evaluation of multiple joint pains. Patient states she used to follow up with case reviewer Dr. Marroquin since her 50s. She states she was told she has osteoarthritis. She mentions that her sister was recently diagnosed with rheumatoid arthritis. 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 States that her shortness of breath have been progressively worsening. Patient mentions that over the last 6 months she has developed worsening joint pain affecting her wrists, knees, especially the ankles, back pain radiating to her hips.. Sometimes associated with swelling. States that the joint pain and stiffness is generally much worse in the morning, morning stiffness improving after at least 1 hour. She was prescribed varying doses of prednisone up to 40 mg daily, currently she is finishing up a prednisone taper. She is currently on 10 mg of prednisone daily. Stated that the prednisone at least gives her a 50% relief. She denies Raynaud's. Denies any skin changes. Mentions that recently she has been having difficulty swallowing liquids. Denies any history of DVT/PE. [facility] Medical History senior care systemic steroid user Subclinical hypothyroidism Depression Lung disease, interstitial Low back pain Hypertension Generalized osteoarthritis Gastroesophageal reflux disease with hiatal hernia Barretts esophagus Atherosclerosis Anxiety Surgical History Hx of colonoscopy Family History Mother Type 2 diabetes mellitus Hypertension Rheumatoid arthritis Hyperlipidemia Renal failure Father Coronary artery disease Brother Hyperlipidemia Hypertension Sister Hyperlipidemia Hypertension Social History Alcohol intake: never Patient Tobacco Use Status: Former Tobacco user Quit Date: 1989 Substance Use Type: Caffiene Current occupational status: retired 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[employer] Review of Systems Card Reports dyspnea and Reports dyspnea on exertion Resp Reports dyspnea and Reports dyspnea on exertion Musc Reports back pain, Reports arthralgias, Denies joint swelling and Reports radiating pain into limb Neuro Reports no additional complaints Psych Reports abnormal sleep pattern, Reports anxiety and Reports depression Physical Exam Vital Signs: Last Vital Signs Pulse 82 07/25/23 11:15 BP 122/70 07/25/23 11:15 Pulse Ox 92 07/25/23 11:15 Oxygen Delivery Method Nasal Cannula 07/25/23 11:15 Const General: cooperative, healthy appearing and comfortable Nutritional Appearance: obese Orientation/consciousness: patient oriented x3 HEENT Head: Yes normocephalic and Yes atraumatic Resp Effort & Inspection: normal respiratory effort and able to speak in complete sentences Auscultation: crackles bilateral at the base and diminished lung sounds bilateral in the lower lung rayo Cardio Rate: regular rate Rhythm: regular rhythm Heart sounds: S1 normal heart sound present and S2 normal heart sound present GI Inspection: No distended Palpation (GI): Soft to palpation and nontender Skin General skin exam: no rashes or lesions noted Neuro General: patient oriented x3 Extrem Other: No synovitis hands wrists bilaterally Bilateral knee crepitus No ankle synovitis today Normal nailfold capillaroscopy Results Reviewed Results Reviewed: PFTs 2018? TLC 87%? FVC 87%? DLCO 62% PFTs 10/21/2019? TLC 73% FVC 89%? DLCO 52% PFTs 12/2020? TLC 69% FVC 74% DLCO 40% HRCT chest comment per patient's waste water or water plant operator Dr. Garcia Last CT chest was in 12/2020 and this noted subpleural reticulation and traction bronchiectasis, some mild ground-glass changes.? Overall the CT scan did show mild progresses since 2018 and the progression since 2016 Assessment & Plan Assessment & Plan (1) Rheumatoid arthritis: Comment: seroneg dx 06/23 Actemra started 07/24 advanced to weekly 11/2022 On prednisone intermittently Code(s): M06.9 - Rheumatoid arthritis, unspecified Category: Medical Qualifiers: Rheumatoid arthritis location: multiple sites Rheumatoid factor presence: without rheumatoid factor Qualified Code(s): M06.09 - Rheumatoid arthritis without rheumatoid factor, multiple sites Plan: This is a 77-year-old female with seronegative RA& concomitant interstitial lung disease returns for follow-up. On Actemra weekly. She has been taking prednisone 10 mg daily for back pain. There is no active synovitis on exam. Continue Actemra 162 mg weekly. 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 However her FRAX for major osteoporotic fracture is 25.7% and hip fracture is 5.8%. Patient is on prednisone 10 mg daily last few weeks due to degenerative disc disease of her spine advised patient to start to taper it as soon as she gets the steroid injections Alendronate was started 10/2022. Well tolerated. Continue. Plan to repeat DEXA 10/2024 (3) Lung disease, interstitial: Code(s): J84.9 - Interstitial pulmonary disease, unspecified Category: Medical Plan: Patient now able to tolerate Ofev. She states that Recently Dr. Garcia, increased her oxygen to 5 L Continue to follow-up with pulmonary. 2D echo did not show evidence of pulmonary arterial hypertension (4) Ascending aortic aneurysm: Code(s): I71.21 - Aneurysm of the ascending aorta, without rupture Category: Medical Qualifiers: Presence of rupture: without rupture Qualified Code(s): I71.21 - Aneurysm of the ascending aorta, without rupture Plan: Per cardiology. 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
== END 2023-07-25 11:48 | disposition home or self-care (01) ==
PROVIDERS: PCP Internal Medicine; Visit Provider Student in an Organized Health Care Education/Training Program
DX: M06.09 Rheumatoid arthritis without rheumatoid factor, multiple sites (principal); Z79.52 Long term (current) use of systemic steroids; J84.9 Interstitial pulmonary disease, unspecified; I71.21 Aneurysm of the ascending aorta, without rupture; E87.6 Hypokalemia
CPT/HCPCS: 99215

== ENCOUNTER → 2023-07-25 11:14 | Outpatient (BNVA) | payer MEDICARE, OTHER, SELFPAY | PROVIDERS: PCP Internal Medicine; Visit Provider Student in an Organized Health Care Education/Training Program | DX: M06.09 Rheumatoid arthritis without rheumatoid factor, multiple sites (principal); J84.9 Interstitial pulmonary disease, unspecified; I71.21 Aneurysm of the ascending aorta, without rupture; E87.6 Hypokalemia; Z79.52 Long term (current) use of systemic steroids; Z99.81 Dependence on supplemental oxygen | CPT/HCPCS: 99212 ==

== ENCOUNTER 2023-07-27 06:09 | Outpatient (REF) | payer MEDICARE, OTHER, SELFPAY ==
--- NOTE | ~2023-07-27 | FL_ITS ---
EXAMINATION: XR FLUOROSCOPY WITH IMAGES CLINICAL INFORMATION: Vertebrogenic low back pain. COMPARISON: None available. TECHNIQUE: Fluoroscopy Supervised By: Dr. Bowman. Fluoroscopy Time: 0.1 min. Cumulative Dose: 2.35 mGy. DAP: 0.196 Gy-cm2. Images: 2. FINDINGS: Fluoroscopic imaging provided for procedure supervised by Dr. Bowman. Needle/wire at the level of the lumbar spine. Please refer to operative report for more detailed evaluation. FL/FL guidance in treatment room IMPRESSION: Fluoroscopic imaging provided for procedure. Please refer to operative report for more detailed evaluation.
== END 2023-07-27 06:10 | disposition home or self-care (01) ==
LOC: CF 06:09
PROVIDERS: Visit Provider Internal Medicine
DX: M54.51 Vertebrogenic low back pain (principal); M54.16 Radiculopathy, lumbar region
CPT/HCPCS: 62323; J3301; Q9967

== ENCOUNTER 2023-07-27 07:57 | Outpatient (AMB) | payer MEDICARE, OTHER, SELFPAY ==
[2023-07-27 08:04] VITALS: BP 118/60; PULSE 75; RESP 14; O2SAT 92; BMI 35.7
--- NOTE | 2023-07-27 08:04 | A.OFFVIS_ITS ---
Vital Signs 07/27/23 08:04 07/27/23 09:07 Height 5 ft 6 in 5 ft 6 in Weight 221 lb 221 lb BMI 35.7 35.7 BP 118/60 104/66 Blood Pressure Location Lt brachial Lt brachial Position Sitting Sitting Respiration 14 14 Pulse 75 68 Pulse Source Pulse Oximeter Pulse Oximeter Pulse Oximetry (%) 92 98 Oxygen Delivery Method Nasal Cannula Nasal Cannula Oxygen Flow Rate 4 4 Comment Pre-op post-op Intake Visit Reasons: L4-L5 interlaminar TIAGO [address] [address] Service Required: No Accompanied by: Self / Same As Patient Allergies pirfenidone Adverse Reaction (Mild, Verified 07/27/23 09:08) Hives Iodinated Contrast Media Adverse Reaction (Unknown, Verified 07/27/23 09:08) Chest Pain HPI HPI L4-L5 interlaminar TIAGO: Details: Patient presents for scheduled procedure. Denies any recent cough, cold, infection, fever or other significant changes in medical history since last office visit. PFS Medical History care home systemic steroid user Subclinical hypothyroidism Depression Lung disease, interstitial Low back pain Hypertension Generalized osteoarthritis Gastroesophageal reflux disease with hiatal hernia Barretts esophagus Atherosclerosis Anxiety Surgical History Hx of colonoscopy Family History Mother Type 2 diabetes mellitus Hypertension Rheumatoid arthritis Hyperlipidemia Renal failure Father Coronary artery disease Brother Hyperlipidemia Hypertension Sister Hyperlipidemia Hypertension Social History Alcohol intake: never Patient Tobacco Use Status: Former Tobacco user Quit Date: 1989 Substance Use Type: Caffiene Current occupational status: retired 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 Standard monitors were applied. The patient was placed in the prone position. The lumbar area was widely prepped with chloraprep and draped in sterile fashion. Fluoroscopic guidance was used to identify the desired interlaminar space and for needle placement. Subcutaneous 0.5% lidocaine was used to anesthetize the skin overlying the target. A 20-gauge Araujo needle was advanced to the epidural space using loss of resistance to contrast technique under fluoroscopic AP and contralateral oblique views. There was no evidence of heme or CSF and no paresthesias were elicited with needle placement. Confirmation of epidural needle placement was performed with 1cc of omnipaque 180. Next 3 ml 0.5% lidocaine mixed with 80 mg methylprednisolone was administered epidurally with no pain elicited on injection. The needle tract tubing was then cleared with 1 ml of 0.5% lidocaine. The needle was removed, skin cleansed and a sterile bandage was applied. The patient tolerated the procedure well and no complications were encountered. Following the procedure the patient's vital signs were stable. The patient was discharged home in good condition with post-procedural instructions. Time Out: Immediately prior to the procedure, the following was verbally confirmed that there is a signed consent form and that the correct patient, planned procedure, site and side are consistent with documentation and that necessary equipment and/or blood products are available prior to the start of the case. Complications: none EBL: <5 cc Coding 08714 - Caudal/Lumbar Epidural/Interlaminar with fluoroscopy Procedure code (CPT) selection complete Assessment & Plan Assessment & Plan (1) Lumbar radiculopathy: Code(s): M54.16 - Radiculopathy, lumbar region Category: Medical Plan Patient is status post a left parasagittal L4-5 interlaminar TIAGO. Patient tolerated procedure well and was discharged home in stable condition with discharge instructions. All questions were answered. We will follow-up via telephone or in clinic to assess response to therapy. A follow-up appointment was made during today's visit. Orders: Orders FL guidance in treatment room Today M54.51 - Vertebrogenic low back pain Coding Level of Care Code Procedure Only Diagnoses Lumbar radiculopathy M54.16 CPT Codes Coding - Joint 11: 68901 - Caudal/Lumbar Epidural/Interlaminar with fluoroscopy ([id number])
[2023-07-27 09:07] VITALS: BP 104/66; PULSE 68; RESP 14; O2SAT 98; BMI 35.7
== END 2023-07-27 09:03 | disposition home or self-care (01) ==
LOC: HO.PMCPRC 07:57
PROVIDERS: PCP Internal Medicine; Visit Provider Internal Medicine
DX: M54.16 Radiculopathy, lumbar region (principal)
CPT/HCPCS: 62323

== ENCOUNTER 2023-08-25 08:16 | Outpatient (AMB) | payer MEDICARE, OTHER, SELFPAY ==
[2023-08-25 09:00] VITALS: PULSE 81; RESP 14; O2SAT 94; BMI 35.8
--- NOTE | 2023-08-25 09:00 | MHC.OFFVIS ---
Vital Signs 08/25/23 09:00 Height 5 ft 6 in Weight 222 lb BMI 35.8 Respiration 14 Pulse 81 Pulse Source Pulse Oximeter Pulse Oximetry (%) 94 Oxygen Delivery Method Nasal Cannula Intake Visit Reasons: s/p L4-L5 interlaminar TIAGO Allergies pirfenidone Adverse Reaction (Mild, Verified 08/25/23 09:02) Hives Iodinated Contrast Media Adverse Reaction (Unknown, Verified 08/25/23 09:02) Chest Pain Medication List - Last Reconciled 08/25/23 by Archana Hernandez LPN acetaminophen ER (Tylenol Arthritis Pain) 650 mg PO Q8H PRN 30 days alendronate 70 mg PO QWEEK alprazolam 1 mg PO TID PRN amlodipine 5 mg PO DAILY aspirin 81 mg PO DAILY atorvastatin 40 mg PO DAILY benzonatate 100 mg PO TID PRN calcium carbonate-vitamin D2 600 mg calcium- 200 unit tabs PO DAILY clonidine HCl 0.2 mg PO BID diclofenac sodium 1% 4 grams topical QID fluoxetine 20 mg PO DAILY isosorbide mononitrate ER 30 mg PO DAILY lidocaine 5% 1 patch topical DAILY 30 days lisinopril-hydrochlorothiazide 20-25 mg 1 tab PO DAILY loperamide (Anti-Diarrheal (loperamide)) mg PO loperamide mg PO montelukast 10 mg PO DAILY nintedanib (Ofev) 100 mg PO Q12H nitroglycerin 0.4 mg sublingual Q5M PRN omeprazole 40 mg PO BID prednisone 10 mg PO DAILY PRN tocilizumab (Actemra ACTPen) 162 mg (0.9 mL) subcut QWEEK trazodone 50 mg PO BEDTIME PRN umeclidinium 62.5 mcg/actuation (Incruse Ellipta) ea inhalation HPI HPI s/p L4-L5 interlaminar TIAGO: Details: 77-year-old female who presents today to the office for a status post L4-L5 interlaminar TIAGO. The patient reports 50% relief following the procedure. While her symptoms have improved significantly, she continues to have debilitating residual symptoms. She reports low back pain (L>R). She has been waking up in the morning with back pain. She describes her pain as a real, sharp pain ?like a knife? going through her back. She tries to move around and get up. 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 She has to sit down two or three times before she finishes a meal. She also walks short distances. She has to rest after walking some distance. She is using a walker. She has been using Tylenol with minimal benefit. She has been using both hot and cold compression. She lives alone. Her daughter studies at a nearby college and can come for her care as needed. Past procedures 07/27/23: Interlaminar epidural steroid injection, L4/5, Left parasaggital: 50% relief. 06/08/23: Bilateral Diagnostic L3-L4 DR L5-100% for 2 hours, 50% for 20 hours PFSH Medical History care home systemic steroid user Subclinical hypothyroidism Depression Lung disease, interstitial Low back pain Hypertension Generalized osteoarthritis Gastroesophageal reflux disease with hiatal hernia Barretts esophagus Atherosclerosis Anxiety Surgical History Hx of colonoscopy Family History Mother Type 2 diabetes mellitus Hypertension Rheumatoid arthritis Hyperlipidemia Renal failure Father Coronary artery disease Brother Hyperlipidemia Hypertension Sister Hyperlipidemia Hypertension Social History Alcohol intake: never Patient Tobacco Use Status: Former Tobacco user Quit Date: 1989 Substance Use Type: Caffiene Current occupational status: retired 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 Alert and oriented. Mood and affect appropriate. Follows and participates in conversation appropriately. Respiratory effort is unlabored. Able to transition from sit to stand unassisted. Ambulates with bilaterally normal heel strike and toe off. Unable to perfor lumbar ROM due to pain. Results Reviewed Results Reviewed: No imaging is available for review. Assessment & Plan Assessment & Plan (1) Intractable low back pain: Code(s): M54.59 - Other low back pain Category: Medical (2) Lumbar degenerative disc disease: Code(s): M51.36 - Other intervertebral disc degeneration, lumbar region Category: Medical Plan Discussed the details of the trial of left L3 medial branch simulation for intractable low back pain that is severely limiting her activities of daily living and causing debilitating symptoms. We will request insurance authorization and proceed once we get approval. Discussed the risks and benefits of the procedure with the patient in detail. All questions were answered. The patient is on board with the plan. Justification for interventional therapy: ? Patient with average pain > 6/10 ? Patient has exhausted conservative therapy ? Patient unable to tolerate physical therapy due to pain . Patient has a good understanding of their pain condition and has appropriate mental and social support Scribed for Dr. Bowman by Haresh Doll, medical legal investigator, on 08/25/2023. I, Dr. Bowman, have personally reviewed and agree with the information entered by the scribe. Coding Level of Care Code Est Pt Level 4 (48007) Diagnoses Intractable low back pain M54.59 Lumbar degenerative disc disease M51.36
== END 2023-08-25 09:25 | disposition home or self-care (01) ==
PROVIDERS: PCP Internal Medicine; Visit Provider Internal Medicine
DX: M54.59 Other low back pain (principal); M51.36 Other intervertebral disc degeneration, lumbar region
CPT/HCPCS: 99214

== ENCOUNTER → 2023-08-25 08:16 | Outpatient (BNVA) | payer MEDICARE, OTHER, SELFPAY | PROVIDERS: PCP Internal Medicine; Visit Provider Internal Medicine | DX: M54.59 Other low back pain (principal); M51.36 Other intervertebral disc degeneration, lumbar region | CPT/HCPCS: 99212 ==

== ENCOUNTER 2023-09-14 06:09 | Outpatient (REF) | payer MEDICARE, OTHER, SELFPAY ==
--- NOTE | ~2023-09-14 | FL_ITS ---
EXAMINATION: XR FLUOROSCOPY WITH IMAGES CLINICAL INFORMATION: Lumbar radiculopathy. COMPARISON: None available. TECHNIQUE: Fluoroscopy Supervised By: Dr. Tony Bowman. Fluoroscopy Time: 0.1 minute. Cumulative Dose: 2.03 mGy. DAP: 0.0180 Gycm2. Images: 2. FINDINGS: Intraoperative fluoroscopy and spot films were performed during a procedure in the OR. Thin curvilinear structure is seen with its tip ending just below a left-sided pedicle. Exact level is difficult to ascertain because of coning of the radiographs. Please correlate with Dr. Tony Bowman's report for complete details. FL/FL guidance in treatment room IMPRESSION: Intraoperative fluoroscopy and spot films were obtained. Please see Dr. Tony Bowman's report for complete details.
== END 2023-09-14 06:10 | disposition home or self-care (01) ==
LOC: CF 06:09
PROVIDERS: Visit Provider Internal Medicine
DX: M47.817 Spondylosis without myelopathy or radiculopathy, lumbosacral region (principal); M54.59 Other low back pain
CPT/HCPCS: 64555; C1778

== ENCOUNTER 2023-09-14 08:15 | Outpatient (AMB) | payer MEDICARE, OTHER, SELFPAY ==
--- NOTE | 2023-09-14 08:18 | A.OFFVIS_ITS ---
Vital Signs 09/14/23 09:12 09/14/23 09:12 Height 5 ft 6 in Weight 222 lb BMI 35.8 BP 126/68 130/74 Blood Pressure Location Lt brachial Lt brachial Position Sitting Sitting Respiration 18 18 Pulse 83 80 Pulse Source Pulse Oximeter Pulse Oximeter Pulse Oximetry (%) 97 94 Oxygen Delivery Method Room Air Room Air Comment Pre-Op Post-Op Intake Visit Reasons: Left L3 MB Sprint Allergies pirfenidone Adverse Reaction (Mild, Verified 08/25/23 09:02) Hives Iodinated Contrast Media Adverse Reaction (Unknown, Verified 08/25/23 09:02) Chest Pain HPI HPI Left L3 MB Sprint: Details: Patient presents for scheduled procedure. Denies any recent cough, cold, infection, fever or other significant changes in medical history since last office visit. [facility] Medical History long-term systemic steroid user Subclinical hypothyroidism Depression Lung disease, interstitial Low back pain Hypertension Generalized osteoarthritis Gastroesophageal reflux disease with hiatal hernia Barretts esophagus Atherosclerosis Anxiety Surgical History Hx of colonoscopy Family History Mother Type 2 diabetes mellitus Hypertension Rheumatoid arthritis Hyperlipidemia Renal failure Father Coronary artery disease Brother Hyperlipidemia Hypertension Sister Hyperlipidemia Hypertension Social History Alcohol intake: never Patient Tobacco Use Status: Former Tobacco user Substance Use Type: Caffiene Current occupational status: retired 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 After the risks, benefits and alternatives were discussed with the patient and informed consent was obtained, patient was placed in the prone position and padded to foster comfort. The skin overlying the lumbosacral spine was prepped and draped in sterile fashion. Fluoroscopy was used to identify the spinous process and lamina in the center of the patient?s region of pain. After identifying and marking the intended target along the course of the medial branch nerve, the skin around the planned entry point and the subcutaneous tissues were injected with lidocaine 1%. An introducer needle and stimulating probe were assembled, inserted and advanced along the intended course of the medial branch nerve as it traverses the lamina medial and inferior to the zygapophyseal joint, taking care to maintain the proper depth of insertion as the introducer is advanced under fluoroscopic guidance. The introducer needle was delivered to a location in proximity to the nerve. Multiple stimulation parameters were used to deliver stimulation to the target medial branch nerve in concert with stimulating at multiple positions around the nerve. Nerve target acquisition was confirmed noting generation of paresthesias in the paravertebral regions corresponding to the level being stimulated. Various electrical parameter combinations were tested, and the lead location was adjusted (physically relocated) until the patient indicated paresthesia/muscle tension overlapping the distribution of the patient?s typical region of pain. The stimulating probe was removed from the introducer and a percutaneous lead was guided through the needle and delivered to a location in similar proximity to the nerve. Final location was verified with electrical stimulation and documented with fluoroscopy. The introducer needle was removed, and the exposed end of the percutaneous lead was attached to an external stimulator unit. Various electrical parameter combinations were again tested until the patient indicated paresthesia or muscle tension overlapping the distribution of the patient?s typical region of pain. After confirming that lead impedance was in the normal range, the external unit was detached, the needle was removed, and the lead was anchored at the skin. The lead was threaded into the connector block and electrical continuity and desired patient response was confirmed. The connector block was attached to the external stimulator unit. The site was covered with a sterile occlusive dressing. The patient was observed for stability of vital signs and comfort. Sprint PNS Device: Sprint PNS Device [id number] Percutaneous Peripheral Neuroelectrode Procedure: 64559 - Percutaneous Peripheral Neuroelectrode Procedure code (CPT) selection complete Office Meds lidocaine (PF) 50 mg/5 mL (1 %) injection syringe Performing Provider: Halle Young APRN, HYACINTH Performing Location: [facility] [place] [facility] Administered by: Archana Hernandez LPN on 09/14/23 08:56 Dose Route Admin Location Dispensed Lot Number Expiration Date [facility] Topographic Computator 5 mL subcut 5 mL Assessment & Plan Assessment & Plan (1) Intractable low back pain: Code(s): M54.59 - Other low back pain Category: Medical (2) Lumbosacral spondylosis: Code(s): M47.817 - Spondylosis without myelopathy or radiculopathy, lumbosacral region Category: Medical Plan Patient is status post left L3 medial branch temporary nerve stimulator placement. Patient tolerated procedure well and was discharged home in stable condition with discharge instructions. All questions were answered. We will follow-up via telephone or in clinic to assess response to therapy. A follow-up appointment was made during today's visit. Orders: Orders AMB Sprint PNS Today M47.817 - Spondylosis without myelopathy or radiculopathy, lumbosacral region FL guidance in treatment room Today M47.817 - Spondylosis without myelopathy or radiculopathy, lumbosacral region Coding Level of Care Code Procedure Only Diagnoses Intractable low back pain M54.59 Lumbosacral spondylosis M47.817 CPT Codes Sprint PNS - Sprint PNS Device: Sprint PNS Device ([id number]) Sprint PNS - SPRINT: 20873 - Percutaneous Peripheral Neuroelectrode ([id number]) Implantable Device Implantable Device Implantable Devices Qty Topographic Computator Implant Date Expiration Date Analgesic PENS system 1 [employer] 09/14/23 09/30/24
[2023-09-14 09:12] VITALS: BP 126/68; BP 130/74; PULSE 80; PULSE 83; RESP 18; O2SAT 94; O2SAT 97; BMI 35.8
== END 2023-09-14 09:30 | disposition home or self-care (01) ==
LOC: HO.PMCPRC 08:15
PROVIDERS: PCP Internal Medicine; Visit Provider Internal Medicine
DX: M47.817 Spondylosis without myelopathy or radiculopathy, lumbosacral region (principal); M54.59 Other low back pain
CPT/HCPCS: 64555

== ENCOUNTER 2023-09-21 08:59 | Outpatient (AMB) | payer MEDICARE, OTHER, SELFPAY ==
--- NOTE | 2023-09-21 09:00 | MHC.OFFVIS ---
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 Bowman. Patient reports 50-60% pain relief since procedure with improvement in her daily activities and functioning, range of motion and sleep. She reports turning off her device for the past 24 hours after having it set at 70 stimulation setting for 12 hours per day for 5 days and noted increased pain and tenderness. We restarted Sprint device during today's visit and were able to achieve positive paresthesia for left low back at 65 without any discomfort. The dressing was removed today. Lead insertion site is clean, dry, intact, no redness, no swelling, no pathological discharge. Area was cleansed with Chloraprep, applied Bacitracin and covered with Sprint Tegaderm film and gauze dressing.?Patient's daughter was present during today's visit for dressing changes and prefers patient comes to our office for weekly dressing changes. Past procedures 09/14/23: Left L3 medial branch Sprint PNS trial-50-60% pain relief 07/27/23: Interlaminar epidural steroid injection, L4/5, Left parasaggital: 50% relief. 06/08/23: Bilateral Diagnostic L3-L4 DR L5-100% for 2 hours, 50% for 20 hours PRIOR: Patient is a pleasant 77 years old female with prior history of seronegative rheumatoid arthritis, idiopathic pulmonary fibrosis, interstitial lung disease on 4 L of oxygen, knee osteoarthritis and polyarthralgia, presents today for initial evaluation of chronic low back pain. Denies any past or recent trauma, injury or falls. Back pain is constant, starts early in the morning as aching and stiffness and worsens through the day as pulsing and throbbing with intermittent radiation of pain into her lateral hips but not lower extremities. She also have bilateral knee pain in medial and lateral joint lines due to OA. Denies previous spine or knee surgery or injections. Patient is under the care of our [facility] and receives Actemra weekly and prednisone 5-10 mg as needed for joint pain for flare ups which she can use up to 3 times per month. She has tried toical applications, Tylenol, and heat therapy as well as course of physical therapy with continued symptoms. Pain affects her daily functioning, mobility, mood, sleep and quality of life. Denies any fever, abdominal or groin pain, foot drop, bladder or bowel dysfunction or saddle anesthesia. 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 Location Bilateral lower back, at times will radiate to hips Duration Chronic pain for many years, worsening for past 6 months Characteristics of symptom or complaint Aching, stiffness, heavy, pulsing, throbbing Aggravating or associated factors Any movements or activity, bending, walking, standing Relieving factors Valtrum topical, Tylenol, heating pad Treatment PT- no improvement; O2 dependant PFSH Medical History detention systemic steroid user Subclinical hypothyroidism Depression Lung disease, interstitial Low back pain Hypertension Generalized osteoarthritis Gastroesophageal reflux disease with hiatal hernia Barretts esophagus Atherosclerosis Anxiety Surgical History Hx of colonoscopy Family History Mother Type 2 diabetes mellitus Hypertension Rheumatoid arthritis Hyperlipidemia Renal failure Father Coronary artery disease Brother Hyperlipidemia Hypertension Sister Hyperlipidemia Hypertension Social History Alcohol intake: never Patient Tobacco Use Status: Former Tobacco user Substance Use Type: Caffiene Current occupational status: retired 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 Alert and oriented. Mood and affect appropriate. Follows and participates in conversation appropriately. Respiratory effort is unlabored. Able to transition from sit to stand unassisted. Ambulates with bilaterally normal heel strike and toe off. Lead Insertion Site: Lead insertion site looks clean, dry, intact.? No pathological discharge, no swelling and no erythema.? Lead site dressings were changed today in the clinic. Achieved positive paresthesia at 65 on the left. Results Reviewed Results Reviewed: MR SPINE LUMBAR without CONTRAST at [facility] on 06/22/23 INDICATION: Low back pain for six months. TECHNIQUE: Unenhanced multiplanar, multisequence MR imaging of the lumbar spine. FINDINGS: Normal lumbar alignment is demonstrated. Vertebral heights are well maintained. Bone marrow signal is within normal limits, and no suspicious osseous lesion is identified. Intraosseous hemangioma noted at T12. Conus medullaris is unremarkable and terminates at L1. Partially imaged sacral perineural cysts. Perineural cysts also noted in the thoracic spine. T2 hyperintense Bosniak cyst within the left kidney. Colonic diverticula without adjacent fat stranding. T10-11: Small circumferential disc bulge mildly indents the ventral thecal sac. No significant spinal canal or neural foraminal stenosis. T11-12: Small circumferential disc bulge mildly indents the ventral thecal sac. No significant spinal canal or neural foraminal stenosis. T12-L1: Small circumferential disc bulge mildly indents the ventral thecal sac. No significant spinal canal stenosis. Mild bilateral facet arthrosis. Moderate left and mild right neural foraminal stenosis. At L1-2 there is a moderate circumferential disc bulge which mildly indents the ventral thecal sac. Mild right and moderate left facet arthrosis no significant spinal canal stenosis. Mild right and severe left neural foraminal stenosis.. At L2-3 there is moderate disc osteophyte complex, which mildly indents the ventral thecal sac. Mild bilateral facet arthrosis. Mild bilateral neural foraminal stenosis. At L3-4 there is a moderate disc osteophyte complex which moderately indents the ventral thecal sac. Moderate bilateral facet arthrosis contributes to mild spinal canal stenosis. Mild narrowing of bilateral subarticular recesses. Severe right and moderate left neural foraminal stenosis.. At L4-5 there is moderate disc osteophyte complex with a left subarticular disc protrusion which mildly impinges the left L5 nerve root in the subarticular zone. Moderate bilateral facet arthrosis. Moderate spinal canal stenosis. Mild bilateral neural foraminal stenosis. At L5-S1 there is moderate circumferential disc bulge. Moderate bilateral facet arthrosis. No significant spinal canal stenosis. Moderate right and mild left neural foraminal stenosis. IMPRESSION: Multilevel degenerative disc, worse at L4-5 with disc osteophyte complex and left subarticular disc protrusion which impinges the left L5 nerve root. Correlate for left L5 radicular symptoms. Moderate spinal canal stenosis at this level. Advanced multilevel neural foraminal stenoses as above. Correlate for reticular symptoms. MM/XR DEXA axial skeleton 06/08/22 IMPRESSION: 1. DIAGNOSIS: Osteopenia based on the lowest T-score value of -1.5 in the femoral neck applying World Health Organization criteria. Assessment & Plan Assessment & Plan (1) Intractable low back pain: Code(s): M54.59 - Other low back pain Category: Medical (2) Lumbosacral spondylosis: Code(s): M47.817 - Spondylosis without myelopathy or radiculopathy, lumbosacral region Category: Medical (3) Lumbar degenerative disc disease: Code(s): M51.36 - Other intervertebral disc degeneration, lumbar region Category: Medical Plan Patient presented today 1 week s/p Sprint PNS temporary left L3 medial branch nerve lead placement on 09/14/[address] Bowman with? 50-60%? pain relief with improvement in her functioning, ROM and sleep for left sided back pain. She will continue to slowly increase her stimulation setting and monitor her pain levels. Dressing site was without any signs of infection or pathological discharge, dressing was changed today. All questions were answered and the patient agreed with the plan. Follow up for Sprint removal and sooner if needed. Coding Level of Care Code Est Pt Level 3 (45566) Diagnoses Intractable low back pain M54.59 Lumbosacral spondylosis M47.817 Lumbar degenerative disc disease M51.36
[2023-09-21 09:14] VITALS: BP 119/63; PULSE 84; O2SAT 98
== END 2023-09-21 09:27 | disposition home or self-care (01) ==
PROVIDERS: PCP Internal Medicine; Visit Provider Nurse Practitioner Family
DX: M54.59 Other low back pain (principal); M47.817 Spondylosis without myelopathy or radiculopathy, lumbosacral region; M51.36 Other intervertebral disc degeneration, lumbar region
CPT/HCPCS: 99024

== ENCOUNTER → 2023-09-21 08:59 | Outpatient (BNVA) | payer MEDICARE, OTHER, SELFPAY | PROVIDERS: PCP Internal Medicine; Visit Provider Nurse Practitioner Family | DX: M54.59 Other low back pain (principal); M47.817 Spondylosis without myelopathy or radiculopathy, lumbosacral region; M51.36 Other intervertebral disc degeneration, lumbar region | CPT/HCPCS: 99212 ==

== ENCOUNTER → 2023-09-28 08:08 | Outpatient (BNVA) | payer MEDICARE, OTHER, SELFPAY | PROVIDERS: PCP Internal Medicine; Visit Provider Nurse Practitioner Family ==

== ENCOUNTER 2023-10-06 09:19 | Outpatient (AMB) | payer MEDICARE, OTHER, SELFPAY ==
--- NOTE | 2023-10-06 09:21 | MHC.OFFVIS ---
Vital Signs 10/06/23 09:22 Height 5 ft 6 in BP 80/50 L Blood Pressure Location Lt brachial Position Sitting Respiration 14 Pulse 90 Pulse Source Pulse Oximeter Pulse Oximetry (%) 91 L Oxygen Delivery Method Nasal Cannula Intake Visit Reasons: SPRINT FOLLOW UP/WIRE CAME OUT Allergies pirfenidone Adverse Reaction (Mild, Verified 10/06/23 09:24) Hives Iodinated Contrast Media Adverse Reaction (Unknown, Verified 10/06/23 09:24) Chest Pain Medication List - Last Reconciled 10/06/23 by Archana Hernandez LPN acetaminophen ER (Tylenol Arthritis Pain) 650 mg PO Q8H PRN 30 days Actemra ACTPen (tocilizumab) 162 mg (0.9 mL) subcut QWEEK NS alendronate 70 mg PO QWEEK alprazolam 1 mg PO TID PRN amlodipine 5 mg PO DAILY aspirin 81 mg PO DAILY atorvastatin 40 mg PO DAILY benzonatate 100 mg PO TID PRN calcium carbonate-vitamin D2 600 mg calcium- 200 unit tabs PO DAILY clonidine HCl 0.2 mg PO BID diclofenac sodium 1% 4 grams topical QID fluoxetine 20 mg PO DAILY isosorbide mononitrate ER 30 mg PO DAILY lidocaine 5% 1 patch topical DAILY 30 days lisinopril-hydrochlorothiazide 20-25 mg 1 tab PO DAILY loperamide (Anti-Diarrheal (loperamide)) mg PO loperamide mg PO montelukast 10 mg PO DAILY nintedanib (Ofev) 100 mg PO Q12H nitroglycerin 0.4 mg sublingual Q5M PRN omeprazole 40 mg PO BID prednisone 10 mg PO DAILY PRN trazodone 50 mg PO BEDTIME PRN umeclidinium 62.5 mcg/actuation (Incruse Ellipta) ea inhalation HPI HPI SPRINT FOLLOW UP/WIRE CAME OUT: Details: 78-year-old female who presents today to the office for follow-up after inadvertent sprint PNS lead removal. The patient reports mild relief for the limited duration of the trial. he reports back pain. She has to rest or sit down after prolonged walking or standing while cooking or shopping. She has been taking Tylenol 1000 mg every five hours. She visited her provider, who recommended trying baclofen. So far she has had 1 round of diagnostic lumbar medial branch block with 100 % relief for the anesthetic phase. Past procedures 09/14/2023: Lumbar Medial Branch Nerve Stimulation Lead Placement, SPR (Sprint) System, Left L3: % relief. 07/27/23: Interlaminar epidural steroid injection, L4/5, Left parasaggital: 50% relief. 06/08/23: Bilateral Diagnostic L3-L4 DR L5-100% for 2 hours, 50% for 20 hours PFS Medical History care home systemic steroid user Subclinical hypothyroidism Depression Lung disease, interstitial Low back pain Hypertension Generalized osteoarthritis Gastroesophageal reflux disease with hiatal hernia Barretts esophagus Atherosclerosis Anxiety Surgical History Hx of colonoscopy Family History Mother Type 2 diabetes mellitus Hypertension Rheumatoid arthritis Hyperlipidemia Renal failure Father Coronary artery disease Brother Hyperlipidemia Hypertension Sister Hyperlipidemia Hypertension Social History Alcohol intake: never Patient Tobacco Use Status: Former Tobacco user Substance Use Type: Caffiene Current occupational status: retired 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 Alert and oriented. Mood and affect appropriate. Follows and participates in conversation appropriately. Respiratory effort is unlabored. Able to transition from sit to stand unassisted. Ambulates with bilaterally normal heel strike and toe off. Results Reviewed Results Reviewed: No imaging is available for review. Assessment & Plan Assessment & Plan (1) Lumbosacral spondylosis: Code(s): M47.817 - Spondylosis without myelopathy or radiculopathy, lumbosacral region Category: Medical Plan Given the difficulty she has with maintaining a PNS lead in her back, I discussed lumbar radiofrequency ablation as a more optimal treatment option for her. She has had 1 positive diagnostic lumbar medial branch block so far so we will schedule her for a 2nd round in anticipation of lumbar medial branch radiofrequency ablation. Will schedule her for a Lumbar Medial Branch Block, Bilateral L3, L4 medial branches and L5 Dorsal Ramus. Discussed the risks and benefits of the procedure with the patient in detail. All questions were answered. The patient is on board with the plan. Informed the patient that insurance approval is required. We will file a PA for approval and keep her updated. Justification for interventional therapy: ? Patient with average pain > 6/10 ? Patient has exhausted conservative therapy ? Patient unable to tolerate physical therapy due to pain. ? Previous injection provided 100% relief for 2 hours . Patient has a good understanding of their pain condition and has appropriate mental and social support Scribed for Dr. Bowman by Haresh Doll, medical device sales representative, on 10/06/2023. I, Dr. Bowman, have personally reviewed and agree with the information entered by the scribe. Coding Level of Care Code Est Pt Level 3 (98281) Diagnoses Lumbosacral spondylosis M47.817
[2023-10-06 09:22] VITALS: BP 80/50; PULSE 90; RESP 14; O2SAT 91
== END 2023-10-06 09:52 | disposition home or self-care (01) ==
PROVIDERS: PCP Internal Medicine; Visit Provider Internal Medicine
DX: M47.817 Spondylosis without myelopathy or radiculopathy, lumbosacral region (principal)
CPT/HCPCS: 99213

== ENCOUNTER → 2023-10-06 09:19 | Outpatient (BNVA) | payer MEDICARE, OTHER, SELFPAY | PROVIDERS: PCP Internal Medicine; Visit Provider Internal Medicine | DX: M47.817 Spondylosis without myelopathy or radiculopathy, lumbosacral region (principal) | CPT/HCPCS: 99212 ==

== ENCOUNTER 2023-10-20 08:17 | Outpatient (REF) | payer MEDICARE, OTHER, SELFPAY ==
[2023-10-20 10:14] LABS: MANUAL DIFF FLAG NO
[2023-10-20 10:23] LABS: Basophils Absolute Auto 0.1 X10*3/uL (0.0-0.2); Basophils Percent Auto 0.6 % (0-2); Eosinophils Absolute Auto 0.2 X10*3/uL (0.0-0.4); Eosinophils Percent Auto 1.6 % (0-4); Hematocrit 37.7 % (37.0-47.0); Imm Gran Abs Auto 0.05 X10*3/uL (0.00-0.03); Imm Gran Pct Auto 0.4 % (0.0-0.4); Lymphocytes Absolute Auto 1.1 X10*3/uL (1.2-4.9); Lymphocytes Percent Auto 9.3 % (20-40); Mean Corpuscular HGB Conc 31.8 g/dl (31.0-35.0); Mean Corpuscular Hemoglobin 29.4 pg (27.0-33.0); Mean Corpuscular Volume 92.4 fL (80.0-98.0); Monocytes Absolute Auto 0.4 X10*3/uL (0.1-1.2); Monocytes Percent Auto 3.1 % (2-11); Platelet Count 310 X10*3/uL (160-400); Red Blood Count 4.08 X10*6/uL (4.20-5.50); Red Cell Distribution Width 14.9 % (11.0-16.0); White Blood Count 11.8 X10*3/uL (4.8-10.8)
[2023-10-20 11:01] LABS: Erythrocyte Sedimentation Rate 20 MM/HR (0-20)
[2023-10-20 16:53] LABS: Chloride 103 mmol/L (96-108); Potassium 3.8 mmol/L (3.3-5.1); Sodium 140 mmol/L (135-145)
[2023-10-20 16:54] LABS: Alanine Aminotransferase 16 U/L (0-31); Albumin Level 4.2 g/dL (3.5-5.0); Alkaline Phosphatase 59 U/L (39-117); Anion Gap 15 (12-20); Aspartate Amino Transferase 18 U/L (5-31); Bilirubin Total 0.5 mg/dL (0.0-1.0); Blood Urea Nitrogen 15 mg/dL (9-16); Calcium 9.7 mg/dL (8.4-10.2); Carbon Dioxide 26 mmol/L (22-29); Estimated Glomerular Filt Rate > 60; Glucose Random 139 mg/dL (60-115); Total Protein 7.2 g/dL (6.5-8.0); Vitamin D 25-OH Total 33.4 ng/mL (>30)
[2023-10-21 03:49] LABS: HBS Num1 110.81 mIU/mL (0-7.99); HBc Num1 0.17 S/CO (0.00-0.79); HBsAGNum1 0.39 S/CO (0.00-0.99); Hepatitis A Antibody IgM 0.13 Index (0-0.79); Hepatitis B Core Antibody Nonreactive (Nonreactive); Hepatitis B Surface Antigen Negative (Negative); ~HepC Num1 0.07 S/CO (0.00-0.79); ~Hepatitis A Antibody IgM Nonreactive (Nonreactive); ~Hepatitis B Surface Antibody REACTIVE (Nonreactive); ~Hepatitis C Antibody Nonreactive (Nonreactive)
[2023-10-22 21:43] LABS: TS Negative Control Passed; TS Panel A 2; TS Panel B 0; TS Positive Control Passed; TSpotTB Negative (Negative)
[2023-10-25 22:24] LABS: Collagen Type I C-Telopeptide 136 pg/mL (see note)
== END 2023-10-20 08:18 | disposition home or self-care (01) ==
LOC: HO.LAB 08:17
PROVIDERS: PCP Internal Medicine; Visit Provider Student in an Organized Health Care Education/Training Program
DX: M06.09 Rheumatoid arthritis without rheumatoid factor, multiple sites (principal); E55.9 Vitamin D deficiency, unspecified; M81.0 Age-related osteoporosis without current pathological fracture; Z11.7 Encounter for testing for latent tuberculosis infection; Z11.59 Encounter for screening for other viral diseases; Z72.89 Other problems related to lifestyle
CPT/HCPCS: 36415; 80053; 82306; 82523; 85025; 85652; 86140; 86481; 86704; 86706; 86709; 86803; 87340

== ENCOUNTER 2023-10-25 08:42 | Outpatient (AMB) | payer MEDICARE, OTHER, SELFPAY ==
--- NOTE | 2023-10-25 08:52 | MHC.OFFVIS ---
Vital Signs 10/25/23 08:55 Height 5 ft 6 in Weight 218 lb BMI 35.2 BP 88/62 L Blood Pressure Location Lt brachial Position Sitting Respiration 14 Pulse 88 Pulse Source Pulse Oximeter Pulse Oximetry (%) 97 Oxygen Delivery Method Room Air Intake Visit Reasons: RA/cm Intake Note: Patient presents for RA. Allergies pirfenidone Adverse Reaction (Mild, Verified 10/25/23 08:54) Hives Iodinated Contrast Media Adverse Reaction (Unknown, Verified 10/25/23 08:54) Chest Pain Medication List - Last Reconciled 10/25/23 by Shaila Kelly MD acetaminophen ER (Tylenol Arthritis Pain) 650 mg PO Q8H PRN 30 days Actemra ACTPen (tocilizumab) 162 mg (0.9 mL) subcut QWEEK NS alendronate 70 mg PO QWEEK alprazolam 1 mg PO TID PRN amlodipine 5 mg PO DAILY aspirin 81 mg PO DAILY atorvastatin 40 mg PO DAILY benzonatate 100 mg PO TID PRN calcium carbonate-vitamin D2 600 mg calcium- 200 unit tabs PO DAILY clonidine HCl 0.2 mg PO BID diclofenac sodium 1% 4 grams topical QID fluoxetine 20 mg PO DAILY isosorbide mononitrate ER 30 mg PO DAILY lidocaine 5% 1 patch topical DAILY 30 days lisinopril-hydrochlorothiazide 20-25 mg 1 tab PO DAILY loperamide (Anti-Diarrheal (loperamide)) mg PO loperamide mg PO montelukast 10 mg PO DAILY nintedanib (Ofev) 100 mg PO Q12H nitroglycerin 0.4 mg sublingual Q5M PRN omeprazole 40 mg PO BID prednisone 10 mg PO DAILY PRN trazodone 50 mg PO BEDTIME PRN umeclidinium 62.5 mcg/actuation (Incruse Ellipta) ea inhalation HPI Comments Details: 78-year-old female with seronegative rheumatoid arthritis and interstitial lung disease on oxygen returns for follow-up. On Actemra weekly and prednisone 10 mg daily. She states that she was recently evaluated by Dr. Ayers and home hospice was recommended. Patient is DNR. She states that her lung capacity was 18%. She states that it had dropped significantly since the previous test. She was evaluated recently by pain management and had few injections, some were helpful and others were not, she is going for another injection early next month. She continues to have back pain and stiffness, she also gets intermittent right ankle pain and swelling. Overall she feels that the Actemra has provided significant relief. Initial history: This is a 76-year-old female with a past medical history of ILD on 4 L of oxygen who presents for evaluation of multiple joint pains. 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 She states she was told she has osteoarthritis. She mentions that her sister was recently diagnosed with rheumatoid arthritis. 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 States that her shortness of breath have been progressively worsening. Patient mentions that over the last 6 months she has developed worsening joint pain affecting her wrists, knees, especially the ankles, back pain radiating to her hips.. Sometimes associated with swelling. States that the joint pain and stiffness is generally much worse in the morning, morning stiffness improving after at least 1 hour. She was prescribed varying doses of prednisone up to 40 mg daily, currently she is finishing up a prednisone taper. She is currently on 10 mg of prednisone daily. Stated that the prednisone at least gives her a 50% relief. She denies Raynaud's. Denies any skin changes. Mentions that recently she has been having difficulty swallowing liquids. Denies any history of DVT/PE. 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 Subclinical hypothyroidism Depression Lung disease, interstitial Low back pain Hypertension Generalized osteoarthritis Gastroesophageal reflux disease with hiatal hernia Barretts esophagus Atherosclerosis Anxiety Surgical History Hx of colonoscopy Family History Mother Type 2 diabetes mellitus Hypertension Rheumatoid arthritis Hyperlipidemia Renal failure Father Coronary artery disease Brother Hyperlipidemia Hypertension Sister Hyperlipidemia Hypertension Social History Alcohol intake: never Patient Tobacco Use Status: Former Tobacco user Substance Use Type: Caffiene Current occupational status: retired 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 Female Reproductive History Menstrual Total pregnancies: 1 Ab spontaneous: 1 Review of Systems Card Reports dyspnea and Reports dyspnea on exertion Resp Reports dyspnea and Reports dyspnea on exertion Musc Reports back pain, Reports arthralgias and Reports joint swelling Neuro Reports no additional complaints Psych Reports depression Physical Exam Vital Signs: Last Vital Signs Pulse 88 10/25/23 08:55 Resp 14 10/25/23 08:55 BP 88/62 L 10/25/23 08:55 Pulse Ox 97 10/25/23 08:55 Oxygen Delivery Method Room Air 10/25/23 08:55 BMI result Body Mass Index 35.2 Const General: cooperative, healthy appearing and comfortable Nutritional Appearance: obese Orientation/consciousness: patient oriented x3 HEENT Head: Yes normocephalic and Yes atraumatic Resp Effort & Inspection: normal respiratory effort and able to speak in complete sentences Auscultation: crackles bilateral at the base and diminished lung sounds bilateral in the lower lung rayo Cardio Rate: regular rate Rhythm: regular rhythm GI Inspection: No distended Palpation (GI): Soft to palpation and nontender Skin General skin exam: no rashes or lesions noted Neuro General: patient oriented x3 Extrem Other: No synovitis hands wrists bilaterally Normal range of motion of shoulders Bilateral knee crepitus No ankle synovitis today Normal nailfold capillaroscopy Psych Other: tearful Assessment & Plan Assessment & Plan (1) Rheumatoid arthritis: Comment: seroneg dx 06/23 Actemra started 07/24 advanced to weekly 11/2022 effective On prednisone intermittently Code(s): M06.9 - Rheumatoid arthritis, unspecified Category: Medical Qualifiers: Rheumatoid arthritis location: multiple sites Rheumatoid factor presence: without rheumatoid factor Qualified Code(s): M06.09 - Rheumatoid arthritis without rheumatoid factor, multiple sites Plan: This is a 78-year-old female with seronegative RA & concomitant interstitial lung disease returns for follow-up. On Actemra weekly. She has been taking prednisone 10 mg daily for back pain. There is no active synovitis on exam. Her inflammatory markers are elevated for unclear reason. Clinically it does not seem that she has an infection. Today patient told me that she recently had new PFTs and she was told that her lung capacity is 18% and she had a discussion with Dr. Ayers and the likely decision would be that she is going to go on home hospice. She is DNR/DNI. From Rheumatology standpoint, even if she is on hospice, I think patient should continue her Actemra regularly given that it provides symptomatic relief of her joint pain and swelling. Overall her inflammatory arthritis has done much better since Actemra was started Continue with Actemra 162 mg once weekly. Advised patient to try to taper prednisone as soon as she completes her spine intervention. 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 However her FRAX for major osteoporotic fracture is 25.7% and hip fracture is 5.8%. Patient is on prednisone 10 mg daily last few weeks due to degenerative disc disease of her spine advised patient to start to taper it as soon as she gets the steroid injections Alendronate was started 10/2022. Well tolerated. Per patient she has not been given an estimate of how long she would live. For now I would keep alendronate. (3) Lung disease, interstitial: Code(s): J84.9 - Interstitial pulmonary disease, unspecified Category: Medical (4) Ascending aortic aneurysm: Code(s): I71.21 - Aneurysm of the ascending aorta, without rupture Category: Medical Qualifiers: Presence of rupture: without rupture Qualified Code(s): I71.21 - Aneurysm of the ascending aorta, without rupture Plan: Per cardiology. Patient will not be a candidate for any major intervention Plan I spent 42 minutes reviewing patient's chart, evaluating patient, ordering diagnostic workup, counseling patient and documenting in the chart Orders: Orders Complete Blood Count Auto Diff 4 Months M06.09 - Rheumatoid arthritis without rheumatoid factor, multiple sites C Reactive Protein 4 Months M06.09 - Rheumatoid arthritis without rheumatoid factor, multiple sites Comprehensive Met. Panel 4 Months M06.09 - Rheumatoid arthritis without rheumatoid factor, multiple sites Erythrocyte Sedimentation Rate 4 Months M06.09 - Rheumatoid arthritis without rheumatoid factor, multiple sites Coding Level of Care Code Est Pt Level 5 (38287) Complex EM visit Add On G2211 Diagnoses Rheumatoid arthritis of multiple sites with negative rheumatoid factor M06.09 Rheumatoid arthritis location: multiple sites Rheumatoid factor presence: without rheumatoid factor custodial systemic steroid user Z79.52 Lung disease, interstitial J84.9 Aneurysm of ascending aorta without rupture I71.21 Presence of rupture: without rupture
[2023-10-25 08:55] VITALS: BP 88/62; PULSE 88; RESP 14; O2SAT 97; BMI 35.2
== END 2023-10-25 09:34 | disposition home or self-care (01) ==
PROVIDERS: PCP Internal Medicine; Visit Provider Student in an Organized Health Care Education/Training Program
DX: M06.09 Rheumatoid arthritis without rheumatoid factor, multiple sites (principal); Z79.52 Long term (current) use of systemic steroids; J84.9 Interstitial pulmonary disease, unspecified; I71.21 Aneurysm of the ascending aorta, without rupture
CPT/HCPCS: 99215; G2211

== ENCOUNTER → 2023-10-25 08:42 | Outpatient (BNVA) | payer MEDICARE, OTHER, SELFPAY | PROVIDERS: PCP Internal Medicine; Visit Provider Student in an Organized Health Care Education/Training Program | DX: M06.09 Rheumatoid arthritis without rheumatoid factor, multiple sites (principal); J84.9 Interstitial pulmonary disease, unspecified; I71.21 Aneurysm of the ascending aorta, without rupture; Z99.81 Dependence on supplemental oxygen; Z79.52 Long term (current) use of systemic steroids | CPT/HCPCS: 99212 ==

== ENCOUNTER 2023-11-02 06:06 | Outpatient (REF) | payer MEDICARE, OTHER, SELFPAY ==
--- NOTE | ~2023-11-02 | FL_ITS ---
EXAMINATION: XR FLUOROSCOPY WITH IMAGES CLINICAL INFORMATION: Spondylosis without myelopathy or radiculopathy, lumbosacral region. COMPARISON: Lumbar plane films to 824. TECHNIQUE: Fluoroscopy provided to: Dr. Bowman Fluoroscopy time: 0.1 minutes DAP: 0.0170 mGycm2 Images: 1 FINDINGS: Dorsal coned-down image inferior lumbar spine shows needles overlying the bilateral L5-S1 lateral facets and right L4 pedicle. FL/FL guidance in treatment room IMPRESSION: Fluoroscopic guidance. Please refer to the full operative report for details. Electronically signed by: Guru Stock MD 12/28/2023 09:21 AM EDT
== END 2023-11-02 06:07 | disposition home or self-care (01) ==
LOC: CF 06:06
PROVIDERS: Visit Provider Internal Medicine
DX: M47.817 Spondylosis without myelopathy or radiculopathy, lumbosacral region (principal)
CPT/HCPCS: 64493; 64494; J2795; Q9967

== ENCOUNTER 2023-11-02 08:06 | Outpatient (AMB) | payer MEDICARE, OTHER, SELFPAY ==
[2023-11-02 08:10] VITALS: BP 108/66; PULSE 90; RESP 16; O2SAT 95
--- NOTE | 2023-11-02 08:49 | A.OFFVIS_ITS ---
Vital Signs 11/02/23 08:10 11/02/23 08:50 BP 108/66 84/55 L Blood Pressure Location Lt brachial Lt brachial Position Sitting Sitting Respiration 16 17 Pulse 90 76 Pulse Source Pulse Oximeter Pulse Oximetry (%) 95 97 Oxygen Delivery Method Nasal Cannula Nasal Cannula Oxygen Flow Rate 4 4 Comment Pre-op Post-op Intake Visit Reasons: Ravin Dx L3-L4-DR-L5 MBB Allergies pirfenidone Adverse Reaction (Mild, Verified 10/25/23 08:54) Hives Iodinated Contrast Media Adverse Reaction (Unknown, Verified 10/25/23 08:54) Chest Pain HPI HPI Ravin Dx L3-L4-DR-L5 MBB: Details: Patient presents for scheduled procedure. Denies any recent cough, cold, infection, fever or other significant changes in medical history since last office visit. 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 Subclinical hypothyroidism Depression Lung disease, interstitial Low back pain Hypertension Generalized osteoarthritis Gastroesophageal reflux disease with hiatal hernia Barretts esophagus Atherosclerosis Anxiety Surgical History Hx of colonoscopy Family History Mother Type 2 diabetes mellitus Hypertension Rheumatoid arthritis Hyperlipidemia Renal failure Father Coronary artery disease Brother Hyperlipidemia Hypertension Sister Hyperlipidemia Hypertension Social History Alcohol intake: never Patient Tobacco Use Status: Former Tobacco user Substance Use Type: Caffiene Current occupational status: retired 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 The patient was placed in a prone position. The respective lumbosacral area was prepped with chloraprep and draped in sterile fashion. The skin over the target medial branch nerves was anesthetized with 0.5% lidocaine. A 22 gauge 3.5 inch needle was inserted into the target medial branch nerve under fluoroscopic guidance. No paresthesias were elicited with needle placement and aspiration was negative for blood and CSF. Next 0.5 ml 0.5% bupivicaine was injected (0.5cc total per level). The identical procedure was performed at the remaining levels. The skin was cleansed and a sterile bandage was applied. Following the procedure the patient's vital signs were stable. The patient tolerated the procedure well and no complications were encountered. Following the procedure the patient's vital signs were stable. The patient was discharged home in good condition with post-procedural instructions. Time Out: Immediately prior to the procedure, the following was verbally confirmed that there is a signed consent form and that the correct patient, planned procedure, site and side are consistent with documentation and that necessary equipment and/or blood products are available prior to the start of the case. Complications: none EBL: <5 cc 22454 - second level, with Fluoroscopy (Bilateral) Procedure code (CPT) selection complete Assessment & Plan Assessment & Plan (1) Lumbosacral spondylosis: Code(s): M47.817 - Spondylosis without myelopathy or radiculopathy, lumbosacral region Category: Medical Plan Patient is status post bilateral diagnostic L3, L4 medial branch L5 dorsal ramus blocks. Patient tolerated procedure well and was discharged home in stable condition with discharge instructions. All questions were answered. We will follow-up via telephone or in clinic to assess response to therapy. A follow-up appointment was made during today's visit. Orders: Orders FL guidance in treatment room Today M47.817 - Spondylosis without myelopathy or radiculopathy, lumbosacral region Coding Level of Care Code Procedure Only Diagnoses Lumbosacral spondylosis M47.817 CPT Codes Facet Injection-Lumbar/Sacral - CPT: 25789 - second level, with Fluoroscopy ([id number])
[2023-11-02 08:50] VITALS: BP 84/55; PULSE 76; RESP 17; O2SAT 97
== END 2023-11-02 09:24 | disposition home or self-care (01) ==
LOC: HO.PMCPRC 08:06
PROVIDERS: PCP Internal Medicine; Visit Provider Internal Medicine
DX: M47.817 Spondylosis without myelopathy or radiculopathy, lumbosacral region (principal)
CPT/HCPCS: 64493; 64494

== ENCOUNTER 2023-11-08 07:54 | Outpatient (AMB) | payer MEDICARE, OTHER, SELFPAY ==
--- NOTE | 2023-11-08 07:56 | A.OFFVIS_ITS ---
Vital Signs 11/08/23 08:08 Height 5 ft 6 in Weight 218 lb BMI 35.2 BP 72/46 L Blood Pressure Location Lt brachial Position Sitting Respiration 16 Pulse 95 Pulse Source Pulse Oximeter Pulse Oximetry (%) 92 Oxygen Delivery Method Nasal Cannula Intake Visit Reasons: s/p repeat maulik Dx L3-L4-DR-L5 MBB Allergies pirfenidone Adverse Reaction (Mild, Verified 11/08/23 08:10) Hives Iodinated Contrast Media Adverse Reaction (Unknown, Verified 11/08/23 08:10) Chest Pain Medication List - Last Reconciled 11/08/23 by Archana Hernandez LPN acetaminophen ER (Tylenol Arthritis Pain) 650 mg PO Q8H PRN 30 days Actemra ACTPen (tocilizumab) 162 mg (0.9 mL) subcut QWEEK NS alendronate 70 mg PO QWEEK alprazolam 1 mg PO TID PRN amlodipine 5 mg PO DAILY aspirin 81 mg PO DAILY atorvastatin 40 mg PO DAILY benzonatate 100 mg PO TID PRN calcium carbonate-vitamin D2 600 mg calcium- 200 unit tabs PO DAILY clonidine HCl 0.2 mg PO BID diclofenac sodium 1% 4 grams topical QID fluoxetine 20 mg PO DAILY isosorbide mononitrate ER 30 mg PO DAILY lidocaine 5% 1 patch topical DAILY 30 days lisinopril-hydrochlorothiazide 20-25 mg 1 tab PO DAILY loperamide (Anti-Diarrheal (loperamide)) mg PO loperamide mg PO montelukast 10 mg PO DAILY nintedanib (Ofev) 100 mg PO Q12H nitroglycerin 0.4 mg sublingual Q5M PRN omeprazole 40 mg PO BID prednisone 10 mg PO DAILY PRN trazodone 50 mg PO BEDTIME PRN umeclidinium 62.5 mcg/actuation (Incruse Ellipta) ea inhalation HPI HPI s/p repeat maulik Dx L3-L4-DR-L5 MBB: Details: 78-year-old female who presents today to the office for status post bilateral diagnostic L3-L4-DRL5 MBB. The patient reports no significant relief following the procedure. She reports her pain is worse on some days especially pain is severe upon waking up. She rates her pain on the scale of 4-5 out of 10 on , and on Monday it is about 5-6 out of 10. She also has stiffness. She also reports pain in the right side of the lower lumbar area. She has difficulty standing up as well as walking for a prolonged period of time. She has tried Lidocaine and Tylenol with no relief. The only thing that seems to have provided her with some relief with the interlaminar epidural steroid injection. Our facet interventions have not been successful. Past procedures 11/03/2023: Lumbar Medial Branch Block, Bilateral L3, L4 medial branches and L5 Dorsal Ramus: No significant relief. 09/14/2023: Lumbar Medial Branch Nerve Stimulation Lead Placement, SPR (Sprint) System, Left L3: 100% relief. 07/27/23: Interlaminar epidural steroid injection, L4/5, Left parasaggital: 50% relief. 06/08/23: Bilateral Diagnostic L3-L4 DR L5-100% for 2 hours, 50% for 20 hours PFSH Medical History [employer] systemic steroid user Subclinical hypothyroidism Depression Lung disease, interstitial Low back pain Hypertension Generalized osteoarthritis Gastroesophageal reflux disease with hiatal hernia Barretts esophagus Atherosclerosis Anxiety Surgical History Hx of colonoscopy Family History Mother Type 2 diabetes mellitus Hypertension Rheumatoid arthritis Hyperlipidemia Renal failure Father Coronary artery disease Brother Hyperlipidemia Hypertension Sister Hyperlipidemia Hypertension Social History Alcohol intake: never Patient Tobacco Use Status: Former Tobacco user Substance Use Type: Caffiene Current occupational status: retired 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 Alert and oriented. Mood and affect appropriate. Follows and participates in conversation appropriately. Respiratory effort is unlabored. Able to transition from sit to stand unassisted. Ambulates with bilaterally normal heel strike and toe off. Results Reviewed Results Reviewed: Date: 05/11/23. EXAMINATION: XR LUMBOSACRAL SPINE FINDINGS: 5 nonrib-bearing lumbar-type vertebral bodies. Vertebral body heights are maintained. Dextroconvex curvature of the lumbar spine. Grade 1 retrolisthesis of T12 on L1 and L1 on L2. No pars defects. Moderate multilevel degenerative disease with loss of disc space height, facet arthropathy and vacuum disc phenomenon. Atherosclerotic calcifications of the abdominal aorta which appears ectatic to 2.8 cm, recommend correlation with dedicated abdominal aortic ultrasound. IMPRESSION: 1. Dextroconvex curvature of the lumbar spine. Grade 1 retrolisthesis of T12 on L1 and L1 on L2. 2. Moderate multilevel degenerative disease with loss of disc space height, facet arthropathy and vacuum disc phenomenon. 3. Atherosclerotic calcifications of the abdominal aorta which appears ectatic to 2.8 cm, recommend correlation with dedicated abdominal aortic ultrasound. Assessment & Plan Assessment & Plan (1) Lumbar radiculopathy: Code(s): M54.16 - Radiculopathy, lumbar region Category: Medical Plan Will schedule for interlaminar epidural steroid injection, L4/5, left parasaggital. Discussed the risks and benefits of the procedure with the patient in detail. All questions were answered. The patient is on board with the plan. With respect to her transition to hospice care, I informed the patient that we can continue with her epidural steroid injections on a quarterly schedule to maximize comfort and manage pain. I will be happy to address any questions but her hospice care providers have regarding this plan. Justification for interventional therapy: ? Patient with average pain > 6/10 ? Patient has exhausted conservative therapy ? Patient unable to tolerate physical therapy due to pain ? Previous injection provided >50% relief . Patient has a good understanding of their pain condition and has appropriate mental and social support Scribed for Dr. Bowman by Germania back office medical assistant, on 11/08/2023. I, Dr. Bowman, have personally reviewed and agree with the information entered by the scribe.? Coding Level of Care Code Est Pt Level 3 (13777) Diagnoses Lumbar radiculopathy M54.16
[2023-11-08 08:08] VITALS: BP 72/46; PULSE 95; RESP 16; O2SAT 92; BMI 35.2
== END 2023-11-08 08:42 | disposition home or self-care (01) ==
PROVIDERS: PCP Internal Medicine; Visit Provider Internal Medicine
DX: M54.16 Radiculopathy, lumbar region (principal)
CPT/HCPCS: 99213

== ENCOUNTER → 2023-11-08 07:54 | Outpatient (BNVA) | payer MEDICARE, OTHER, SELFPAY | PROVIDERS: PCP Internal Medicine; Visit Provider Internal Medicine | DX: M54.16 Radiculopathy, lumbar region (principal) | CPT/HCPCS: 99212 ==

== ENCOUNTER 2023-11-16 07:15 | Outpatient (REF) | payer MEDICARE, OTHER, SELFPAY | END 2023-11-16 07:16 | disposition home or self-care (01) | LOC: CF 07:15 | PROVIDERS: Visit Provider Internal Medicine | DX: M54.16 Radiculopathy, lumbar region (principal) | CPT/HCPCS: 62323; J3301; Q9967 ==

== ENCOUNTER 2023-11-16 08:51 | Outpatient (AMB) | payer MEDICARE, OTHER, SELFPAY ==
[2023-11-16 08:55] VITALS: BP 71/52; PULSE 84; RESP 17; O2SAT 92
[2023-11-16 09:40] VITALS: BP 90/54; PULSE 80; RESP 17; O2SAT 94
--- NOTE | 2023-11-16 09:40 | MHC.OFFVIS ---
Vital Signs 11/16/23 08:55 11/16/23 09:40 BP 71/52 L 90/54 L Blood Pressure Location Lt brachial Lt brachial Position Sitting Sitting Respiration 17 17 Pulse 84 80 Pulse Source Pulse Oximeter Pulse Oximeter Pulse Oximetry (%) 92 94 Oxygen Delivery Method Nasal Cannula Nasal Cannula Oxygen Flow Rate 4 4 Comment Pre-op Post-op Intake Visit Reasons: Left L4-L5 parasagittal interlaminar TIAGO Allergies pirfenidone Adverse Reaction (Mild, Verified 11/08/23 08:10) Hives Iodinated Contrast Media Adverse Reaction (Unknown, Verified 11/08/23 08:10) Chest Pain HPI HPI Left L4-L5 parasagittal interlaminar TIAGO: Details: Patient presents for scheduled procedure. Denies any recent cough, cold, infection, fever or other significant changes in medical history since last office visit. 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 Subclinical hypothyroidism Depression Lung disease, interstitial Low back pain Hypertension Generalized osteoarthritis Gastroesophageal reflux disease with hiatal hernia Barretts esophagus Atherosclerosis Anxiety Surgical History Hx of colonoscopy Family History Mother Type 2 diabetes mellitus Hypertension Rheumatoid arthritis Hyperlipidemia Renal failure Father Coronary artery disease Brother Hyperlipidemia Hypertension Sister Hyperlipidemia Hypertension Social History Alcohol intake: never Patient Tobacco Use Status: Former Tobacco user Substance Use Type: Caffiene Current occupational status: retired 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 The patient was placed in the prone position. The lumbar area was widely prepped with chloraprep and draped in sterile fashion. Fluoroscopic guidance was used to identify the desired interlaminar space and for needle placement. Subcutaneous 0.5% lidocaine was used to anesthetize the skin overlying the target. A 20-gauge Araujo needle was advanced to the epidural space using loss of resistance to contrast technique under fluoroscopic AP and contralateral oblique views. There was no evidence of heme or CSF and no paresthesias were elicited with needle placement. Confirmation of epidural needle placement was performed with 1cc of omnipaque 180. Next 3 ml 0.5% lidocaine mixed with 80 mg triamcinilone was administered epidurally with no pain elicited on injection. The needle tract tubing was then cleared with a stylet. The needle was removed, skin cleansed and a sterile bandage was applied. The patient tolerated the procedure well and no complications were encountered. Following the procedure the patient's vital signs were stable. The patient was discharged home in good condition with post-procedural instructions. Time Out: Immediately prior to the procedure, the following was verbally confirmed that there is a signed consent form and that the correct patient, planned procedure, site and side are consistent with documentation and that necessary equipment and/or blood products are available prior to the start of the case. Complications: none EBL: <2 cc Coding 45483 - Caudal/Lumbar Epidural/Interlaminar with fluoroscopy Procedure code (CPT) selection complete Assessment & Plan Assessment & Plan (1) Lumbar radiculopathy: Code(s): M54.16 - Radiculopathy, lumbar region Category: Medical Plan Patient is status post left parasagittal interlaminar L4-5 TIAGO. Patient tolerated procedure well and was discharged home in stable condition with discharge instructions. All questions were answered. We will follow-up via telephone or in clinic to assess response to therapy. A follow-up appointment was made during today's visit. Orders: Orders FL guidance in treatment room Today M54.16 - Radiculopathy, lumbar region Coding Level of Care Code Procedure Only Diagnoses Lumbar radiculopathy M54.16 CPT Codes Coding - Joint 11: 56910 - Caudal/Lumbar Epidural/Interlaminar with fluoroscopy ([id number])
== END 2023-11-16 09:42 | disposition home or self-care (01) ==
LOC: HO.PMCPRC 08:51
PROVIDERS: PCP Internal Medicine; Visit Provider Internal Medicine
DX: M54.16 Radiculopathy, lumbar region (principal)
CPT/HCPCS: 62323

== ENCOUNTER 2024-02-28 11:47 | Emergency (ER) | payer MEDICARE, OTHER, SELFPAY ==
--- NOTE | ~2024-02-28 | XR_ITS ---
EXAMINATION: XR HAND/WRIST, LEFT CLINICAL INFORMATION: fall, swelling COMPARISON: Left hand and wrist radiographs 05/27/2022. TECHNIQUE: PA, lateral, and oblique views of the left hand and wrist. FINDINGS: Acute comminuted intra-articular fracture involving the distal radius metaphysis with dorsal angulation of the distal fracture fragment. No additional fractures are noted. Mild joint space narrowing involving the interphalangeal joints.Severe degenerative changes at the carpometacarpal joint with joint space narrowing and subchondral sclerosis. Soft tissue swelling of the wrist. XR/XR hand wrist LT IMPRESSION: Acute comminuted intra-articular fracture involving the distal radius metaphysis with dorsal angulation of the distal fracture fragment. Soft tissue swelling of the wrist. Electronically signed by: Byron Simmons MD 02/28/2024 01:19 PM JAY[facility] HUGHES
--- NOTE | ~2024-02-28 | XR_ITS ---
EXAMINATION: XR WRIST, LEFT CLINICAL INFORMATION: post reduction COMPARISON: Earlier same day at 12:27 PM. TECHNIQUE: PA and lateral views of the left wrist. FINDINGS: Osteopenia. No focal bony lesions. There has been reduction of a previously identified comminuted intra-articular distal radial fracture, the dorsally angulated and mildly displaced. Post reduction, there is no articular step-off identified currently. No significant displacement. Minimal dorsal angulation remains although significantly improved from prereduction. Carpal bones maintain intact and normally aligned. Moderate degenerative arthritis in the first CMC joint. Diffuse soft tissue swelling about the wrist. XR/XR wrist LT min 3V IMPRESSION: Distal radial comminuted intra-articular fracture, improved in angulation and displacement. No current articular step-off seen. Electronically signed by: Guru Stock MD 02/28/2024 05:01 PM JAYCE
--- NOTE | 2024-02-28 12:01 | ED_ITS ---
HPI - Extremity Injury (Upper) General Chief Complaint: Fall Stated Complaint: fell l wrist inj pt [facility] Time Seen by Provider: 02/28/24 15:35 Source: patient and RN notes reviewed Mode of arrival: ambulatory Limitations: no limitations History of Present Illness ED Provider: Rhiannon Alejandro PA-C HPI narrative: This is a 78-year-old female, with a history of pulmonary fibrosis on hospice and 5 L nasal cannula, and rheumatoid arthritis, who presents emergency department with complaints of left wrist pain status post mechanical fall which occurred today. Patient states that she accidentally slipped and fell landing onto her left wrist. She denies hitting her head or LOC. She was able to get herself off the ground without assistance. She states that she has a walker at home however states that she does not use it, and can ambulate freely without assistance at home. She currently is on hospice for the pulmonary fibrosis receiving morphine 3 times a day. She denies any chest pain, shortness for breath, abdominal pain, nausea, vomiting or diarrhea. Denies severe headache or dizziness. No blurred vision. No other complaints or concerns at this time. MD complaint: injury to: wrist Other injuries: none Handedness: right Place: home Relieving factors: rest Exacerbating factors: movement of extremity Context: fall and direct blow Associated symptoms: denies other symptoms Related Data Home Medications ?Medication ?Instructions ?Recorded ?Confirmed alprazolam 1 mg tablet 1 mg PO TID PRN 05/18/22 11/08/23 amlodipine 5 mg tablet 5 mg PO DAILY 05/18/22 11/08/23 atorvastatin 40 mg tablet 40 mg PO DAILY 05/18/22 11/08/23 benzonatate 100 mg capsule 100 mg PO TID PRN 05/18/22 11/08/23 clonidine HCl 0.2 mg tablet 0.2 mg PO BID 05/18/22 11/08/23 fluoxetine 20 mg capsule 20 mg PO DAILY 05/18/22 11/08/23 isosorbide mononitrate 30 mg 30 mg PO DAILY 05/18/22 11/08/23 tablet,extended release 24 hr lisinopril 20 1 tab PO DAILY 05/18/22 11/08/23 mg-hydrochlorothiazide 25 mg tablet montelukast 10 mg tablet 10 mg PO DAILY 05/18/22 11/08/23 omeprazole 40 mg capsule,delayed 40 mg PO BID 05/18/22 11/08/23 release umeclidinium 62.5 mcg/actuation ea inhalation 05/18/22 11/08/23 blister powder for inhalation (Incruse Ellipta) calcium carb-ergocalciferol (vit tab PO DAILY 05/27/22 11/08/23 D2) 600 mg calcium-200 unit tablet trazodone 50 mg tablet 50 mg PO BEDTIME PRN 05/27/22 11/08/23 aspirin 81 mg tablet,delayed 81 mg PO DAILY 01/20/23 11/08/23 release loperamide 2 mg tablet mg PO 04/25/23 11/08/23 (Anti-Diarrheal (loperamide)) nintedanib 100 mg capsule (Ofev) 100 mg PO Q12H 04/25/23 11/08/23 loperamide 2 mg capsule mg PO 07/25/23 11/08/23 Previous Rx's ?Medication ?Instructions ?Recorded nitroglycerin 0.4 mg sublingual 0.4 mg sublingual Q5M PRN chest 01/19/23 tablet pain #30 tabs prednisone 10 mg tablet 10 mg PO DAILY PRN for pain #30 04/11/23 tabs lidocaine 5 % topical patch 1 patch topical DAILY pain 30 days 05/05/23 #30 ea alendronate 70 mg tablet 70 mg PO QWEEK #12 tabs 07/10/23 diclofenac sodium 1 % topical gel 4 g topical QID #100 grams 08/29/23 acetaminophen 650 mg 650 mg PO Q8H PRN for pain #90 tabs 11/14/23 tablet,extended release Actemra ACTPen 162 mg/0.9 mL 162 mg (0.9 mL) subcut QWEEK #3.6 12/14/23 subcutaneous pen injector mL (tocilizumab) Allergies Allergy/AdvReac Type Severity Reaction Status Date / Time pirfenidone AdvReac Mild Hives Verified 02/28/24 12:05 Iodinated Contrast Media AdvReac Unknown Chest Pain Verified 02/28/24 12:05 Review of Systems Review of Systems: Yes all other systems are reviewed and are negative Constitutional: Constitutional: Reports as per [facility] Past Medical History Medical History long-term systemic steroid user Subclinical hypothyroidism Depression Lung disease, interstitial Low back pain Hypertension Generalized osteoarthritis Gastroesophageal reflux disease with hiatal hernia Barretts esophagus Atherosclerosis Anxiety Surgical History Hx of colonoscopy Family History Family History Mother Type 2 diabetes mellitus Hypertension Rheumatoid arthritis Hyperlipidemia Renal failure Father Coronary artery disease Brother Hyperlipidemia Hypertension Sister Hyperlipidemia Hypertension Social History Social History Alcohol intake: never Patient Tobacco Use Status: Former Tobacco user Substance Use Type: Caffiene Current occupational status: retired 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 Exam Vital Signs: Vital Signs: Last Vital Signs Temp 98.4 F 02/28/24 18:14 Pulse 85 02/28/24 18:14 Resp 16 02/28/24 18:14 BP 144/72 H 02/28/24 18:14 Pulse Ox 99 02/28/24 18:14 O2 Del Method Nasal Cannula 02/28/24 18:14 O2 Flow Rate 4 02/28/24 18:14 Oxygen Flow Rate 4 02/28/24 12:03 BMI result Body Mass Index 33.6 Const: General: cooperative, comfortable and no acute distress Orientation/consciousness: patient oriented x3 Limitations: no limitations HEENT: Head: Yes normal to inspection, Yes normocephalic and Yes atraumatic Ears: hearing grossly normal bilaterally General nose exam: Normal external nose present Face and sinus: Yes normal facial exam Mouth: Normal oral and palatal mucosa present, oropharynx normal and moist mucous membranes Throat: Yes posterior oropharynx normal Eyes: General: appearance normal, both eyes and all related structures Eyelids: Yes eyelids normal Conjunctivae: conjunctivae normal Sclerae: sclerae normal Pupils: Equal, round and reactive pupils present EOM: EOMs intact bilaterally Neck: Neck: Yes normal visual inspection, Yes full ROM and Yes no lymphadenopathy Lymphatic: no lymphadenopathy noted Chest: Chest palpation & inspection: normal inspection of the chest Resp: Other: On nasal cannula Effort & Inspection: normal respiratory effort and able to speak in complete sentences Cardio: Rate: regular rate Rhythm: regular rhythm Heart sounds: S1 normal heart sound present and S2 normal heart sound present GI: Inspection: Yes normal to inspection Skin: General skin exam: no rashes or lesions noted Trauma: no lacerations or abrasions Wounds: no wounds Neuro: General: patient oriented x3 and moves all extremities Cranial nerves: Yes Equal, round and reactive pupils present Extrem: Other: Left wrist, with obvious bony deformity noted with edema over the distal radius and ulna, tender to palpation overlying this region. strong radial pulse. Patient with Able to move all digits. No open wounds. Distal sensation cir culation intact. Capillary refill less than 2 seconds. General: Yes normal to inspection Right upper extremity: normal to inspection Left upper extremity: normal to inspection Right lower extremity: normal to inspection Left lower extremity: normal to inspection Course Course Course Narrative: This is a Rapid Medical Exam performed in triage by Nena Ma PA-C. Full HPI, ROS and PE to be performed by primary ED provider. 78-year-old female with a past medical history depression, interstitial lung disease on chronic O2 4.5L, HTN, OA, ACS, anxiety presenting to the ED c/o left wrist pain s/p mechanical trip & fall today. Admits to hitting head, minimally, denies LOC, headache or neck pain at present PE: + left wrist swelling and deformity. Tender to palpation. Neurovascularly intact. Plan: XRs. Recommended head/C-spine CT however patient not agreeable Medical Decision Making Medical Decision Making MDM Narrative: This is a 78-year-old female who presents emergency department for evaluation of left wrist pain status post mechanical fall which occurred today. Patient denies LOC or hitting head. Discussed with patient that given fall and her age, she should get a CT head and neck however patient adamantly refuses. I discussed with patient that we are unable to rule out an intracranial bleed or cervical spine fracture. She states that she is not concerned as she did not hit her head. I explained to her at depth that even if you fall without hitting head, her age is a risk factor for a bleed or fracture. Patient is still refuses despite knowing these risks. She is able to make these decisions, she does have this capacity. X-ray revealing distal radial comminuted intra- articular fracture with dorsal angulation. Discussed findings with patient and daughter at bedside. Discussed with orthopedic Diana ROBERTS, who recommends sugar-tong splint. Reduction was performed at bedside with gentle traction and pressure. Patient tolerated procedure well without any complications or concerns. Strong radial pulse post reduction. Patient placed in sugar-tong splint and given sling. She will follow-up outpatient. Patient is already on morphine orally for hospice, advised to continue this. Given strict return precautions. Patient stable for discharge Differential Diagnosis Differential Diagnoses: The differential diagnosis associated with the presentation includes Fracture, dislocation, contusion, sprain Radiology Impression Discussion of test interpretation with radiology: I have reviewed the radiologist's reading. Radiologist Impression: XR/XR hand wrist LT IMPRESSION: Acute comminuted intra-articular fracture involving the distal radius metaphysis with dorsal angulation of the distal fracture fragment. Soft tissue swelling of the wrist. Electronically signed by: Byron Simmons MD 02/28/2024 01:19 PM EST RP XR/XR wrist LT min 3V IMPRESSION: Distal radial comminuted intra-articular fracture, improved in angulation and displacement. No current articular step-off seen. Electronically signed by: Guru Stock MD 02/28/2024 05:01 PM EST RP Dictated By: Guru Stock MD Signed By: <Electronically signed b External Record Review External record reviewed: Inpatient record, Office record, Outpatient record, Prior outpatient labs, Prior outpatient radiology, Primary care record and Outside ED record Procedures Orthopedic Fracture Reduction Fracture #1: Time Out Performed: Yes Side: left Fracture Reduction Location: radius Analgesia: none Technique: direct manipulation and traction/counter-traction Post Reduction X-rays Demonstrate: acceptable reduction Post-reduction neuro exam: intact Post-reduction vascular exam: intact Splint Applied: Yes Patient Tolerated Procedure: well and no complications Discharge Plan Discharge Clinical Impression: Distal radius fracture, left Qualifiers: Encounter type: initial encounter Fracture type: closed Patient Disposition: Home, Self-Care Instructions: Wrist Fracture in Adults (ED) Additional Instructions: You were seen in the emergency department after injuring her left wrist. You fractured your radius. We had performed a reduction, and this placed it in a better position. We placed your wrist in a splint, as well as shoulder immobilizer. Please keep splint on until you follow-up with the orthopedist. Shoulder immobilizer can be removed at bedtime. You can problem your arm on a pillow to help with the swelling. If you feel as though your splint is too tight, please return back to the emergency room, signs that this is too tight is loss of sensation in your fingers, increased swelling into your fingers. Please continue all at-home medications as prescribed. Of note, you refused a head CT and neck CT. We are unable to rule out any intracranial bleeds or neck fractures. Intracranial bleeds as well as neck fractures can happen after falls even if you did not hit your head. Your aware of this information, and you still refused the head and neck scan. Please follow-up with the orthopedist. Call on Monday to make an appointment.. Prescriptions: No Action aspirin 81 mg tablet,delayed release (DR/EC) 81 mg PO DAILY prednisone 10 mg tablet 10 mg PO DAILY PRN (Reason: for pain) Qty: 30 0RF alendronate 70 mg tablet 70 mg PO QWEEK Qty: 12 1RF diclofenac sodium 1 % gel 4 g topical QID Qty: 100 2RF acetaminophen 650 mg tablet extended release 650 mg PO Q8H PRN (Reason: for pain) Qty: 90 1RF Actemra ACTPen 162 mg/0.9 mL pen injector 162 mg subcut QWEEK Qty: 3.6 2RF fluoxetine 20 mg capsule 20 mg PO DAILY atorvastatin 40 mg tablet 40 mg PO DAILY Incruse Ellipta 62.5 mcg/actuation blister with device inhalation omeprazole 40 mg capsule,delayed release(DR/EC) 40 mg PO BID lisinopril-hydrochlorothiazide 20-25 mg tablet 1 tab PO DAILY clonidine HCl 0.2 mg tablet 0.2 mg PO BID amlodipine 5 mg tablet 5 mg PO DAILY alprazolam 1 mg tablet 1 mg PO TID PRN isosorbide mononitrate 30 mg tablet extended release 24 hr 30 mg PO DAILY montelukast 10 mg tablet 10 mg PO DAILY benzonatate 100 mg capsule 100 mg PO TID PRN calcium carbonate-vitamin D2 600 mg calcium- 200 unit tablet PO DAILY trazodone 50 mg tablet 50 mg PO BEDTIME PRN nitroglycerin 0.4 mg tablet, sublingual 0.4 mg sublingual Q5M PRN (Reason: chest pain) Qty: 30 5RF Rx Instructions: do not exceed 3 doses per episode Ofev 100 mg capsule 100 mg PO Q12H loperamide [Anti-Diarrheal (loperamide)] 2 mg tablet PO loperamide 2 mg capsule PO lidocaine 5 % adhesive patch,medicated 1 patch topical DAILY 30 Days Qty: 30 0RF Referrals: [facility] [place] [facility] Surgeons [Provider Group] Interventions: ED Discharge Assessment Last Done: 02/28/24 18:14 Discharge Date/Time: 02/28/24 18:14 Print Language: Vietnamese
[2024-02-28 12:03] VITALS: BP 123/60; PULSE 87; RESP 20; TEMP 36.2; O2SAT 98; BMI 33.6
[2024-02-28 15:07] VITALS: BP 145/82; PULSE 86; RESP 18; TEMP 36.7; O2SAT 99
[2024-02-28 17:54] VITALS: BP 144/72; PULSE 85; RESP 16; TEMP 36.9; O2SAT 99
[2024-02-28 18:14] VITALS: BP 144/72; PULSE 85; RESP 16; TEMP 36.9; O2SAT 99
--- NOTE | 2024-02-28 18:14 | MHC.CM.ED ---
CM met with patient and her daughter/caregiver, Regina ([phone]). Pt is A&Ox4. Pt is on hospice with [facility] for hx pulmonary fibrosis. Pt fell today and fx her wrist. Her hospice volunteer coordinator is aware that this patient came to the ED for treatment. They did not revoke her hospice. Pt is on continuous oxygen at 4-4.5 L, has a hospital bed and a walker, that she does not consistently use. She usually does not have overnight care. Daughter tells CM that her Morphine has recently been increased and that they had a family meeting recently to discuss having more care in the home. States her sister lives in [place]. Her sister is supposed to care for her mother, when the times comes that she needs more care. She has been in hospice for 5 months. 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 Her PCP is Dr. Da Silva. No HCP on file. Pt and daughter are not interested in revoking hospice, or staying in ED for a PT consult. PT will be available on Monday for assessments d/u the holiday. Daughter wants to take her mother home. Pt is agreeable. Will stay with mother overnights until more help can be arranged. Daughter has 2 people who may provide private pay [employer]AL[employer] CONTR[employer] MI[employer]BI[employer]Y SUPERVISOR. Her sister is travelling from [place] to assess her mother's care needs. Daughter given listing of local [facility] facilities that provide private pay home care. Family has been looking into assisted living options. Pt and daughter again are requesting discharge home. CM contact card given. Pt aware that she can return to the ED if she does not feel safe at home. Provider aware.
== END 2024-02-28 18:14 | disposition home or self-care (01) ==
PROVIDERS: Emergency Provider Emergency Medicine
DX: S52.572A Other intraarticular fracture of lower end of left radius, initial encounter for closed fracture (principal); W01.0XXA Fall on same level from slipping, tripping and stumbling without subsequent striking against object, initial encounter; Y93.9 Activity, unspecified; Y92.9 Unspecified place or not applicable; Y99.9 Unspecified external cause status
CPT/HCPCS: 25605; 73110; 73130; 99283

== ENCOUNTER → 2024-02-28 15:59 | Outpatient (BNV) | payer MEDICARE, OTHER, SELFPAY | PROVIDERS: Emergency Provider Emergency Medicine; Visit Provider Radiology Diagnostic Radiology | DX: R22.32 Localized swelling, mass and lump, left upper limb (principal); W19.XXXA Unspecified fall, initial encounter; M18.0 Bilateral primary osteoarthritis of first carpometacarpal joints | CPT/HCPCS: 73110 ==

== ENCOUNTER 2024-03-06 09:10 | Outpatient (REF) | payer MEDICARE, OTHER, SELFPAY | END 2024-03-06 09:11 | disposition home or self-care (01) | LOC: HO.HOSX 09:10 | PROVIDERS: Visit Provider Orthopaedic Surgery | DX: M25.532 Pain in left wrist (principal); S52.502A Unspecified fracture of the lower end of left radius, initial encounter for closed fracture; J84.9 Interstitial pulmonary disease, unspecified; Z79.52 Long term (current) use of systemic steroids; I71.21 Aneurysm of the ascending aorta, without rupture | CPT/HCPCS: 73110; 99202 ==

== ENCOUNTER 2024-03-06 10:56 | Outpatient (AMB) | payer MEDICARE, OTHER, SELFPAY ==
--- NOTE | 2024-03-06 11:18 | MHC.OFFVIS ---
Vital Signs 03/06/24 11:26 Height 5 ft 6 in Weight 208 lb BMI 33.6 Intake Visit Reasons: FC- Left Distal Radius Fx, DOI 02/28/24 Intake Note: Feli 78 yr old right hand dominant female presents today with her daughters Yvonne and Regina for a new patient visit/ S/P ED on 02/28/24 for her left arm/hand. Patient states she fell at home landing in her left side. Seen in ED same day where xrays were taken, fracture was reduced and splinted. States she was told she has a distal radius fracture. Denies numbness or tingling or locking of any finger. Patient is on hospice for pulmonary fibrosis. Hx of RA, scoliosis. Allergies pirfenidone Adverse Reaction (Mild, Verified 03/06/24 11:) Hives Iodinated Contrast Media Adverse Reaction (Unknown, Verified 03/06/24 11:24) Chest Pain HPI HPI FC- Left Distal Radius Fx, DOI 02/28/24: Details: Feli is a 78 year old right hand dominant woman who presents for a left distal radius fracture, S/P fall, DOI: 02/28/24. This was reduced in the ED the same day and her fracture was reduced and she was placed in a sugar-tong splint. She is seen today with her daughters. She complains of pain in her wrist. She is on supplemental O2 for pulmonary Fibrosis, and she resides in Hospice care. She received Morphine injections t.i.d at hospice, for her low back pain. She ambulates with a walker at times. She has RA and is on Actemra & Prednisone for this. She says she is primarily under the care of [facility] and is only seen at [place] for her Morphine injections [facility] Medical History half-way systemic steroid user Subclinical hypothyroidism Depression Lung disease, interstitial Low back pain Hypertension Generalized osteoarthritis Gastroesophageal reflux disease with hiatal hernia Barretts esophagus Atherosclerosis Anxiety Surgical History Hx of colonoscopy Family History Mother Type 2 diabetes mellitus Hypertension Rheumatoid arthritis Hyperlipidemia Renal failure Father Coronary artery disease Brother Hyperlipidemia Hypertension Sister Hyperlipidemia Hypertension Social History Alcohol intake: never Patient Tobacco Use Status: Former Tobacco user Substance Use Type: Caffiene Current occupational status: retired 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 Review of Systems Const All systems reviewed & are unremarkable except as noted in HPI and below Physical Exam Vital Signs: BMI result Body Mass Index 33.6 Const General: cooperative, healthy appearing and no acute distress Orientation/consciousness: patient oriented x3 HEENT Head: Yes normocephalic and Yes atraumatic Eyes EOM: EOMs intact bilaterally Resp Effort & Inspection: normal respiratory effort and able to speak in complete sentences Cardio Jugular venous distension: no JVD Skin General skin exam: turgor normal Rashes: no rashes Neuro General: patient oriented x3 Extrem Other: Evaluation of Left Upper Extremity: The patient is alert, oriented, and in no acute distress She is on supplemental oxygen She is in a left sugar-tong splint that is clean dry and intact. Sensation intact to the tips of all digits. Cap refill brisk ROM: She is in a sugar-tong splint with her fingers splinted in extension Radiographs: 3 views of the left wrist were taken, viewed, and comparted to X-rays from 02/28/24. They show a comminuted, intra-articular distal radius fracture with dorsal displacement of the distal radius compared with postreduction radiographs Psych Appearance: grossly normal Affect: normal affect Attitude: cooperative Assessment & Plan Assessment & Plan (1) Distal radius fracture, left: Code(s): S52.502A - Unspecified fracture of the lower end of left radius, initial encounter for closed fracture Category: Medical Qualifiers: Encounter type: initial encounter Fracture type: closed (2) Lung disease, interstitial: Code(s): J84.9 - Interstitial pulmonary disease, unspecified Category: Medical (3) 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 Left distal radius fracture, comminuted intra-articular, S/P fall DOI: 11/27/24 Reduced in ED 02/28/24 I educated her about this condition I discussed operative and non-operative treatment options I recommend we manage this operatively, and she is in agreement If surgery is not an option then she will be splinted for 2 weeks and placed in a cats for an additional 2 weeks. The risks and benefits of operative treatment were discussed with the patient and the patient wishes to proceed with surgery. These risks include, but are not limited to risk of damage to blood vessels, nerves, tendons, infection, recurrence, incomplete relief of preoperative symptoms, persistent pain, possible need for further surgery and the risks associated with regional blocks and anesthesia. Due to her medical comorbidities, it is possible that anesthesia may wish to perform this under a regional block. Because of her comorbidities, and the fact that she is on the biologic medicine Actemra for her RA, I believe it would be best if possible to perform a closed reduction of the distal radius fracture and percutaneous pinning rather than a formal open reduction internal fixation with plates and screws. The plan is to take the patient to the operating room sometime on 03/11/24 for the following procedures: 1. Left distal radius CRPP vs ORIF, under general All of the preoperative paperwork including the consent was reviewed today. All the patient's questions were answered. The patient understands that they will be contacted by our team leader surgery soon to schedule this procedure She denies Diabetes, blood thinners, asthma, kidney issues She has Pulmonary Fibrosis and is on Supplemental 02. She has RA and ytakes Actemra & Prednisone. She received morphine [facility] t.i.d in [facility]. We will contact anesthesia early, to determine whether they will need Pulmonology clearance prior to surgery Please note that greater than 40 minutes was spent with this patient going over the history, evaluating the patient and radiographs, formulating possible treatment options, discussing them with the patient, and documenting the visit. Scribed for Maribel Carrion MD by Johan Gaines, medical imaging technologist, on 03/06/24 at 11:25 AM, EST. Orders: Orders XR wrist LT min 3V Today M25.532 - Pain in left wrist Coding Level of Care Code New Pt Level 4 (07266) Diagnoses Distal radius fracture, left S52.502A Encounter type: initial encounter Fracture type: closed Lung disease, interstitial J84.9 watermaster systemic steroid user Z79.52 Aneurysm of ascending aorta without rupture I71.21 Presence of rupture: without rupture
[2024-03-06 11:26] VITALS: BMI 33.6
== END 2024-03-06 12:11 | disposition home or self-care (01) ==
PROVIDERS: Visit Provider Orthopaedic Surgery
DX: S52.502A Unspecified fracture of the lower end of left radius, initial encounter for closed fracture (principal); J84.9 Interstitial pulmonary disease, unspecified; Z79.52 Long term (current) use of systemic steroids; I71.21 Aneurysm of the ascending aorta, without rupture
CPT/HCPCS: 99204

== ENCOUNTER 2024-03-07 19:56 | Emergency (ER) | payer MEDICARE, OTHER, SELFPAY ==
--- NOTE | 2024-03-07 | ECG_ITS ---
Test Reason : fall Blood Pressure : / mmHG Vent. Rate : 070 BPM Atrial Rate : 070 BPM P-R Int : 184 ms QRS Dur : 094 ms QT Int : 448 ms P-R-T Axes : 050 026 051 degrees QTc Int : 483 ms Normal sinus rhythm Cannot rule out Inferior infarct , age undetermined ST & T wave abnormality, consider anterior ischemia Abnormal ECG When compared with ECG of 12-JUL-2006 13:39, Minimal criteria for Inferior infarct are now Present ST more depressed Anterior leads QT has lengthened Referred By: Generic ED Physician Electronically Signed By:Cliff Cardenas
--- NOTE | ~2024-03-07 | XR_ITS ---
EXAMINATION: XR BILATERAL HIPS WITH AP PELVIS CLINICAL INFORMATION: fall, bilateral hip pain COMPARISON: None available. TECHNIQUE: AP view of the pelvis and single views of each hip were obtained. FINDINGS: The bone mineralization is normal. The joint spaces are fairly well-maintained for. Patient age. There is no fracture. There is lower lumbar degenerative change. Soft tissues are unremarkable. XR/XR hip BI w PEL1V IMPRESSION: 1. No fracture or dislocation. 2. Lower lumbar degenerative change. Electronically signed by: Konrad Shields MD 03/08/2024 01:26 AM [facility]
--- NOTE | ~2024-03-07 | XR_ITS ---
EXAMINATION: XR LUMBOSACRAL SPINE CLINICAL INFORMATION: fall, pain COMPARISON: Lumbar spine radiographs dated 05/11/2023 TECHNIQUE: Three views of the lumbosacral spine. FINDINGS: Stable mild dextroscoliosis of the lumbar spine. Grade 1 retrolisthesis of T12 on L1 and L1 on L2. Small multilevel anterior and posterior osteophytes of the vertebral bodies. Moderate to severe intervertebral disc space narrowing at L5-S1 and moderate at L4-L5. Mild intervertebral disc space narrowing from T12-L4. Facet joint arthropathy of L2-S1. The vertebral body heights are maintained. Extensive atherosclerosis of the ectatic abdominal aorta measuring 2.9 cm in maximal diameter. XR/XR lumbar spine 2-3V IMPRESSION: 1. No acute fracture or traumatic subluxation. 2. Multilevel degenerative changes of the lumbar spine, most prominent at L5-S1. 3. Extensive atherosclerosis of the ectatic abdominal aorta measuring 2.9 cm in maximal diameter. Recommend ultrasound of the aorta to further characterize. Electronically signed by: Yin Mckeon MD 03/07/2024 10:21 PM [facility]
--- NOTE | ~2024-03-07 | CT_ITS ---
EXAMINATION: CT HEAD WITHOUT CONTRAST CT CERVICAL SPINE WITHOUT CONTRAST CLINICAL INFORMATION: Fall. COMPARISON: None available. TECHNIQUE: Contiguous axial imaging was performed from the skull base to vertex without intravenous administration of contrast. Contiguous axial imaging was performed from the upper chest through the skull base without intravenous administration of contrast. Coronal and sagittal reformats were obtained at the acquisition workstation. This CT examination was performed using dose optimization techniques as appropriate, variously including the following: *Automated exposure control. *Adjustment of mA and/or kV according to patient size (this includes techniques or standardized protocols for targeted exams where dose is matched to indication/reason for exam; i.e. extremities or head). *Use of iterative reconstruction technique. 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 No additional loss of chi-white matter differentiation. No evidence of acute intracranial hemorrhage. A few foci of hypoattenuation in the periventricular and deep white matter are consistent with mild microangiopathy. Proportional prominence of the ventricles and sulcal spaces without evidence of obstructive hydrocephalus. No abnormal mass effect or midline shift. No extra-axial fluid collections. 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 No hyperdense vessel sign. No acute soft tissue or osseous abnormalities. Moderate mucosal thickening of the left maxillary sinus with hyperostotic [place] and hyperattenuating material centrally. Mild mucosal thickening of the remaining paranasal sinuses. Moderate rightward nasal septal deviation. The mastoid air cells and middle ear cavities are clear. Moderate degenerative arthropathy of the right temporomandibular joint. Bilateral lens extractions. Cervical Spine: The atlantooccipital and atlantoaxial articulations remain well aligned. Moderate degenerative arthropathy of the atlantodental articulation. Mild reversal the normal cervical lordosis centered on C4-C5. Mild degenerative stepwise anterolistheses of C3-C5. Otherwise, there is anatomic alignment of the vertebral bodies and posterior elements. No evidence of acute fracture or subluxation. The vertebral body heights are maintained. Advanced degenerative disc disease at C5-C6. Moderate degenerative disc disease at C4-C5 and C6-C7. Facet and uncovertebral joint arthropathy leads to osseous encroachment on the neural foramina from C2-C7. There is no prevertebral soft tissue swelling. The thyroid gland and remaining cervical soft tissues are within normal limits. The lung apices demonstrate no abnormalities. CT/CT cervical spine wo IV con IMPRESSION: 1. No evidence of acute intracranial hemorrhage or edematous territorial infarction. 2. 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 Mild underlying microangiopathy and generalized cerebral volume loss. 3. No evidence of acute fracture or traumatic subluxation of the cervical spine. Moderate multilevel degenerative spondyloarthropathy of the cervical spine. Electronically signed by: Fidel Hathaway DO 03/07/2024 10:10 PM JAYCE HUGHES
[2024-03-07 20:03] VITALS: BP 96/56; BP 98/56; PULSE 72; PULSE 80; RESP 16; TEMP 36.4; O2SAT 95; O2SAT 98; BMI 36.3
--- NOTE | 2024-03-07 20:21 | ED_ITS ---
HPI - General Adult General Chief complaint: Fall Stated complaint: ams, fall, weakness, on hospice Time Seen by Provider: 03/07/24 20:19 Source: patient and EMS Mode of arrival: EMS Limitations: no limitations History of Present Illness HPI narrative: Patient is a 78-year-old female who presents to the emergency department via EMS for evaluation after a fall. Reportedly had fallen off the back of the commode and striking her head without loss of consciousness per EMS. She states that she has been having generalized weakness to the bilateral lower extremities over the past 2 days; ?my legs have been feeling, I am having a hard time walking as I usually would?. She states that she was getting up to use the commode, she is currently taking lactulose due to ongoing constipation as a side effect from the morphine she is prescribed for her chronic lower back pain. She reports that she simply slipped off of the commode. Endorses pain to the posterior head. She denies loss of consciousness. Denies use of anticoagulants or known coagulation disorders. She also endorses diffuse pain across the lower back which is chronic for her, as well as pain to the bilateral hips. Related Data Home Medications ?Medication ?Instructions ?Recorded ?Confirmed alprazolam 1 mg tablet 0.5 mg PO TID PRN Anxiety 05/18/22 03/09/24 benzonatate 100 mg capsule 100 mg PO TID PRN Cough 05/18/22 03/09/24 clonidine HCl 0.2 mg tablet 0.2 mg PO BID 05/18/22 03/09/24 fluoxetine 20 mg capsule 40 mg PO DAILY 05/18/22 03/09/24 isosorbide mononitrate 30 mg 30 mg PO DAILY 05/18/22 03/09/24 tablet,extended release 24 hr lisinopril 20 1 tab PO DAILY 05/18/22 03/09/24 mg-hydrochlorothiazide 25 mg tablet omeprazole 40 mg capsule,delayed 40 mg PO BID 05/18/22 03/09/24 release umeclidinium 62.5 mcg/actuation 1 inh inhalation DAILY 05/18/22 03/09/24 blister powder for inhalation (Incruse Ellipta) loperamide 2 mg capsule 2 mg PO DAILY PRN Diarrhea 07/25/23 03/09/24 acetaminophen 650 mg rectal 650 mg ME Q6H PRN Fever Or Pain 03/09/24 03/09/24 suppository acetaminophen 650 mg 1,300 mg PO Q8H PRN for pain 03/09/24 03/09/24 tablet,extended release baclofen 10 mg tablet 10 mg PO BEDTIME 03/09/24 03/09/24 bisacodyl 10 mg rectal suppository 10 mg ME DAILY PRN Constipation 03/09/24 03/09/24 diclofenac sodium 1 % topical gel 4 g topical DAILY PRN Pain 03/09/24 03/09/24 haloperidol lactate 2 mg/mL oral 1 mg PO Q6H PRN Agitation 03/09/24 03/09/24 concentrate hyoscyamine sulfate 0.125 mg 0.125 mg sublingual Q4H PRN 03/09/24 03/09/24 sublingual tablet Secretions lactulose 10 gram/15 mL oral 20 g PO DAILY 03/09/24 03/09/24 solution lorazepam 0.5 mg tablet 0.5 mg PO Q6H PRN Agitation 03/09/24 03/09/24 morphine concentrate 100 mg/5 mL 5 mg PO Q3H PRN PAIN OR SHORTNESS 03/09/24 03/09/24 (20 mg/mL) oral solution OF BREATH morphine concentrate 100 mg/5 mL 10 mg PO TID PRN Pain 03/09/24 03/09/24 (20 mg/mL) oral solution nystatin 100,000 unit/gram topical 1 appl topical BID PRN Skin 03/09/24 03/09/24 cream Irritation polyethylene glycol 3350 17 17 g PO DAILY 03/09/24 03/09/24 gram/dose oral powder (Miralax) prochlorperazine maleate 10 mg 10 mg PO Q6H PRN Nausea And 03/09/24 03/09/24 tablet Vomiting sennosides 8.6 mg tablet (senna) 17.2 mg PO BID PRN Constipation 03/09/24 03/09/24 Previous Rx's ?Medication ?Instructions ?Recorded nitroglycerin 0.4 mg sublingual 0.4 mg sublingual Q5M PRN chest 01/19/23 tablet pain #30 tabs lidocaine 5 % topical patch 1 patch topical DAILY pain 30 days 05/05/23 #30 ea alendronate 70 mg tablet 70 mg PO QWEEK #12 tabs 07/10/23 cefuroxime axetil 250 mg tablet 250 mg PO Q12H #10 tabs 03/09/24 Allergies Allergy/AdvReac Type Severity Reaction Status Date / Time pirfenidone AdvReac Mild Hives Verified 03/07/24 20:09 Iodinated Contrast Media AdvReac Unknown Chest Pain Verified 03/07/24 20:09 Review of Systems 2 Review of Systems: Yes all other systems are reviewed and are negative [facility], [facility] Past Medical History Attestation statement: The following information was validated with the patient. 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 Subclinical hypothyroidism Depression Lung disease, interstitial Low back pain Hypertension Generalized osteoarthritis Gastroesophageal reflux disease with hiatal hernia Barretts esophagus Atherosclerosis Anxiety Surgical History Hx of colonoscopy Family History Family History Mother Type 2 diabetes mellitus Hypertension Rheumatoid arthritis Hyperlipidemia Renal failure Father Coronary artery disease Brother Hyperlipidemia Hypertension Sister Hyperlipidemia Hypertension Social History Social History Alcohol intake: never Patient Tobacco Use Status: Former Tobacco user Smoked in Last 30 Days: No Use of substances other than those prescribed or required for medical reasons: No Substance Use Type: Caffiene Advance Directives: Yes Advance Directives on File: Yes Advance Directives Date on File: 03/08/24 Current occupational status: retired 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 Physical Exam ED Vital Signs: Vital Signs - 24 hr 03/08/24 11:09 03/08/24 12:34 03/08/24 14:27 Temperature 98.3 F 98.5 F 98.3 F Pulse Rate 85 94 93 Respiratory Rate 18 25 H 22 H Blood Pressure 119/52 L 136/66 137/56 L Pulse Oximetry 96 97 97 Oxygen Delivery Method Room Air Nasal Cannula Nasal Cannula Oxygen Flow Rate 5 5 03/08/24 19:43 03/09/24 03:56 03/09/24 08:47 Temperature 98.2 F 98.4 F 98.2 F Pulse Rate 93 96 91 Respiratory Rate 18 18 25 H Blood Pressure 160/75 H 161/72 H 186/91 H Pulse Oximetry 92 94 97 Oxygen Delivery Method Nasal Cannula Nasal Cannula Nasal Cannula Oxygen Flow Rate 5 5 5 03/09/24 09:33 03/09/24 09:34 03/09/24 09:34 Temperature Pulse Rate Respiratory Rate Blood Pressure 167/79 H 167/79 H 167/79 H Pulse Oximetry Oxygen Delivery Method Oxygen Flow Rate BMI result Body Mass Index 36.3 Appearance: Alert.?Oriented to person, place and time. No acute distress.?Normal affect. Head: Normocephalic, atraumatic Eyes: Pupils equal, round and reactive to light.? EOMI. No palpable periorbital deformities or ecchymosis ENT: Pharynx normal.??TM normal bilaterally. No rhinorrhea. No septal hematoma. TM normal bilaterally Neck: Normal inspection.? Neck supple.??No midline cervical spine tenderness, step-offs, deformities. Back: No midline thoracic or lumbar spine tenderness, step-offs, deformities. Diffuse tenderness all across the lumbar region of the back paraspinal muscles, and bilateral hips. CVS: Heart sounds normal. Normal heart rate and rhythm.? Pulses normal.?? Respiratory: No respiratory distress.? Lung sounds clear to auscultation bilaterally?? Abdomen: Soft and non-tender. Normoactive bowel sounds Skin: Skin warm and dry.? Normal skin color.? Extremities: No lower extremity edema.? No calf ttp. Decreased AROM to bilateral hips reportedly due to pain. No obvious deformity. No shortening or rotation. Full range of motion right upper extremity, decreased AROM to left upper extremity with sugar-tong splint in place for distal radius fracture. 2+ DP/PT pulse, 2+ radial on the right, due to splint unable to palpate on the right, normal capillary refill, moving the digits without difficulty. Neuro: Moves all extremities spontaneously. Sensation intact bilaterally. CN II- XII intact. No focal neuro deficits. Course Course Course Narrative: 03/08/24 Physician observation continued. Family now stating they do not feel comfortable with bringing patient home. CM following for disposition. Scheduled PO Morphine ordered. Reevaluation(s) Reevaluation #1: Serum labs revealing leukocytosis 17.3 with left shift, new thrombocytosis, new normocytic anemia with hemoglobin 9.6 and hematocrit 29.1.hyponatremia, hypokalemia, STEPHANIE, no anemia leukocytosis with a left shift. Spoke with daughter at bedside, requesting potassium replacement as this may be hospital cause for weakness. She was going to speak with her hospice provider to determine whether any further care/treatment would impact her qualifications for hospice Time: 21:30 Reevaluation #2: I spoke with patient and patient's daughter in, Maribel appears to be under the impression that after speaking with her hospice provider that as long as she is in the hospital and staying in the hospital and being treated for things unrelated to her pulmonary fibrosis then she is fine and her hospice can continue?. I did discuss with Maribel that I am not certain that this is entirely accurate, and an inpatient admission and acute management may in fact revoked her hospice. She does want patient to be further treated and admitted into hospital. Pending urinalysis, urine sodium and urine Osmo, serum osmolality. Potassium has been repleted with 20 mEq use IV, 40 mEq p.o., reviewed this case with my attending Dr. Corey will give NS 500mL pending further workup for hyponatremia. Reevaluation #3: I have had multiple conversations with patient, her daughter Maribel, and Alva Jake from her hospice service at [phone]. Reviewed with patient her options which include hospital admission for management of acute electrolyte derangement, STEPHANIE, urinary retention with the consideration that her hospice would be revoked for the time being and she would resume care as she wishes upon discharge. We also discussed the possibility of patient returning home, in the implications of what these electrolyte derangements in STEPHANIE may potentially have including that these may be more imminently life-threatening than her current pulmonary fibrosis which has her on hospice. I again spoke at length with all parties involved. Patient does not want to be admitted into the hospital nor does she want any further aggressive treatment. She does have urinary retention with bladder scan greater than 400 mL, it is possible this may be secondary to urinary tract infection, she is amenable to having straight catheterization for relief of the urinary retention and urinalysis to be obtained, I did discuss with her the possibility of a Lockhart catheter placed as she may continue to experience further episodes of urinary retention she does not however wish to have a Lockhart catheter in place. I have spoke with nursing staff and they are aware of the plan of care. Patient does not have a way to get home tonight, her daughter Maribel has likely fallen asleep, she does not have the means to get into her home even if she were transported back by EMS. At this time she will be placed in physician observation with a case management consult for assistance with disposition tomorrow morning. Patient signed out to night attending for follow-up on urinalysis after catheterization. Time: 02:00 Additional Reevaluation(s): Patient will be discharged to [facility] in an hour. I agree with this plan. Case management assisted with disposition. Medications Administered Generic Name Dose Route Start Last Admin Trade Name Freq PRN Reason Stop Dose Admin Amlodipine Besylate 5 mg 03/10/24 09:00 03/09/24 09:34 Amlodipine Besylate 5 Mg Tablet PO 5 mg DAILY SOLE Administration Protocol Cefuroxime Axetil 250 mg 03/09/24 00:45 03/09/24 08:22 Cefuroxime Axetil 250 Mg Tablet PO 03/12/24 21:01 250 mg BID SOLE Administration Hydrochlorothiazide 25 mg 03/10/24 09:00 03/09/24 09:34 Hydrochlorothiazide 25 Mg Tablet PO 25 mg DAILY SOLE Administration Lisinopril 20 mg 03/10/24 09:00 03/09/24 09:33 Lisinopril 20 Mg Tablet PO 20 mg DAILY SOLE Administration Morphine Sulfate 10 mg 03/08/24 15:00 03/09/24 08:21 Morphine Sulfate Oral Rosalia 10 Mg/5 Ml Solution PO 10 mg TID SOLE Administration Discontinued Medications Generic Name Dose Route Start Last Admin Trade Name Freortiz PRN Reason Stop Dose Admin Cefuroxime Axetil 250 mg 03/08/24 02:42 03/08/24 02:49 Cefuroxime Axetil 250 Mg Tablet PO 03/08/24 02:43 250 mg ONCE ONE Administration Potassium Chloride 10 meq in 100 mls @ 100 mls/hr 03/07/24 22:00 03/07/24 23:42 Potassium Chloride/H20 IV 03/07/24 23:59 Infused Q1H SOLE Infusion Sodium Chloride 500 mls @ 500 mls/hr 03/08/24 00:30 03/08/24 02:14 Ns IV 03/08/24 01:29 Infused .Q1H SOLE Infusion Morphine Sulfate 10 mg 03/07/24 23:27 03/07/24 23:40 Morphine Sulfate Oral Rosalia 10 Mg/5 Ml Solution PO 03/07/24 23:28 10 mg ONCE ONE Administration Morphine Sulfate 10 mg 03/08/24 06:27 03/08/24 06:33 Morphine Sulfate Oral Rosalia 10 Mg/5 Ml Solution PO 03/08/24 06:28 10 mg ONCE ONE Administration Ondansetron HCl 4 mg 03/09/24 02:05 03/09/24 02:23 Ondansetron Odt 4 Mg Tab.Rapdis TRANSLINGU 03/09/24 02:06 4 mg ONCE ONE Administration Ondansetron HCl 4 mg 03/09/24 08:40 03/09/24 08:43 Ondansetron Odt 4 Mg Tab.Rapdis TRANSLINGU 03/09/24 08:41 4 mg ONCE ONE Administration Potassium Chloride 40 meq 03/07/24 21:35 03/07/24 21:40 Potassium Chloride Packet 20 Meq Packet PO 03/07/24 21:36 40 meq ONCE ONE Administration Medical Decision Making Medical Decision Making [facility] Narrative: Patient is a 78-year-old female past medical history of pulmonary fibrosis on 5 L via nasal cannula, rheumatoid arthritis, distal radius fracture discovered on recent ED visit 02/28/2024 with splint intact to the left forearm who presents emergency department for evaluation. She had a fall off of the commode today resulting in a head strike but no loss of consciousness. No use of anticoagulants or known coagulation disorders. Has pain to the lower back which is acute on chronic, reported pain to the bilateral hips. She has expressed a an increasing generalized weakness particularly to the bilateral lower extremities over the past [address] head to exclude ICH, SDH, fracture, CT cervical spine to exclude fracture/subluxation. XR of the lumbar spine and bilateral hip/pelvic to exclude fracture/dislocation. Will obtain CBC to evaluate for leukocytosis/ anemia, CMP and lipase to evaluate for abnormal electrolytes /abnormal renal function/ abnormal hepatic/biliary function, EKG and troponin to evaluate for ischemia/ACS, and Urinalysis. Differential Diagnosis Differential Diagnoses: The differential diagnosis associated with the presentation includes (See narrative above) Admission/Observation Consideration of admission/observation: Escalation of care including admission/observation considered Lab Data MDM Lab Attestation statement: I reviewed the patient's lab results. (See course narrative) 03/07/24 20:54 03/07/24 20:54 Labs: Lab Results 03/07/24 03/08/24 Range/Units 20:54 02:12 WBC 17.3 H (4.8-10.8) X10*3/uL RBC 3.50 L (4.20-5.50) X10*6/uL Hgb 9.6 L (12.0-16.0) g/dl Hct 29.1 L D (37.0-47.0) % MCV 83.1 (80.0-98.0) fL MCH 27.4 (27.0-33.0) pg MCHC 33.0 (31.0-35.0) g/dl RDW 16.4 H (11.0-16.0) % Plt Count 458 H D (160-400) X10*3/uL MPV 10.3 (9.4-12.3) fL Immature Gran % (Auto) 0.8 H (0.0-0.4) % Neut % (Auto) 82.5 H (45-73) % Lymph % (Auto) 7.1 L (20-40) % Jack % (Auto) 9.4 (2-11) % Eos % (Auto) 0.0 (0-4) % Baso % (Auto) 0.2 (0-2) % Lymph # (Auto) 1.2 (1.2-4.9) X10*3/uL Jack # (Auto) 1.6 H (0.1-1.2) X10*3/uL Eos # (Auto) 0.0 (0.0-0.4) X10*3/uL Baso # (Auto) 0.0 (0.0-0.2) X10*3/uL Abs Immat Gran (auto) 0.14 H (0.00-0.03) X10*3/uL Absolute Neuts (auto) 14.3 H (2.0-8.3) x10*3/uL Absolute Nucleated RBC 0.000 (0.0-0.012) X10*3/uL Nucleated RBC % (auto) 0.0 (0.0-0.2) /100WBC Smear Tech's Comments VERIFIED Sodium 126 L (135-145) mmol/L Potassium 2.8 L* D (3.3-5.1) mmol/L Chloride 91 L (96-108) mmol/L Carbon Dioxide 24 (22-29) mmol/L Anion Gap 14 (12-20) BUN 25 H (9-16) mg/dL Creatinine 1.60 H (0.5-1.4) mg/dL Estim Creat Clear Calc 34.9 Estimated GFR 31 Random Glucose 145 H (60-115) mg/dL Calcium 8.4 D (8.4-10.2) mg/dL Magnesium 2.0 (1.6-2.6) mg/dL Total Bilirubin 0.8 (0.0-1.0) mg/dL AST 48 H (5-31) U/L ALT 18 (0-31) U/L Alkaline Phosphatase 138 H (39-117) U/L Troponin I High Sens 9.7 (<3.5-17.0) ng/L Total Protein 6.3 L (6.5-8.0) g/dL Albumin 2.8 L (3.5-5.0) g/dL Urine Color Dark Yellow Urine Appearance Cloudy Urine pH 5.5 (5.0-9.0) Ur Specific Gustine 1.010 (1.005-1.025) Urine Protein 30 (1+) H (Neg-Trace) mg/dL Urine Glucose (UA) Negative (Negative) mg/dL Urine Ketones Negative (Negative) mg/dL Urine Blood Negative (Negative) Urine Nitrite Negative (Negative) Ur Leukocyte Esterase Large (3+) H (Negative) Urine RBC 0-2 (0-2) /HPF Urine WBC >50 (0-5) /HPF Ur Squamous Epith Cells 6-10 (0-2) /HPF Urine Bacteria 4+ (None Seen) Hyaline Casts 6-10 (0-2) /LPF Influenza Type A (PCR) NEGATIVE (Negative) Influenza Type B (PCR) NEGATIVE (Negative) RSV RNA Qual (PCR) NEGATIVE (Negative) SARS-CoV-2 RNA (RT-PCR) NEGATIVE (Negative) Independent Interpretation I performed an independent interpretation of an: CT Scan (No ICH, no fracture) Radiology Impression Discussion of test interpretation with radiology: I have reviewed the radiologist's reading. Radiologist Impression: CT/CT head/brain wo IV con IMPRESSION: 1. No evidence of acute intracranial hemorrhage or edematous territorial infarction. 2. 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 Mild underlying microangiopathy and generalized cerebral volume loss. 3. No evidence of acute fracture or traumatic subluxation of the cervical spine. Moderate multilevel degenerative spondyloarthropathy of the cervical spine. XR/XR lumbar spine 2-3V IMPRESSION: 1. No acute fracture or traumatic subluxation. 2. Multilevel degenerative changes of the lumbar spine, most prominent at L5-S1. 3. Extensive atherosclerosis of the ectatic abdominal aorta measuring 2.9 cm in maximal diameter. Recommend ultrasound of the aorta to further characterize. Independent Historian Clinical information obtained from an independent historian. History obtained from or confirmed by: Other (See course narrative for further detail) External Record Review External record reviewed: Outpatient record Prescription Management I considered prescription management with: Pain Medication Critical Care Time Critical Care Time Critical Care Time: Yes Total Critical Care Time: 45 Attestation: I personally attest to this critical care time spent taking care of the patient exclusive of all other billable procedures was approximately 45 minutes including initial evaluation of patient, ordering tests, IV potassium replacement, CT interpretation, XR interpretation, EKG interpretation, medical consultation, documentation, re-evaluation. Discharge Plan Discharge Clinical Impression: Urinary tract infection, Acute kidney injury, Acute hyponatremia, Acute hypokalemia Patient Disposition: Xfer SNF Instructions: Urinary Tract Infection in Older Adults (ED) Additional Instructions: You have a urinary tract infection Take the antibiotic twice daily for a total of 5 days, your 1st few doses were given in the ER Follow-up with your primary doctor, return for new or worsening symptoms Prescriptions: New cefuroxime axetil 250 mg tablet 250 mg PO Q12H Qty: 10 0RF No Action alendronate 70 mg tablet 70 mg PO QWEEK Qty: 12 1RF acetaminophen 650 mg tablet extended release 1,300 mg PO Q8H PRN (Reason: for pain) morphine concentrate 100 mg/5 mL (20 mg/mL) Solution 5 mg PO Q3H PRN (Reason: PAIN OR SHORTNESS OF BREATH) morphine concentrate 100 mg/5 mL (20 mg/mL) Solution 10 mg PO TID PRN (Reason: Pain) lorazepam 0.5 mg Tablet 0.5 mg PO Q6H PRN (Reason: Agitation) hyoscyamine sulfate 0.125 mg Tablet, Sublingual 0.125 mg SUBLINGUAL Q4H PRN (Reason: Secretions) haloperidol lactate 2 mg/mL Concentrate 1 mg PO Q6H PRN (Reason: Agitation) sennosides [senna] 8.6 mg Tablet 17.2 mg PO BID PRN (Reason: Constipation) prochlorperazine maleate 10 mg Tablet 10 mg PO Q6H PRN (Reason: Nausea And Vomiting) nystatin 100,000 unit/gram Cream 1 appl TOPICAL BID PRN (Reason: Skin Irritation) diclofenac sodium 1 % gel 4 g topical DAILY PRN (Reason: Pain) baclofen 10 mg Tablet 10 mg PO BEDTIME lactulose 10 gram/15 mL Solution 20 g PO DAILY polyethylene glycol 3350 [Miralax] 17 gram/dose Powder 17 g PO DAILY acetaminophen 650 mg Suppository 650 mg ME Q6H PRN (Reason: Fever Or Pain) bisacodyl 10 mg Suppository 10 mg ME DAILY PRN (Reason: Constipation) fluoxetine 20 mg capsule 40 mg PO DAILY Incruse Ellipta 62.5 mcg/actuation blister with device 1 inh inhalation DAILY omeprazole 40 mg capsule,delayed release(DR/EC) 40 mg PO BID lisinopril-hydrochlorothiazide 20-25 mg tablet 1 tab PO DAILY clonidine HCl 0.2 mg tablet 0.2 mg PO BID alprazolam 1 mg tablet 0.5 mg PO TID PRN (Reason: Anxiety) isosorbide mononitrate 30 mg tablet extended release 24 hr 30 mg PO DAILY benzonatate 100 mg capsule 100 mg PO TID PRN (Reason: Cough) nitroglycerin 0.4 mg tablet, sublingual 0.4 mg sublingual Q5M PRN (Reason: chest pain) Qty: 30 5RF Rx Instructions: do not exceed 3 doses per episode loperamide 2 mg capsule 2 mg PO DAILY PRN (Reason: Diarrhea) lidocaine 5 % adhesive patch,medicated 1 patch topical DAILY 30 Days Qty: 30 0RF Referrals: [facility] [Outside] Print Language: Pakistani
[2024-03-07 21:21] LABS: Basophils Percent Auto 0.2 % (0-2); Hematocrit 29.1 % (37.0-47.0); Hemoglobin 9.6 g/dl (12.0-16.0); Imm Gran Abs Auto 0.14 X10*3/uL (0.00-0.03); Imm Gran Pct Auto 0.8 % (0.0-0.4); Lymphocytes Absolute Auto 1.2 X10*3/uL (1.2-4.9); Lymphocytes Percent Auto 7.1 % (20-40); MANUAL DIFF FLAG SCAN; Mean Corpuscular Hemoglobin 27.4 pg (27.0-33.0); Mean Corpuscular Volume 83.1 fL (80.0-98.0); Mean Platelet Volume 10.3 fL (9.4-12.3); Monocytes Absolute Auto 1.6 X10*3/uL (0.1-1.2); Monocytes Percent Auto 9.4 % (2-11); Neutrophils Absolute Auto 14.3 x10*3/uL (2.0-8.3); Neutrophils Percent Auto 82.5 % (45-73); Platelet Count 458 X10*3/uL (160-400); Red Cell Distribution Width 16.4 % (11.0-16.0); SCAN SMEAR FLAG 1; White Blood Count 17.3 X10*3/uL (4.8-10.8)
[2024-03-07 21:24] LABS: Troponin-I High Sensitivity 9.7 ng/L (<3.5-17.0)
[2024-03-07 21:26] LABS: Alanine Aminotransferase 18 U/L (0-31); Albumin Level 2.8 g/dL (3.5-5.0); Alkaline Phosphatase 138 U/L (39-117); Anion Gap 14 (12-20); Aspartate Amino Transferase 48 U/L (5-31); Bilirubin Total 0.8 mg/dL (0.0-1.0); Blood Urea Nitrogen 25 mg/dL (9-16); Calcium 8.4 mg/dL (8.4-10.2); Carbon Dioxide 24 mmol/L (22-29); Chloride 91 mmol/L (96-108); Creatinine Clr Calc Pharmacy 34.9; Estimated Glomerular Filt Rate 31; Glucose Random 145 mg/dL (60-115); Potassium 2.8 mmol/L (3.3-5.1); Sodium 126 mmol/L (135-145); Total Protein 6.3 g/dL (6.5-8.0)
[2024-03-07 21:39] LABS: Influenza A PCR NEGATIVE (Negative); Influenza B PCR NEGATIVE (Negative); Resp Syncy Virus RNA Qual PCR NEGATIVE (Negative); SARS COV2 PCR INHOUSE NEGATIVE (Negative)
[2024-03-07] MEDS: Potassium Chloride Packet 20 MEQ PACKET 40 MEQ PO (21:40)
[2024-03-07] MEDS: Potassium Chloride/H20 10 MEQ/100 ML PIGGYBACK 100 MEQ IV ×2 (21:41→22:49)
[2024-03-07 21:47] VITALS: BP 144/74; PULSE 72; RESP 23; O2SAT 98
[2024-03-07 21:54] LABS: SLIDE REVIEW VERIFIED
[2024-03-07 22:42] VITALS: BP 172/91; PULSE 76; RESP 24; O2SAT 99
[2024-03-07] MEDS: Morphine Sulfate Oral Sol 10 MG/5 ML SOLUTION PO (23:40)
[2024-03-07 23:44] VITALS: BP 153/82; PULSE 81; RESP 23; TEMP 36.4; O2SAT 99
[2024-03-08] VITALS (9 sets, daily range): BP systolic 100–160; BP diastolic 47–75; PULSE 74–94; RESP 18–25; TEMP 36.1–36.9; O2SAT 92–98
[2024-03-08] MEDS: 0.9 % Sodium Chloride 500 ML IV (00:50)
[2024-03-08 02:22] LABS: Appearance Urine Cloudy; Color Urine Dark Yellow; Glucose Urine UA Negative (Negative); Leukocyte Esterase Urine Large (3+) (Negative); Nitrite Urine Negative (Negative); PH 5.5 (5.0-9.0); UMIC TRIGGER UA YES; Urine Blood Negative (Negative); Urine Ketones Negative (Negative); Urine Protein 30 (1+) mg/dL (Neg-Trace)
[2024-03-08 02:35] LABS: Bacteria Urine 4+ (None Seen); RBC Urine 0-2 /HPF (0-2); WBC Urine >50 /HPF (0-5)
[2024-03-08] MEDS: cefuroxime axetiL 250 MG TABLET PO (02:49)
[2024-03-08] MEDS: Morphine Sulfate Oral Sol 10 MG/5 ML SOLUTION PO ×3 (06:33→20:48)
--- NOTE | 2024-03-08 07:00 | PC.NURSE ---
Report taken from HELLEN Pierce and Racheal RN
--- NOTE | 2024-03-08 09:26 | MHC.CM.ED ---
Addendum entered by Clemencia Vance 03/08/24 10:21: Sergio will send their clinical info to . Addendum entered by Clemencia Vance 03/08/24 10:20: Received telephone call from CLIFFORD Hill for [facility]. Family is aware room and board is required to be privately paid. Facility choices: 1) [facility]. 2) [facility]. [facility] Original Note: Received case management consult overnight. Patient came to the ER after a fall. Active with [facility]. Patient had no interest in being admitted but was not able to return home because she was not able to get into her home. T/W confirmed with [facility] that patient is active with their hospice agency. Spoke with patient's daughter, Maribel, via telephone at [phone]. Maribel stated her sister, Cecilia, was at patient's home and can be reached via telephone at [phone]. Attempted to speak with Cecilia via telephone at [phone]. Left voicemail requesting return telephone call. Received notification from Nessa MACEDO that Maribel is concerned about patient being d/c'd home without safer plan of care with hospice. T/W spoke with Chema, Clinical supervisor frame sample and pattern of [facility]. Agency is concerned about patient returning home due to 2 falls in the past week and concern about family being able to care for patient. octaviano Hill will contact CM to discuss plan moving forward. Continue to monitor for d/c needs.
--- NOTE | 2024-03-08 11:27 | MHC.EDTECH ---
Pt bed soiled, changed, pt on purewick.
--- NOTE | 2024-03-08 12:25 | MHC.CM.ED ---
Addendum entered by Clemencia Vance 03/08/24 15:24: Per Steffi of Dr Diego's office, no surgery planned for patient on 03/11. On hold at this time. Addendum entered by Clemencia Vance 03/08/24 15:16: Hospice does not have [facility] on file. Addendum entered by Clemencia Vance 03/08/24 14:12: Patient and family accepts bed at [facility]. Faciity made aware and will reach out to Cecilia to arrange financials. Original Note: [facility] and [facility] are able to offer a bed. Met with patient, sister Felipa and her and patient's daughters Maribel and Cecilia. Private pay information provided. Patient and family will discuss which building would be 1st choice and notify CM. Cecilia can be reached at [phone] to discuss financials. Continue to monitor for d/c needs.
--- NOTE | 2024-03-08 14:37 | PC.NURSE ---
Pt. assisted with the bedpan. After using bedpan, Purewick applied.
--- NOTE | 2024-03-08 18:46 | MHC.CM.ED ---
CM received a telephone call from Reny, the liaison at [facility] about 1615 that the business office at the facility had some concerns about finances and wanted the family to apply and complete the MH application prior to them accepting the patient. They would like to review the application. CM verified with liaison that they would not accept the patient. Liaison verified that they would not accept the patient and that she would call the family. CM spoke to the patient, who verifies that she will be living at the long term, with hospice and that her family will private pay. She tells CM that her sister has money for her and that her family will sell her condo. CM spoke with daughter, Cecilia, who believes that her mother can transport to facility tomorrow and that she may need to work on the MH application. Cecilia is unsure of CM concerns. CM tried to explain that she received a telephone call from the facility stating that the business office has concerns about finances. CM told Cecilia she would try and reach liaison to verify plan moving forward. CM unable to reach liaison. CM called and spoke with sister/HCP Felipa regarding above. Felipa assures CM that there are adequate funds to private pay for 4-6 months. CM received telephone call from Reny at 1730 stating that the business office has changed their mind, and that the patient can transport to [facility] 03/09 at 11am. This was verified on [facility]. S transport arranged with [facility] for 03/09 at 11am. Message left with Cecilia and CM spoke again with sister, Felipa. Pt aware that she will transport to [facility] tomorrow 03/09 at 11am. Med nec/face sheet with breaker unit assembler. Provider and primary RN aware.
[2024-03-09] MEDS: cefuroxime axetiL 250 MG TABLET PO ×2 (01:42→08:22)
[2024-03-09] MEDS: Ondansetron ODT 4 MG TAB.RAPDIS TRANSLINGU ×2 (02:23→08:43)
[2024-03-09 03:56] VITALS: BP 161/72; PULSE 96; RESP 18; TEMP 36.9; O2SAT 94
[2024-03-09] MEDS: Morphine Sulfate Oral Sol 10 MG/5 ML SOLUTION PO (08:21)
[2024-03-09 08:47] VITALS: BP 186/91; PULSE 91; RESP 25; TEMP 36.8; O2SAT 97
[2024-03-09 09:33] VITALS: BP 167/79
[2024-03-09] MEDS: lisinopriL 20 MG TABLET PO (09:33)
--- NOTE | 2024-03-09 09:33 | PC.NURSE ---
Pt requesting her BP meds only, able to recall the meds and doses. BP hypertensive this morning, provider agreed. Ordered and giving unscheduled dose this morning, has not taken any of her home meds today
[2024-03-09 09:34] VITALS: BP 167/79
[2024-03-09] MEDS: amLODIPine Besylate 5 MG TABLET PO (09:34)
[2024-03-09] MEDS: hydroCHLOROthiazide 25 MG TABLET PO (09:34)
--- NOTE | 2024-03-09 09:59 | PC.NURSE ---
Report called to [facility] director occupational therapist
--- NOTE | 2024-03-09 10:05 | PHA.MEDREC ---
Pharmacy Consult ? Medication Reconciliation Pharmacy has completed the medication reconciliation using med list from hospice ([facility]).
--- NOTE | 2024-03-09 10:36 | MHC.CM.PN ---
PT DISCHARGING TO [facility] AT 11AM VIA [facility] FOR BLS TRANSPORT, CM CONFIRMED W/DTR'S ANNE [phone] AND EDIN (# IN INITIAL CM NOTE).
[2024-03-09 12:13] VITALS: BP 158/78; PULSE 93; RESP 18; TEMP 36.7; O2SAT 97
== END 2024-03-09 12:14 | disposition skilled nursing facility (03) ==
PROVIDERS: Nurse Practitioner Family; Emergency Provider Emergency Medicine; PCP Internal Medicine
DX: N39.0 Urinary tract infection, site not specified (principal); J84.10 Pulmonary fibrosis, unspecified; E87.1 Hypo-osmolality and hyponatremia; E87.6 Hypokalemia; R11.2 Nausea with vomiting, unspecified; R33.9 Retention of urine, unspecified; R51.9 Headache, unspecified; M54.50 Low back pain, unspecified; D64.9 Anemia, unspecified; R26.81 Unsteadiness on feet; N17.9 Acute kidney failure, unspecified; M54.2 Cervicalgia; M25.552 Pain in left hip; M25.551 Pain in right hip; M79.605 Pain in left leg; M79.604 Pain in right leg; Z03.818 Encounter for observation for suspected exposure to other biological agents ruled out; Z79.899 Other long term (current) drug therapy
CPT/HCPCS: 0241U; 36415; 51702; 51798; 70450; 72100; 72125; 73521; 80053; 81001; 83735; 84484; 85025; 93005; 96361; 96365; 96366; 99285; J3480

== ENCOUNTER → 2024-03-07 20:40 | Outpatient (BNV) | payer MEDICARE, OTHER, SELFPAY | PROVIDERS: Emergency Provider Emergency Medicine; PCP Internal Medicine; Visit Provider Internal Medicine Cardiovascular Disease | DX: R94.31 Abnormal electrocardiogram [ECG] [EKG] (principal); R53.1 Weakness; R51.9 Headache, unspecified; W18.12XA Fall from or off toilet with subsequent striking against object, initial encounter | CPT/HCPCS: 93010 ==

== ENCOUNTER 2024-03-19 12:04 | Outpatient (REF) | payer MEDICARE, OTHER, SELFPAY | END 2024-03-19 12:05 | disposition home or self-care (01) | LOC: HO.HOSX 12:04 | PROVIDERS: Visit Provider Orthopaedic Surgery | DX: Z13.89 Encounter for screening for other disorder (principal) ==